=== PATIENT | female | born 1940 | race Caucasian/White ===

== ENCOUNTER 2025-01-12 10:47 | Outpatient (CLI) | payer MEDICARE, SELFPAY ==
--- NOTE | 2025-01-12 11:20 | ECG_ITS ---
Test Date: 2025-01-12 11:29:46 Measurements Intervals [place] Rate: 57 P: 70 AK: 167 QRS: 9 QRSD: 108 T: 61 QT: 441 QTc: 432 Interpretive Statements SINUS BRADYCARDIA NONSPECIFIC ST & T-WAVE ABNORMALITY No previous ECG available for comparison Electronically Signed On 01-12-2025 13:17:36 CDT by Avis Villatoro M.D.
[2025-01-12 11:55] LABS: Anion Gap 11 mmol/L (4-12); Blood Urea Nitrogen 37 mg/dL (7-17); Calcium 9.7 mg/dL (8.4-10.2); Carbon Dioxide 26 mmol/L (22-30); Chloride 101 mmol/L (98-107); Estimated Glomerular Filt Rate 29; Glucose 106 mg/dL (65-110); Potassium 3.8 mmol/L (3.4-5.0); Sodium 138 mmol/L (137-145)
[2025-01-12 12:00] LABS: INR 1.1; Prothrombin Time 14.5 Seconds (11.1-14.7)
[2025-01-12 12:01] LABS: Partial Thromboplastin Time 36.1 Seconds (22.3-36.8)
--- OUTSIDE RECORDS SUMMARY | 2025-01-12 12:06 | XMS_ITS | Encounter Summary ---
Author Organization [facility] Address [address] [facility] [place] [address] Phone Care Team Providers Care Physician Office Rep Name Role Phone Rob Mendoza MD Primary Care Provider [phone] Teresa Ch MD Primary Care Provider [phone] Jasmin Kyle MD Unavailable Artie Flynn MD Primary Care Provider [phone] Chichi Gomez RN Unavailable Unavailable Encounter Details Date Type Department Care Team (Late st Contact Info) Description 08/10/2024 Nursing Facility [facility] [address] [place] [address] Chris Chau, PAC [address] [place], [place] [id number] Social History Tobacco Use Types Packs/Day Years Used Date Smoking Tobacco: Former Cigarettes Q uit: 02/28/2014 Smokeless Tobacco: Never Alcohol Use Standard Drinks/Week Comments No 0 (1 standard drink = 0.6 oz pur e alcohol) [facility] Utilities Answer Date Recorded In the past 12 months has [employer] gas, oil, or water company threatened to shut off services in your home? Patient declined 06/30/2024 Social Connection and Isolation Panel [NHANES] A nswer Date Recorded In a typical week, how many times do you talk on the phone with family, friends, or neighbors? Patient declined 06/30/2024 How often do you get togethe r with friends or relatives? Patient declined 06/30/2024 How often do you attend advent or methodist serv ices? Patient declined 06/30/2024 Do you belong to any clubs o r organizations such as advent groups, unions, fraternal or athletic groups, or school groups? Patient declined 06/30/2024 How often do you attend meet ings of the clubs or organizations you belong to? Patient declined 06/30/2024 Are you , , di vorced, , never , or living with a partner? Patient declined 06/30/2024 AUDIT-C Answer Date Recorded Q1: How often do you have a drink containing alc ohol? Patient declined 06/30/2024 Q2: How many drinks containi ng alcohol do you have on a typical day when you are drinking? Patient declined 06/30/2024 Q3: How often do you have si x or more drinks on one occasion? Patient declined 06/30/2024 Overall Financial Resource Strain (CARDIA) Answe r Date Recorded How hard is it for you to pa y for the very basics like food, housing, medical care, and heating? Patient declined 06/30/2024 PHQ-2 Answer Date Recorded Total Score - Questions 1-9 0 12/17 [facility] of Occupat ional [facility] - Occupational Stress Questionnaire Answer Date Recorded Do you feel stress - tense, restless, nervous, or anxious, or unable to sleep at night because your mind is troubled all the time - these days? Patient declined 06/30/2024 Exercise Vital Sign Answer Date Recorde d On average, how many days pe r week do you engage in moderate to strenuous exercise (like a brisk walk)? Patient declined On average, how many minutes do you engage in exercise at this level? Patient declined 06/30/2024 Hunger Vital Sign Answer Date Recorded Within the past 12 months, y ou worried that your food would run out before you got the money to buy more. Patient declined Within the past 12 months, t he food you bought just didn't last and you didn't have money to get more. Patient declined PRAPARE - Transportation Answer Date Re corded In the past 12 months, has l ack of transportation kept you from medical appointments or from getting medications? Patient declined 06/30/2024 In the past 12 months, has l ack of transportation kept you from meetings, work, or from getting things needed for daily living? Patient declined 06/30/2024 Housing Stability Vital Sign Answer Cosme e Recorded In the last 12 months, was t here a time when you were not able to pay the mortgage or rent on time? No 01/11/2024 In the last 12 months, how many places have you lived? 1 01/11/2024 In the last 12 months, was t here a time when you did not have a steady place to sleep or slept in a senior living (including now)? No 01/11/2024 Housing Stability Vital Sign Answer Cosme e Recorded In the last 12 months, was t here a time when you were not able to pay the mortgage or rent on time? Patient declined 06/30/20 24 In the past 12 months, how m any times have you moved where you were living? 1 06/30/2024 At any time in the past 12 m [facility], were you homeless or living in a senior living (including now)? Patient declined 06/30/2024 Sexually Active Control Partners Comments Not Currently Comments No Sex and Gender Information Value Date Recorded Sex Assigned at Not on file Legal Sex Female 7:34 PM CDT Gender Identity Not on file Sexual Orientation Not on file documented as of this encounter Progress Notes * Chris Chau, PAC - 08/10/2024 2:22 PM CDT [facility] PROGRESS NOTE Nichelle Hunt is a 84 y.o. female at [facility] Nursing facility for rehabilitation. Subjective: Interval History: I am seeing patient today for a skilled encounter. She is sitting up comfortably in her bed. Says she is feeling ???better?? . Shortness of breath is much improved. Orthopnea has basically resolved. She has no acute concerns at this time. Past Medical History Positives Diagnosis Date Glaucoma Gout Hypertension Melanoma (HCC) on left side of face Osteoporosis Stroke (HCC) Thyroid disease Vitamin D deficiency Family History Problem Relation Age of Onset Cancer Mother Social History Socioeconomic History Marital status: Spouse name: Not on file Number of children: Not on file Years of education: Not on file Highest education level: Not on file Occupational History Not on file Tobacco Use Smoking status: Former Current packs/day: 0.00 Types: Cigarettes Quit date: 02/28/2014 Years since quittin.4 Smokeless tobacco: Never Vaping Use Vaping status: Never Used Substance and Sexual Activity Alcohol use: No Alcohol/week: 0.0 oz Drug use: No Sexual activity: Not Currently Other Topics Concern Not on file Social History Narrative Not on file Social Determinants of Health Financial Resource Needs: Patient Declined (06/30/2024) Overall Financial Resource Strain (CARDIA) Difficulty of Paying Living Expenses: Patient declined Food Insecurity Needs: Patient Declined (06/30/2024) Hunger Vital Sign Worried About Running Out of Food in the Last Year: Patient declined Ran Out of Food in the Last Year: Patient declined Transportation Needs: Patient Declined (06/30/2024) PRAPARE - Transportation Lack of Transportation (Medical): Patient declined Lack of Transportation (Non-Medical): Patient declined Physical Activity: Patient Declined (06/30/2024) Exercise Vital Sign Days of Exercise per Week: Patient declined Minutes of Exercise per Session: Patient declined Stress: Patient Declined (06/30/2024) [employer] [place] of Occupational Health - Occupational Stress Questionnaire Feeling of Stress : Patient declined Social Integration: Patient Declined (06/30/2024) Social Connection and Isolation Panel [NHANES] Frequency of Communication with Friends and Family: Patient declined Frequency of Social Gatherings with Friends and Family: Patient declined Attends Quaker Services: Patient declined Active Member of Clubs or Organizations: Patient declined Attends Club or Organization Meetings: Patient declined Marital Status: Patient declined Intimate Partner Violence: Patient Declined (06/30/2024) Humiliation, Afraid, Rape, and Kick questionnaire Fear of Current or Ex-Partner: Patient declined Emotionally Abused: Patient declined Physically Abused: Patient declined Sexually Abused: Patient declined Housing Stability: Patient Declined (06/30/2024) Housing Stability Vital Sign Unable to Pay for Housing in the Last Year: Patient declined Number of Times Moved in the Last Year: 1 Homeless in the Last Year: Patient declined Past Surgical History: Procedure Laterality Date APPENDECTOMY BACK SURGERY CARPAL TUNNEL RELEASE Bilateral CHOLECYSTECTOMY EYE SURGERY Bilateral 2013 cataract surgery with lens implant HAND SURGERY HIP SURGERY Right HYSTERECTOMY Review of Systems: A 14 point comprehensive review of systems was negative except what is documented in interval history above. Objective: Exam: Vital Signs: Recent vital signs were reviewed in the electronic medical records at nursing facility and are unremarkable. General: Well developed, well nourished, in no distress - pleasant, obese I a higher Skin: Normal appearance, normal turgor, -skin lesion lateral to left nose - wound dressing on distal right lower extremity is clean, dry and intact HEENT: Normocephalic, atraumatic, no flaring Eyes: nonicteric, intact extra occular movement, PERRL Neck: normal, supple, no lymphadenopathy Heart: regular rate and rhythm, S1, S2 normal, no murmur, click, rub or gallop Lungs: clear to ausculation, normal respirations with no accessory muscle use, normal rate Abdominal: soft, non-tender; bowel sounds normal; no masses, no organomegaly Extremities: no deformities, joint mobility appears intact, no clubbing Neuro: Non-focal, CN intact, sensory and motor intact Psychological: alert and oriented X3, appropriate mood and affect, Intact judgement and memory Lab Results: 07/06/2024: BUN 31, albumin 2.2 and alk-phos 149, rest of CMP is unremarkable. CBC with WBC of 3.4,hemoglobin 10.5 otherwise unremarkable. 07/26/2024: CMP with albumin 2.4, alk-phos 153 otherwise unremarkable. CBC with WBC of 2.7, hemoglobin 10.6, platelet count 81 otherwise unremarkable. Imaging: Arterial Doppler results from 07/14/2024: IMPRESSION: . 1. Atherosclerotic changes in visualized bilateral lower limb arteries with multifocal calcified and soft plaques. 2. Monophasic waveform in right distal SFA and both DPA favoring severe peripheral arterial diseasewith possibility of hemodynamic significant stenosis. No flow seen in right MONOMER RECOVERY SUPERVISOR, right SFA, right popliteal and both TOBACCO WETTER, possibility of their complete occlusion cannot be excluded. CT angiogram is advised for further evaluation. . Interpreting Radiology Company: [employer] ([employer]) . Interpreting Doctor: Lita Ortiz MD . Electronically Signed By: Lita Ortiz MD . Signed Date: Physician electronically signed on - 07/14/2024 09:22:35 PM 08/07/2024 Chest x-ray IMPRESSION: . Findings suggestive of worsened CHF more more focal airspace changes in the left lower lobe retrocardiac region with unchanged opacity in the right mid lung. Assessment/Plan: Acute COVID 19 infection 07/24: Diagnosed this afternoon. Continue supportive care. I will schedule the Tessalon for her cough. P.r.n. Zofran. Rest and hydration. Paxilovid not ordered due to the finances. Does not meet criteria for Decadron. Nursing staff to monitor vitals and O2 saturations very closely. 08/02: Symptoms are improving. 08/07/2024: She developed hypoxia last night and is requiring oxygen presumably from her COVID-19 infection. Will check x-ray to investigate further. DuoNebs have been scheduled for the rest of the week and can be used p.r.n. as well. I ordered a course of Decadron. Mucinex scheduled for the rest of week. Oxygen to be weaned as tolerated 08/10: Her respiratory status is much improved. Chronic systolic congestive heart failure 08/10: Decompensated earlier this week. I restarted her Bumex which she had been on prior to her hospitalization. She is doing better today. body weight and kidney function needs to be monitored closely while on the Bumex considering during her hospitalization she had severe MILDRED. Generalized weakness and deconditioning Receiving snf care and physical therapy rehabilitation Right lower extremity cellulitis Complicated by chronic ulceration, bilateral lymphedema and chronic venous insufficiency Wound Care following P.r.n. pain medications On a course of cefuroxime through 07/15/202407/10: I applied Dwayne wraps to both of the lower extremities today and she says that this gave her relief. Will continue with the Dwayne wraps during the day take off at night 07/17: No signs of infection. Wound Care following. Peripheral arterial disease Arterial Dopplers from 07/14/2024 showing severe peripheral arterial disease. 07/17/2024: I added aspirin and statin on to her regimen. CT angio aorta with runoff ordered for further evaluation 07/24: CT angio completed last week showing mild disease and no need for surgical referral at this time. Constipation Complicated by her current oxycodone use and being less mobile than normal 07/10: Uncontrolled. MiraLax increase to b.i.d. and start her on Colace b.i.d.. 07/17: Resolved 08/07: She developed diarrhea recently. MiraLax changed to p.r.n. and her Movantik has been discontinued. 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 This note was dictated using [employer] fluency dictation system and there may be errors in chief order dispatcher. Despite proof reading the note, there may be mistakes and I apologize for those. By: Chris Chau, PAC, 08/10/2024 2:22 PM CDT documented in this encounter Plan of Treatment Upcoming Encounters Date Type Department Care Team (Late st Contact Info) Description 06/07/2025 11:00 AM CDT Office Visit [facility] - Primary Care - [place] [address] [place] [address] Artie Flynn MD [address] [place] [address] documented as of this encounter Visit Diagnoses Not on filedocumented in this encounter Additional Health Concerns Assessment Noted Time PHQ-9 Depression Total Score: 0 01/11/20 24 9:52 AM CDT documented as of this encounter Care Teams Physician Office Rep Relationship Specialty Start Date End Date Rob Mendoza MD #[address] [address] PCP - General Family Medicine 09/30/18 08/31/24 Teresa Ch MD [address] [place] [address] PCP - General Family Medicine 09/01/24 12/03/24 Artie Flynn MD [address] [place] [address] PCP - General Internal Medicine 12/04/24 Jasmin Kyle MD [address] [place] [address] Consulting Physician Dermatology 12/04/24 Chichi Gomez RN [place] Nurse Scaffold Worker 01/01/25 documented as of this encounter
--- OUTSIDE RECORDS SUMMARY | 2025-01-12 12:06 | XMS_ITS | Encounter Summary ---
Author Organization [facility] Address [address] [facility] [place] [address] Phone Care Team Providers Care Bulk Picker Name Role Phone Rob Mendoza MD Primary Care Provider [phone] Teresa Ch MD Primary Care Provider [phone] Jamsin Kyle MD Unavailable [phone] Artie Flynn MD Primary Care Provider [phone] Chichi Gomez RN Unavailable Unavailable Encounter Details Date Type Department Care Team (Late st Contact Info) Description 07/24/2024 Nursing Facility [facility] [address] [place] [address] Chris Chau, PAC [address] [place], [place] [id number] Social History Tobacco Use Types Packs/Day Years Used Date Smoking Tobacco: Former Cigarettes Q uit: 02/28/2014 Smokeless Tobacco: Never Alcohol Use Standard Drinks/Week Comments No 0 (1 standard drink = 0.6 oz pur e alcohol) [facility] Utilities Answer Date Recorded In the past 12 months has [employer], gas, oil, or water company threatened to [...] declined 06/30/2024 How often do you attend mandaeism or faith serv ices? Patient declined 06/30/2024 Do you belong to any clubs o r organizations such as mandaeism groups, unions, fraternal or athletic groups, or [...] Total Score - Questions 1-9 0 12/17 [facility] of Occupat ional [facility] - Occupational Stress Questionnaire Answer Date Recorded [...] place to sleep or slept in a fdc (including now)? No 01/11/2024 Housing Stability Vital [...] any time in the past 12 m [facility], were you homeless or living in a fdc (including now)? Patient declined 06/30/2024 Sexually Active Control Partners Comments Not Currently Comments No Sex and Gender Information Value Date Recorded Sex Assigned at Not on file Legal Sex Female 7:34 PM CDT Gender Identity Not on file Sexual Orientation Not on file documented as of this encounter Progress Notes * Chris Chau, PAC - 07/24/2024 6:06 PM CDT [facility] PROGRESS NOTE Nichelle Hunt is a 84 y.o. female at [facility] for rehabilitation. Subjective: Interval History: I am seeing patient today for a skilled encounter. She is lying comfortably in bed. She says she is not been feeling well for your the last couple days. Reports that she has been having a nonproductive cough, feeling short of breath, sore throat, chills and also having diarrhea. I gave the nurse some orders which included checking for COVID and the nurse messaged me back this afternoon reporting that her COVID test was positive. Past Medical History Positives Diagnosis Date Glaucoma [...] Session: Patient declined Stress: Patient Declined (06/30/2024) [place] of Occupational Health - Occupational Stress Questionnaire Feeling of Stress : Patient declined Social Integration: Patient Declined (06/30/2024) Social Connection and Isolation Panel [NHANES] Frequency of Communication with Friends and Family: Patient declined Frequency of Social Gatherings with Friends and Family: Patient declined Attends Anglican Services: Patient declined Active Member of Clubs [...] with WBC of 3.4,hemoglobin 10.5 otherwise unremarkable. Imaging: Arterial Doppler results from 07/14/2024: IMPRESSION: . 1. Atherosclerotic changes in visualized bilateral lower limb arteries with multifocal calcified and soft plaques. 2. Monophasic waveform in right distal SFA and both DPA favoring severe peripheral arterial diseasewith possibility of hemodynamic significant stenosis. No flow seen in right CLAIM REPRESENTATIVE, right SFA, right popliteal and both HOME SCHOOL LIAISON OFFICER, possibility of their complete occlusion cannot be excluded. CT angiogram is advised for further evaluation. . Interpreting Radiology Company: [employer] . Interpreting Doctor: Lita Ortiz MD . Electronically Signed By: Lita Ortiz MD . Signed Date: Physician electronically signed on - 07/14/2024 09:22:35 PM Assessment/Plan: Acute COVID 19 infection 07/24: Diagnosed this afternoon. Continue supportive care. I will schedule the Tessalon for her cough. P.r.n. Zofran. Rest and hydration. Paxilovid not ordered due to the finances. Does not meet criteria for Decadron. Nursing staff to monitor vitals and O2 saturations very closely. Generalized weakness and deconditioning Receiving long-term care and physical therapy rehabilitation Right lower [...] start her on Colace b.i.d.. 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 This note was dictated using M*Modal fluency dictation system and there may be errors in pointer machine operator. Despite proof reading the note, there may be mistakes and I apologize for those. By: BURT Styles, 07/24/2024 6:06 PM CDT documented in this encounter Plan of Treatment Upcoming Encounters Date Type Department Care Team (Late st Contact Info) Description 06/07/2025 11:00 AM CDT Office Visit [facility] - Primary Care - [place] [address] [place] [address] Artie Flynn MD [address] [place] [address] documented as of this encounter Visit Diagnoses Not on filedocumented in this encounter Additional Health Concerns Assessment Noted Time PHQ-9 Depression Total Score: 0 01/11/20 9:52 AM CDT documented as of this encounter Care Teams Bulk Picker Relationship Specialty Start Date End Date Rob Mendoza MD #[address] [address] PCP - General Family Medicine 09/30/18 08/31/24 Teresa Ch MD [address] [place] [address] PCP - General Family Medicine 09/01/24 12/03/24 Artie Flynn MD [address] [place] [address] PCP - General Internal Medicine 12/04/24 Jasmin Kyle MD [address] [place] [address] Consulting Physician Dermatology 12/04/24 Chichi Gomez, RN [place] Nurse Nurse Orthopaedic 01/01/25 documented as of this encounter
--- OUTSIDE RECORDS SUMMARY | 2025-01-12 12:06 | XMS_ITS | Encounter Summary ---
Author Organization [facility] Address [address] [facility] [place] [address] Phone Care Team Providers Care [employer] Humanities Teacher Name Role Phone Jasmin Kyle MD Unavailable [phone] Artie Flynn MD Primary Care Provider [phone] Chichi Gomez RN Unavailable Unavailable Reason for Visit * Reason Onset Date Comments Advice Only 12/20/2024 Encounter Details Date Type Department Care Team (Late st Contact Info) Description 12/20/2024 Telephone [facility] [address] [place] [address] Artie Flynn MD [address] [place] [address] Advice Only Social History Tobacco Use Types Packs/Day Years Used Date Smoking Tobacco: Former Cigarettes Q uit: 02/28/2014 Smokeless Tobacco: Never Alcohol Use Standard Drinks/Week Comments No 0 (1 standard drink = 0.6 oz pur e alcohol) [facility] Utilities Answer Date Recorded In the past 12 months has [employer] electric, gas, oil, or water company threatened to shut off services in your home? No 12/04/2024 Social Connection and Isolat ion Panel [NHANES] Answer Date Recorded In a typical week, how many times do you talk on the phone with family, friends, or neighbors? Once a week 12/04/2024 How often do you get togethe r with friends or relatives? Never 12/04/2024 How often do you attend chur ch or pentecostalism services? More than 4 times per year 12/04/2024 Do you belong to any clubs o r organizations such as scientology groups, unions, fraternal or athletic groups, or school groups? Yes 12/04/2024 How often do you attend meet ings of the clubs or organizations you belong to? Never 12/04/2024 Are you , , di vorced, , never , or living with a partner? 12/04/2024 AUDIT-C Answer Date Recorded Q1: How often do you have a drink containing alcohol? Patient declined 12/04/2024 Q2: How many drinks containi ng alcohol do you have on a typical day when you are drinking? Patient does not drink Q3: How often do you have si x or more drinks on one occasion? Never 12/04/2024 Overall Financial Resource Strain (CARDIA) Answe r Date Recorded How hard is it for you to pa y for the very basics like food, housing, medical care, and heating? Not hard at all 12/04/2024 PHQ-2 Answer Date Recorded Total Score - Questions 1-9 0 11/18 [facility] - Occupational Stress Questionnaire Answer Date Recorded Do you feel stress - tense, restless, nervous, or anxious, or unable to sleep at night because your mind is troubled all the time - these days? Not at all 12/04/2024 Exercise Vital Sign Answer Date Recorde d On average, how many days pe r week do you engage in moderate to strenuous exercise (like a brisk walk)? 5 days 12/04/2024 On average, how many minutes do you engage in exercise at this level? 10 min 12/04/2024 Hunger Vital Sign Answer Date Recorded Within the past 12 months, y ou worried that your food would run out before you got the money to buy more. Never true 12/04/19 25 Within the past 12 months, t he food you bought just didn't last and you didn't have money to get more. Never true 12/04/2024 PRAPARE - Transportation Answer Date Re corded In the past 12 months, has l ack of transportation kept you from medical appointments or from getting medications? No 02/1 04/2025 In the past 12 months, has l ack of transportation kept you from meetings, work, or from getting things needed for daily living? No 12/04/2024 Housing Stability Vital Sign Answer Cosme e [...] place to sleep or slept in a halfway (including now)? No 01/11/2024 Housing Stability Vital Sign Answer Cosme e Recorded In the last 12 months, was t here a time when you were not able to pay the mortgage or rent on time? No 12/04/2024 In the past 12 months, how m any times have you moved where you were living? 1 12/04/2024 At any time in the past 12 m [facility], were you homeless or living in a halfway (including now)? No 12/04/2024 Sexually Active Control Partners Comments Not Currently Comments No Sex and Gender Information Value Date Recorded Sex Assigned at Not on file Legal Sex Female 7:34 PM CDT Gender Identity Not on file Sexual Orientation Not on file documented as of this encounter Miscellaneous Notes * Telephone Encounter - Kimmy Ruiz RN - 12/20/2024 12:13 PM CITY COLLECTOR Routing to Tori Pickard change control specialist. COLLECTOR * Telephone Encounter - Bernie Hidalgo - 12/20/2024 12:02 PM CST call came in from [facility] for Nichelle Hunt a referral to a district court reporter and it was sent to a plastic surgeon they just wanted to get the referral to the right office. Please check on it and get it to the right place Patient's PCP is Artie Flynn MD. Thank you. COLLECTOR documented in this encounter Plan of Treatment Upcoming Encounters Date Type Department Care Team (Late st Contact Info) Description 06/07/2025 11:00 AM CDT Office Visit [facility] - Primary Care - [place] [address] [place] [address] Artie Flynn MD [address] [place] [address] documented as of this encounter Visit Diagnoses Not on filedocumented in this encounter Additional Health Concerns Assessment Noted Time PHQ-9 Depression Total Score: 0 12/04/19 1:05 PM CITY COLLECTOR documented as of this encounter Care Teams [employer] Humanities Teacher Relationship Specialty Start Date End Date Artie Flynn MD [address] [place] [address] PCP - General Internal Medicine 12/04/24 Jasmin Kyle MD [facility] [place] [address] Consulting Physician Dermatology 12/04/24 Chichi Gomez RN [place] Nurse Blocker Automatic 01/01/25 documented as of this encounter
--- OUTSIDE RECORDS SUMMARY | 2025-01-12 12:06 | XMS_ITS | Encounter Summary ---
Author Organization [facility] Address [address] [place] [address] Phone Care Team Providers Care Marketing Trainee Name Role Phone Rob Mendoza MD Primary Care Provider Chichi Gomez RN Unavailable Unavailable Phan Gómez MD Unavailable Teresa Ch MD Primary Care Provider [phone] Jasmin Kyle MD Unavailable [phone] Artie Flynn MD Primary Care Provider [phone] Chichi Gomez RN Unavailable Unavailable Reason for Visit * Reason Comments Medication Refill Encounter Details Date Type Department Care Team (Late st Contact Info) Description 07/02/[facility] [address] [place] [address] Rob Mendoza MD [address] [address] Medication Refill Social History Tobacco Use Types Packs/Day Years Used Date Smoking Tobacco: Former Cigarettes Q uit: 02/28/2014 Smokeless Tobacco: Never Alcohol Use Standard Drinks/Week Comments No 0 (1 standard drink = 0.6 oz pur e alcohol) PHQ-2 Answer Date Recorded PHQ-2 Score 0 06/28/2019 Comments No Sex and Gender Information Value Date Recorded Sex Assigned at Not on file Legal Sex Female 7:34 PM CDT Gender Identity Not on file Sexual Orientation Not on file documented as of this encounter Miscellaneous Notes * Telephone Encounter - Rob Mendoza MD - 07/03/2020 12:21 PM CDT Prescription approved. Please call in * Telephone Encounter - Virginia Underwood - 07/03/2020 12:02 PM CDT Medication failed the protocol provider to review and approve the medication order. Requested Prescriptions Pending Prescriptions Disp Refills levothyroxine (SYNTHROID) 50 MCG Tablet [Pharmacy Med Name: L-THYROXINE (SYNTHROID) TABS 50MCG] 90 Tab 1 Sig: TAKE 1 TABLET DAILY Endocrinology: Hypothyroid Agents Passed - 07/02/2020 11:10 PM Passed - Valid encounter within last 12 months Past Office Visits Recent Outpatient Visits 5 months ago CAD S/P percutaneous coronary angi[facility] Rob Mendoza MD 11 months ago CAD S/P percutaneous coronary angi[facility] Rob Mendoza MD 1 year ago Essential hypertension [facility] Rob Mendoza MD 1 year ago Essential hypertension [facility] Criss Galdamez PAC 2 years ago Essential hypertension [facility] Cee Contreras MD Upcoming Appointments Future Appointments In 1 week Lab, [facility], [facility] In 2 weeks Rob Mendoza MD [facility], [facility] [place] FLOOR INSTALLER - Recent and Past Visits Recent Visits Date Type Provider Dept 01/18/20 Telemedicine Rob Mendoza MD [facility] 07/19/19 Office Visit Rob Mendoza MD [facility] Showing recent visits within past 460 days with a meds authorizing provider and meeting all other requirements Future Appointments Date Type Provider Dept 07/22/20 Appointment Rob Mendoza MD [facility] Showing future appointments within next 90 days with a meds authorizing provider and meeting all other requirements Passed - TSH in normal range and within 360 days TSH Date Value Ref Range Status 01/09/2020 1.630 0.270 - 4.200 mIU/L Final Routing to PCP for review r/t unable to sign due to lab values. * Telephone Encounter - Virginia Underwood - 07/03/2020 12:02 PM CDT ?? BUN 31 (H) 01/09/2020 ?? CALCIUM 9.6 01/09/2020 ?? CREATININE 1.23 (H) 01/09/2020 documented in this encounter Plan of Treatment Upcoming Encounters Date Type Department Care Team (Late st Contact Info) Description 06/07/2025 11:00 AM CDT Office Visit [facility] - Primary Care - Steve [address] [place] [address] Artie Flynn MD [address] [place] [address] documented as of this encounter Visit Diagnoses Not on filedocumented in this encounter Additional Health Concerns Assessment Noted Time PHQ-9 Depression Total Score: 0 01/24/20 19 10:00 AM CDT documented as of this encounter Care Teams Marketing Trainee Relationship Specialty Start Date End Date Rob Mendoza MD [address] [address] PCP - General Family Medicine 09/30/18 08/31/24 Phan Gómez MD [address] [place] [address] PCP - Hospice Attending Provider 06/30/24 07/03/24 Teresa Ch MD [address] [place] [address] PCP - General Family Medicine 09/01/24 12/03/24 Artie Flynn MD [address] [place] [address] PCP - General Internal Medicine 12/04/24 Chichi Gomez RN [place] Nurse Budget Engineer 01/05/24 07/03/24 Jasmin Kyle MD [address] [place] [address] Consulting Physician Dermatology 12/04/24 Chichi Gomez, RN [place] Nurse Budget Engineer 01/01/25 documented as of this encounter
--- OUTSIDE RECORDS SUMMARY | 2025-01-12 12:06 | XMS_ITS | Encounter Summary ---
Author Organization [facility] Address [address] [place] [address] Phone Care Team Providers Care Investor Relations Associate Name Role Phone Rob Mendoza MD Primary Care Provider [phone] Teresa Ch MD Primary Care Provider [phone] Jasmin Kyle MD Unavailable Artei Flynn MD Primary Care Provider [phone] Chichi Gomez RN Unavailable Unavailable Encounter Details Date Type Department Care Team (Late st Contact Info) Description 08/07/2024 Nursing Facility [facility] [address] [place] [address] Chris Chau, PAC [address] [place], [place] [id number] Social History Tobacco Use Types Packs/Day Years Used Date Smoking Tobacco: Former Cigarettes Q uit: 02/28/2014 Smokeless Tobacco: Never Alcohol Use Standard Drinks/Week Comments No 0 (1 standard drink = 0.6 oz pur e alcohol) [facility] Utilities Answer Date Recorded In the past 12 months has [employer], gas, oil, or water company threatened to [...] declined 06/30/2024 How often do you attend quaker or mandaeism serv ices? Patient declined 06/30/2024 Do you belong to any clubs o r organizations such as quaker groups, unions, fraternal or athletic groups, or [...] Total Score - Questions 1-9 0 12/17 [facility] - Occupational Stress Questionnaire Answer Date Recorded [...] place to sleep or slept in a correction (including now)? No 01/11/2024 Housing Stability Vital [...] were you homeless or living in a correction (including now)? Patient declined 06/30/2024 Sexually Active Control Partners Comments Not Currently Comments No Sex and Gender Information Value Date Recorded Sex Assigned at Not on file Legal Sex Female 7:34 PM CDT Gender Identity Not on file Sexual Orientation Not on file documented as of this encounter Progress Notes * Chris Chau, PAC - 08/07/2024 11:37 AM CDT [facility] CORRECTION PROGRESS NOTE Nichelle Hunt is a 84 y.o. female at [facility]. Subjective: Interval History: I am seeing patient today for a skilled encounter. She is sitting comfortably in her chair. Reports that last night she was having shortness of breath and feeling overheated. Oxygen saturation was apparently as low as 78% according to the patient. She was placed on supplemental oxygen. Currently she says she is feeling ???better?? . No fevers. No chest pain or worsening edema. She is still wearing 3 L supplemental oxygen which is a new requirement for her, her oxygen saturation is 97% on the 3 L at this time. The rest of her vitals are within normal limits during my exam. She is currently using her inhaler. She says that at home when she gets short of breath like this she has a nebulizer that she uses. Past Medical History Positives Diagnosis Date Glaucoma [...] Session: Patient declined Stress: Patient Declined (06/30/2024) [facility] - Occupational Stress Questionnaire Feeling of Stress : Patient declined Social Integration: Patient Declined (06/30/2024) Social Connection and Isolation Panel [NHANES] Frequency of Communication with Friends and Family: Patient declined Frequency of Social Gatherings with Friends and Family: Patient declined Attends Restoration Services: Patient declined Active Member of Clubs [...] significant stenosis. No flow seen in right THEATRE PROFESSOR, right SFA, right popliteal and both SHEETER OPERATOR, possibility of their complete occlusion cannot be excluded. CT angiogram is advised for further evaluation. . Interpreting Radiology Company: [employer] . Interpreting Doctor: Lita Ortiz MD . [...] week. 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 This note was dictated using [employer] fluency dictation system and there may be errors in shoeblack. Despite proof reading the note, there may be mistakes and I apologize for those. By: Chris Chau PAC, 08/07/2024 11:40 AM CDT documented in this encounter Plan of Treatment Upcoming Encounters Date Type Department Care Team (Late st Contact Info) Description 06/07/2025 11:00 AM CDT [facility] - [place] [address] [place] [address] Artie Flynn MD [address] [place] [address] documented as of this encounter Visit Diagnoses Not on filedocumented in this encounter Additional Health Concerns Assessment Noted Time PHQ-9 Depression Total Score: 0 01/11/20 24 9:52 AM CDT documented as of this encounter Care Teams Investor Relations Associate Relationship Specialty Start Date End Date Rob Mendoza MD [address] [address] PCP - General Family Medicine 09/30/18 08/31/24 Teresa Ch MD [address] [place] [address] PCP - General Family Medicine 09/01/24 12/03/24 Artie Flynn MD [address] [place] [address] PCP - General Internal Medicine 12/04/24 Jasmin Kyle MD [address] [place] [address] Consulting Physician Dermatology 12/04/24 Chichi Gomez RN [place] Nurse Caterpillar Mechanic 01/01/25 documented as of this encounter
--- OUTSIDE RECORDS SUMMARY | 2025-01-12 12:06 | XMS_ITS | Encounter Summary ---
Author Organization [facility] Address [address] [place] [address] Phone Care Team Providers Care Edge Trimmer Name Role Phone Rob Mendoza MD Primary Care Provider [phone] Chichi Gomez RN Unavailable Unavailable Phan Gómez MD Unavailable [phone] Teresa Ch MD Primary Care Provider [phone] Jasmin Kyle MD Unavailable [phone] Artie Flynn MD Primary Care Provider [phone] Chichi Gomez RN Unavailable Unavailable Reason for Visit * Reason Comments Medication Refill Encounter Details Date Type Department Care Team (Late st Contact Info) Description 03/16/2024 Refill [facility] - Family Medicine [facility] [address] [place] [address] Rob Mendoza MD [address] [address] Medication Refill Social History Tobacco Use Types Packs/Day Years Used Date Smoking Tobacco: Former Cigarettes Q uit: 02/28/2014 Smokeless Tobacco: Never Alcohol Use Standard Drinks/Week Comments No 0 (1 standard drink = 0.6 oz pur e alcohol) [facility] Utilities Answer Date Recorded In the past 12 months has [employer] electric, gas, oil, or water company threatened to shut off services in your home? No 01/11/2024 Social Connection and Isolation Panel [NHANES] A nswer Date Recorded In a typical week, how many times do you talk on the phone with family, friends, or neighbors? Once a week 01/11/20 How often do you get togethe r with friends or relatives? Never 01/11/2024 How often do you attend chur ch or faith services? 1 to 4 times per year 01/11/2024 Do you belong to any clubs o r organizations such as latter day groups, unions, fraternal or athletic groups, or school groups? No 01/11/2024 How often do you attend meet ings of the clubs or organizations you belong to? Never 01/11/2024 Are you , , di vorced, , never , or living with a partner? 01/11/2024 AUDIT-C Answer Date Recorded Q1: How often do you have a drink containing alcohol? Never 01/11/2024 Q2: How many drinks containi ng alcohol do you have on a typical day when you are drinking? Patient does not drink Q3: How often do you have si x or more drinks on one occasion? Never 01/11/2024 Overall Financial Resource Strain (CARDIA) Answe r Date Recorded How hard is it for you to pa y for the very basics like food, housing, medical care, and heating? Not hard at all 01/11/2024 PHQ-2 Answer Date Recorded Total Score - Questions 1-9 0 12/17 [facility] - Occupational Stress Questionnaire Answer Date Recorded Do you feel stress - tense, restless, nervous, or anxious, or unable to sleep at night because your mind is troubled all the time - these days? Not at all 01/11/2024 Exercise Vital Sign Answer Date Recorde d On average, how many days pe r week do you engage in moderate to strenuous exercise (like a brisk walk)? 0 days 01/11/2024 On average, how many minutes do you engage in exercise at this level? 0 min 01/11/2024 Hunger Vital Sign Answer Date Recorded Within the past 12 months, y ou worried that your food would run out before you got the money to buy more. Never true 01/11/20 24 Within the past 12 months, t he food you bought just didn't last and you didn't have money to get more. Never true 01/11/2024 PRAPARE - Transportation Answer Date Re corded In the past 12 months, has l ack of transportation kept you from medical appointments or from getting medications? No 12/17 In the past 12 months, has l ack of transportation kept you from meetings, work, or from getting things needed for daily living? No 01/11/2024 Housing Stability Vital Sign Answer [...] place to sleep or slept in a [place] health care facility (including now)? No 01/11/2024 Sexually Active Control Partners Comments Not Currently Comments No Sex and Gender Information Value Date Recorded Sex Assigned at Not on file Legal Sex Female 7:34 PM CDT Gender Identity Not on file Sexual Orientation Not on file documented as of this encounter Miscellaneous Notes * Telephone Encounter - Ashley Blum RN - 03/16/2024 11:52 AM CDT Medication(s) refilled and signed per [facility] Chronic Medication Refill Standing Order for Pediatricand Adult Patients. Requested Prescriptions Pending Prescriptions Disp Refills potassium chloride SA (KLORCON M) 20 MEQ Tablet Controlled Release [Pharmacy Med Name: POTASSIUM [id number] ER TABLETS] 360 Tablet 0 Sig: Take 2 Tablets by mouth 2 times daily. Potassium Supplement Protocol Passed - 03/16/2024 9:36 AM Passed - Normal serum potassium in past 12 months POTASSIUM Date Value Ref Range Status 03/01/2024 4.1 3.5 - 5.1 mmol/L Final Passed - Visit with relevant provider in past 12 months or upcoming 90 days Recent Visits Date Type Provider Dept 03/01/24 Office Visit Rob Mendoza MD [facility] 11/11/23 Office Visit Rob Mendoza MD [facility] 09/01/23 Office Visit [facility] Showing recent visits within past 365 days and meeting all other requirements Future Appointments No visits were found meeting these conditions. Showing future appointments within next 90 days and meeting all other requirements documented in this encounter Plan of Treatment Upcoming Encounters Date Type Department Care Team (Late st Contact Info) Description 06/07/2025 11:00 AM CDT Office Visit [facility] - Primary Care - [place] [address] [place] [address] Artie Flynn MD [address] [place] [address] documented as of this encounter Visit Diagnoses Not on filedocumented in this encounter Additional Health Concerns Assessment Noted Time PHQ-9 Depression Total Score: 0 01/11/20 9:52 AM CDT documented as of this encounter Care Teams Edge Trimmer Relationship Specialty Start Date End Date Rob Mendoza MD [address] [address] PCP - General Family Medicine 09/30/18 08/31/24 Phan Gómez MD [address] [place] [address] PCP - Hospice Attending Provider 06/30/24 07/03/24 Teresa Ch MD [address] [place] [address] PCP - General Family Medicine 09/01/24 12/03/24 Artie Flynn MD [address] [place] [address] PCP - General Internal Medicine 12/04/24 Chichi Gomez RN [place] Nurse Aquaculture Farmer 01/05/24 07/03/24 Jasmin Kyle MD [address] [place] [address] Consulting Physician Dermatology 12/04/24 Chichi Gomez RN [place] Nurse Aquaculture Farmer 01/01/25 documented as of this encounter
--- OUTSIDE RECORDS SUMMARY | 2025-01-12 12:06 | XMS_ITS | Encounter Summary ---
Author Organization [facility] Address [address] [place] [address] Phone Care Team Providers Care Biochemist Name Role Phone Rbo Mendoza MD Primary Care Provider [phone] Teresa Ch MD Primary Care Provider [phone] Jasmin Kyle MD Unavailable [phone] Artie Flynn MD Primary Care Provider [phone] Chichi Gomez RN Unavailable Unavailable Encounter Details Date Type Department Care Team (Late st Contact Info) Description 08/14/2024 Nursing Facility [facility] [address] [place] [address] Chris Chau, PAC [address] [place], [place] [id number] Social History Tobacco Use Types Packs/Day Years Used Date Smoking Tobacco: Former Cigarettes Q uit: 02/28/2014 Smokeless Tobacco: Never Alcohol Use Standard Drinks/Week Comments No 0 (1 standard drink = 0.6 oz pur e alcohol) [facility] Utilities Answer Date Recorded In the past 12 months has Locationary, gas, oil, or water company threatened to [...] declined 06/30/2024 How often do you attend alevism or sabianist serv ices? Patient declined 06/30/2024 Do you belong to any clubs o r organizations such as alevism groups, unions, fraternal or athletic groups, or [...] Total Score - Questions 1-9 0 12/17 [facility] of Occupat ional [facility] - Occupational Stress Questionnaire Answer Date [...] place to sleep or slept in a residential (including now)? No 01/11/2024 Housing Stability Vital [...] any time in the past 12 m [facility], were you homeless or living in a residential (including now)? Patient declined 06/30/2024 Sexually Active Control Partners Comments Not Currently Comments No Sex and Gender Information Value Date Recorded Sex Assigned at Not on file Legal Sex Female 7:34 PM CDT Gender Identity Not on file Sexual Orientation Not on file documented as of this encounter Progress Notes * Chris Chau, PAC - 08/14/2024 12:22 PM CDT [facility] RESIDENTIAL PROGRESS NOTE Nichelle Hunt is a 84 y.o. female at [facility]. Subjective: Interval History: I am seeing patient today for a skilled encounter. She is sitting up comfortably in her chair. Says she is feeling ???better?? . Denies any shortness of breath. Feels like her respiratory status is back to her baseline. She is no longer requiring supplemental oxygen. She has no acute concerns at this [...] Session: Patient declined Stress: Patient Declined (06/30/2024) [place] [place] [facility] - Occupational Stress Questionnaire Feeling of Stress : Patient declined Social Integration: Patient Declined (06/30/2024) Social Connection and Isolation Panel [NHANES] Frequency of Communication with Friends and Family: Patient declined Frequency of Social Gatherings with Friends and Family: Patient declined Attends Cheondoism Services: Patient declined Active Member of Clubs [...] nourished, in no distress - pleasant, obese Skin: Normal appearance, normal turgor, -skin lesion [...] significant stenosis. No flow seen in right TRAFFIC ASSISTANT, right SFA, right popliteal and both GYNECOLOGY TEACHER, possibility of their complete occlusion cannot be excluded. CT angiogram is advised for further evaluation. . Interpreting Radiology Company: [email or web address] ([employer]) . Interpreting Doctor: Lita Ortiz MD . [...] during her hospitalization she had severe MILDRED. 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 This note was dictated using M*Modal fluency dictation system and there may be errors in cable respooler. Despite proof reading the note, there may be mistakes and I apologize for those. By: Chris Chau, PAC, 08/14/2024 12:22 PM CDT documented in this encounter Plan of Treatment Upcoming Encounters Date Type Department Care Team (Late st Contact Info) Description 06/07/2025 11:00 AM CDT Office Visit [facility] - Primary Care - [place] [address] [place] [address] Artie Flynn MD [address] [place] [address] documented as of this encounter Visit Diagnoses Not on filedocumented in this encounter Additional Health Concerns Assessment Noted Time PHQ-9 Depression Total Score: 0 01/11/20 24 9:52 AM CDT documented as of this encounter Care Teams Biochemist Relationship Specialty Start Date End Date Rob Mendoza MD [address] [address] PCP - General Family Medicine 09/30/18 08/31/24 Teresa Ch MD [address] [place] [address] PCP - General Family Medicine 09/01/24 12/03/24 Artie Flynn MD [address] [place] [address] PCP - General Internal Medicine 12/04/24 Jasmin Kyle MD [address] [place] [address] Consulting Physician Dermatology 12/04/24 Chichi Gomez RN [place] Nurse Meteorological Equipment Repairer 01/01/25 documented as of this encounter
--- OUTSIDE RECORDS SUMMARY | 2025-01-12 12:06 | XMS_ITS | Encounter Summary ---
Author Organization [facility] Address [address] [place] [address] Care Team Providers Care Professor Of Mathematics Name Role Phone Rob Mendoza MD Primary Care Provider [phone] Encounter Details Date Type Department Care Team (Late st Contact Info) Description 01/21/2024 Lab Requisition [facility] - DermPath Lab [address] [place] [address] [place] [address] [address] Social History Tobacco Use Types Packs/Day Years Used Date Smoking Tobacco: Never Assessed Sex and Gender Information Value Date Recorded Sex Assigned at Not on file Gender Identity Not on file Sexual Orientation Not on file documented as of this encounter Plan of Treatment Not on file documented as of this encounter Procedures Procedure Name Priority Date/Time Associated Diagnosis Comments DERMATOPATHOLOGY Routine 01/20/2024 3:33 AM CDT documented in this encounter Results * DERMATOPATHOLOGY (01/20/2024 3:33 AM CDT) Case Report Dermatopathology Report Case: [id number] Authorizing Provider: Rob Cazares MD Collected: 01/20/2024 03:33 AM Ordering Location: [facility] - Received: 01/21/2024 10:18 AM DermPath Lab Pathologist: Grisel Barker MD Specimen: Skin, left infraorbital cheek 11:08 AM CDT DERMATOPATHOLOGY LABORATORY Final Diagnosis Specimen A. SKIN, left infraorbital cheek: SQUAMOUS CELL CARCINOMA, WELL TO MODERATELY DIFFERENTIATED (C44.329) PRESENT AT MARGIN 4 11:08 AM CDT DERMATOPATHOLOGY LABORATORY Clinical History Squamous cell carcinoma, R/O Melanoma 4 11:08 AM CDT DERMATOPATHOLOGY LABORATORY Gross Description Specimen A: Received is one formalin filled container labeled with the patient's name and designated left infraorbital cheek. The specimen consists of a non-oriented ellipse of skin measuring [id number] mm. The epidermal surface is unremarkable. The margin is inked green. The 12 o'clock and 6 o'clock tips are submitted in cassette 1. The remainder of the ellipse is serially sectioned and submitted in cassette 2-7. Jar 1. 4 11:08 AM CDT DERMATOPATHOLOGY LABORATORY Microscopic Description Specimen A. SKIN, left infraorbital cheek: There are nests of squamous epithelial cells which arise from the epidermis and extend into the dermis. The some nests at the periphery have only focal central keratinization and rare horn heather formation. This lesion is present at the margin of the specimen. 4 11:08 AM CDT DERMATOPATHOLOGY LABORATORY Disclaimer An external and internal positive and negative controls are appropriate for the histochemical, immunohistochemical and immunofluorescence stain(s) in this case (if any), except where stated explicitly. The performance characteristics of the stain(s) cited in this report were developed and its performance characteristic determined by the Dermatopathology Laboratory at [facility], directed by Dr. Jenifer Casillas. These tests need not be, and therefore are not, approved by the [place] Food and Drug Administration. The tests are used for clinical purposes. Billing Codes Specimen Charges Stain Charges 31205 1 4 11:08 AM CDT DERMATOPATHOLOGY LABORATORY Embedded Images 4 11:08 AM CDT DERMATOPATHOLOGY LABORATORY Pathology/Cytolo gy TISSUE SPECIMEN FROM SKIN / Unknown 01/20/2024 3:33 AM CDT 01/21/2024 10:18 AM CDT Rob Cazares MD LAB - PATHOLOGY/CY TOLOGY ORDERABLES DERMATOPATHOLOGY LABORATORY [facility] - Department of Dermatology [facility] Special[facility] Medicine [address] [place] [address], [address] [phone] documented in this encounter Visit Diagnoses Not on filedocumented in this encounter Care Teams Professor Of Mathematics Relationship Specialty Start Date End Date Rob Mendoza MD [address] [place] [address] PCP - General Family Medicine 01/31/24 documented as of this encounter
--- OUTSIDE RECORDS SUMMARY | 2025-01-12 12:06 | XMS_ITS | Clinical Summary ---
Author Organization [facility] Address [address], [address] [address] Phone Care Team Providers Care Harness Tier Name Role Phone Jasmin Kyle MD Unavailable [phone] Artie Flynn MD Primary Care Provider [phone] Chichi Gomez RN Unavailable Unavailable Allergies Active Allergy Reactions Criticality Noted Date Comments Peanut (Diagnostic) Other (see Comments) 2017 Makes gout flare up Hydrocodone-Acetamin ophen Unknown Medications nitroGLYCERIN (NITROSTAT) 0.4 MG SL Tablet 1 Tablet by Sublingual route as needed for Chest pain. 30 Tablet 5 3 Active albuterol (Proventil HFA) 108 (90 Base) MCG/ACT Aerosol Solution take 2 Puffs by inhalation every 4 hours as needed for Cough or Wheezing. Active budesonide-formo terol fumarate (SYMBICORT) 160-4.5 MCG/ACT Aerosol take 1 Puff by inhalation 2 times daily. 4 Active bumetanide (BUMEX) 2 MG TabletIndication s:Congestive heart failure, unspecified HF chronicity, unspecified heart failure type (HCC) Take 2 mg by mouth daily. Active potassium chloride (KLOR-CON) 20 MEQ PackIndications: Congestive heart failure, unspecified HF chronicity, unspecified heart failure type (HCC) Take 20 mEq by mouth 2 times daily. 2 tabs po BID Active silver sulfADIAZINE (SILVADENE) 1 % CreamIndications :Skin lesion of face Apply 2 times daily. Active acetaminophen (TYLENOL) 500 MG TabletIndication s:Skin lesion of face Take 2,000 mg by mouth every 4 hours as needed for Moderate or more severe pain. Pt takes two 500 mg tabs po AM and hs Active gabapentin (NEURONTIN) 300 MG CapsuleIndicatio ns:Neuropathic Pain,Peripheral Neuropathy Take 1 Capsule by mouth 3 times daily for 360 days. Indications: Neuropathic Pain, Peripheral Nerve Disease 270 Capsule 3 4 08/27/20 25 Active levothyroxine (SYNTHROID) 50 MCG Tablet Take 1 Tablet by mouth daily for 360 days. 90 Tablet 3 4 09/06/20 25 Active metoprolol tartrate (LOPRESSOR) 50 MG Tablet Take 1 Tablet by mouth 2 times daily. 180 Tablet 1 4 Active fenofibrate (LOFIBRA) 54 MG Tablet Take 1 Tablet by mouth daily. 90 Tablet 1 4 Active allopurinol (ZYLOPRIM) 300 MG Tablet Take 1 Tablet by mouth daily. 90 Tablet 1 4 Active clopidogrel (PLAVIX) 75 MG TabletIndication s:Congestive heart failure, unspecified HF chronicity, unspecified heart failure type (HCC) TAKE 1 TABLET BY MOUTH DAILY. 90 Tablet 1 5 Active Cholecalciferol (Vitamin D3) 125 mcg Capsule Take 1 Capsule by mouth daily. Active miconazole 2 % PowderIndication s:Tinea corporis Apply 1 Application 2 times daily. 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 History of CVA (cerebrovascular accident) 2017 CAD S/P percutaneous coronary angioplasty 2017 Gout 02/09/2017 Mixed hyperlipidemia 01/30/2016 Hypertension, essential 01/30/2016 Mild intermittent asthma without complication Congestive heart failure 01/30/2016 Arthritis 01/30/2016 Obesity, Class III, BMI 40-49.9 (morbid obesity) 01/30/2016 Stage 3b chronic kidney disease 01/30/2016 Hypothyroidism due to acquired atrophy of thyroi d Resolved Problems Problem Noted Date Diagnosed Date Resolved Date MILDRED (acute kidney injury) 07/04/2024 Cellulitis of extremity 07/04/202411/18 Sepsis 06/30/2024 12/04/2024 Hospice care patient 06/30/2024 025 Prediabetes 02/09/2017 12/04/2024 Encounters Date Type Department Care Team Description 01/09/2025 10:00 AM CDT Patient Outreach [facility] [address] [place] [phone] Chichi Gomez, RN Care Management (CM RN Enrollment) 01/09/2025 Plan of Care Documentation [facility] [address] [place] [phone] 01/05/2025 [facility] [address] [place] [phone] Chichi Gomez, RN Care Management 01/01/2025 Patient Out[facility] [address] [place] [phone] Chichi Gomez, RN Patient Outreach (High Risk MSSP) 12/20/2024 Telephone [facility] [address] [place] [phone] Artie Flynn MD Advice Only 12/04/2024 1:00 PM 3RD GRADE TEACHER Office Visit [facility] [address] [place] [phone] Artie Flynn MD Hypertension, essential (Primary Dx); Mixed hyperlipidemia; Hypothyroidism due to acquired atrophy of thyroid; Arthritis; Stage 3b chronic kidney disease (HCC); Tinea corporis; Squamous cell carcinoma, face; Encounter for vaccination Discharge Disposition: Discharged to home or Selfcare 12/04/2024 Travel 11/24/2024 Telephone [facility] [address] [place] [address] Artie Flynn MD 11/17/2024 Refill [facility] [address] [place] [address] Rob Mendoza MD Medication Refill from Last 3 Months Immunizations Immunization Administration Dates Next Due Covid-19, Mrna, Lnp-s, PF, 1 00 mcg/0.5 mL Dose (Moderna) 02/24/2021,01/27/2021 Covid-19, Mrna, Lnp-s, Pf, Elver-sucrose, 30 Mcg/0.3 Ml (Pfizer) 12/04/2024 H1N1 Flu, Unspecified Formulation 06/02/2016 Influenza Vaccine greater than 3 yrs 06/03/2016, 06/13/2015,05/18/2014 Influenza Vaccine less than 3 yrs 06/09/2018 Influenza, High-dose, Quadrivalent 06/03/2023,,06/06/2020 Influenza, Quadrivalent, Adjuvanted 06/16/2021 Influenza, Seasonal, Injecta ble, Undefined 06/03/2016,06/13/2015,05/18/2014 Influenza, Trivalent, Adjuvanted, PF 09/01/2024 Influenza, high-dose, trivalent, PF 05/19,07/14/2019,06/20/2019,06/08,06/14/2017,06/04/2014,06/12/2013 Pneumococcal Vaccine - 13 Valent 07/26/2015 Pneumococcal Vaccine Adult - 23 Valent 9 Pneumococcal conjugate PCV20 , polysaccharide [id number] conjugate, adjuvant, PF 09/01/2024 TD VACCINE 12/16/2008 Zoster Vaccine, live 01/16/2009 Family History Medical History Relation Name Comments Cancer Mother Relation Name Status Comments Mother Social History Tobacco Use Types Packs/Day Years Used Date Smoking Tobacco: Former Cigarettes Q uit: 02/28/2014 Smokeless Tobacco: Never Tobacco Cessation:Counseling Given: Not Answered Alcohol Use Standard Drinks/Week Comments No 0 (1 standard drink = 0.6 oz pur e alcohol) [facility] Utilities Answer Date Recorded In the past 12 months has [employer], gas, oil, or water [employer] threatened to shut off services in your home? No 01/09/2025 Social Connection and Isolation Panel [NHANES] A nswer Date Recorded In a typical week, how many times do you talk on the phone with family, friends, or neighbors? Three times a week 01/10/20 How often do you get togethe r with friends or relatives? Once a week 01/09/2025 How often do you attend chur ch or gnosticism services? 1 to 4 times per year 01/09/2025 Do you belong to any clubs o r organizations such as zoroastrianism groups, unions, fraternal or athletic groups, or school groups? No 01/09/2025 How often do you attend meet ings of the clubs or organizations you belong to? Never 01/09/2025 Are you , , di vorced, , never , or living with a partner? 01/09/2025 AUDIT-C Answer Date Recorded Q1: How often do you have a drink containing alcohol? Never 01/09/2025 Q2: How many drinks containi ng alcohol do you have on a typical day when you are drinking? Patient does not drink Q3: How often do you have si x or more drinks on one occasion? Never 01/09/2025 Overall Financial Resource Strain (CARDIA) Answe r Date Recorded How hard is it for you to pa y for the very basics like food, housing, medical care, and heating? Not hard at all 01/09/2025 PHQ-2 Answer Date Recorded Total Score - Questions 1-9 0 12/17 [facility] - Occupational Stress Questionnaire Answer Date Recorded Do you feel stress - tense, restless, nervous, or anxious, or unable to sleep at night because your mind is troubled all the time - these days? Not at all 01/09/2025 Exercise Vital Sign Answer Date Recorde d On average, how many days pe r week do you engage in moderate to strenuous exercise (like a brisk walk)? 4 days 01/09/2025 On average, how many minutes do you engage in exercise at this level? 30 min 01/09/2025 Hunger Vital Sign Answer Date Recorded Within the past 12 months, y ou worried that your food would run out before you got the money to buy more. Never true 01/10/20 25 Within the past 12 months, t he food you bought just didn't last and you didn't have money to get more. Never true 01/09/2025 PRAPARE - Transportation Answer Date Re corded In the past 12 months, has l ack of transportation kept you from medical appointments or from getting medications? No 12/17 In the past 12 months, has l ack of transportation kept you from meetings, work, or from getting things needed for daily living? No 01/09/2025 Housing Stability Vital Sign Answer Cosme e [...] place to sleep or slept in a fpc (including now)? No 01/11/2024 Housing Stability Vital Sign Answer Cosme e Recorded In the last 12 months, was t here a time when you were not able to pay the mortgage or rent on time? No 01/09/2025 In the past 12 months, how m any times have you moved where you were living? 0 01/09/2025 At any time in the past 12 m [facility], were you homeless or living in a fpc (including now)? No 01/09/2025 Sexually Active Control Partners Comments Not Currently Comments No Sex and Gender Information Value Date Recorded Sex Assigned at Not on file Legal Sex Female 7:34 PM CDT Gender Identity Not on file Sexual Orientation Not on file Last Filed Vital Signs Vital Sign Reading Time Taken Comments Blood Pressure 154/58 12/04/2024 12:58 PM 3RD GRADE TEACHER Pulse 77 12/04/2024 12:58 PM 3RD GRADE TEACHER Temperature 36.1 C (97 F) 12/04/2024 12:58 PM 3RD GRADE TEACHER Respiratory Rate 20 12/04/2024 12:5 8 PM 3RD GRADE TEACHER Oxygen Saturation 99% 12/04/2024 12: 58 PM 3RD GRADE TEACHER Inhaled Oxygen Concentration - - Weight 91.9 kg (202 lb 11.2 oz) 025 12:58 PM 3RD GRADE TEACHER Height 162.6 cm (5' 4 ) 12/04/2024 12:5 8 PM 3RD GRADE TEACHER Body Mass Index 34.79 12/04/2024 12:58 PM 3RD GRADE TEACHER Plan of Treatment Upcoming Encounters Date Type Department Care Team (Late st Contact Info) Description 06/07/2025 11:00 AM CDT [facility] Visit [facility] [place] [address] [place] [phone] Artie Flynn MD [address] [place] [address] Health Maintenance Due Date Last Done Comments DEXA Bone Density 1940 Hepatitis C Virus (HCV) Screening 1940 TdaP Immunization 1940 Zoster Immunization (1 of 2) 03/13/2009 01/16/2009 Respiratory Syncytial Virus (RSV) Immunization (Adult) (1 - 1-dose 75+ series) 2015 SARS-COV-2 Immunization (8 - Moderna risk ) 06/03/2025 12/04/2024, 07/16/2023, 07/23/2022, Additional history exists Influenza Immunization Completed , 06/03/2023, 06/17/2022, Additional history exists Pneumococcal Immunization (50+ years) Completed 09/01/2024, 07/26/2015, 07/18/2009 Pneumococcal Immunization Combined Discontinued 09/01/2024, 07/26/2015, 07/18/2009 Hepatitis B Immunization Aged Out No longer eligible based on patient's age to complete this topic Meningococcal Immunization (ACWY) Aged Out No longer eligible based on patient's age to complete this topic Rotavirus Immunization Aged Out No lo nger eligible based on patient's age to complete this topic Goals Goal Patient Goal Type Associated Problems Recent Progress Patient-Stated? Author Careful Skin Care Patient Goals Yes Chichi Gomez RN Note: Follow Up Date 01/18/2025 - clean and dry skin well - use lotion that is suggested by the doctor or nurse - use sunscreen when outdoors - wear a hat when in the sunshine - try not to scratch my skin Why is this important? 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 Taking really good care of your skin will help to keep your skin unbroken. Notes: Follow Treatment Plan Patient Goals Yes Chichi Gomez RN Note: Follow Up Date 01/18/2025 - ask for help if I cannot afford the medicine - call for medicine refill 2 or 3 days before it runs out - call doctor before stopping medicine - call the doctor or nurse to get help with side effects - keep follow-up appointments - keep taking medicine even when I feel good - take medicine as prescribed - wear medical alert identification at all times Why is this important? Following your treatment plan will help keep the disease from getting worse. Medicine is the most important piece of your plan. There are many reasons why you might want to stop taking medicine. You may get tired of taking your medicine. You may think medicine costs too much money. You may find the side effects are too much to bear. Try some of these steps to make following the treatment plan a little easier. Notes: Activity and Exercise Increased Care Plan Activity and Exercise (Wellness) Chichi Kasper, RN Note: Evidence-based guidance: Review current exercise levels. Assess patient perspective on exercise or activity level, barriers to increasing activity, motivation and readiness for change. Recommend or set healthy exercise goal based on individual tolerance. Encourage small steps toward making change in amount of exercise or activity. Urge reduction of sedentary activities or screen time. Promote group activities within the community or with family or support person. Consider referral to rehabiliation therapist for assessment and exercise/activity plan. Notes: Additional Health Concerns Active Problems Noted Date Diagnosed Date Activity and Exercise (Wellness) 01/09/[address] [place] [address] [place] [phone] [facility] * Guarantor: [facility] Account Type Relation to Patient Date of Phone Billing Address Institutional Other [address] [place] [phone] Advance Directives Documents on File Type Date Recorded Patient Hearing Dog Trainer Expl anation POLST/POST/[place] DNR 06/30/2024 10:37 AM POLS T, 06/30/2024 Power of Clearing Inspector for Health Care 01/11/2024 12:13 PM POWER OF FURNACE KEEPER FO R HEALTH CARE Living Will 01/11/2024 12:11 PM [place]IVING [place] * No CPR-Comfort Focused Treatment (Latest Code Status on File) Date Activated Date Inactivated Comments 09/10/2024 3:09 AM * No CPR-Selective Treatment Date Activated Date Inactivated Comments 08/31/2024 7:49 AM 09/10/2024 3:09 AM * No CPR-Selective Treatment Date Activated Date Inactivated Comments 07/03/2024 7:36 PM 08/31/2024 7:49 AM No CPR - Se lective Treatment: FULL ARREST: Do Not Attempt Resuscitation. PRE-ARREST: DO NOT USE INTUBATION OR MECHANICAL VENTILATION, but may use basic medical treatment like CPAP or BiPAP, antibiotics, IV fluids, oxygen, etc. Avoid care in ICU setting. Question Answer Comments Physician documentation made in notes? Yes * No CPR-Comfort Focused Treatment Date Activated Date Inactivated Comments 06/30/2024 9:59 AM 07/03/2024 2:34 PM No CPR - Com fort-Focused Treatment: FULL ARREST: Do Not Attempt Resuscitation. PRE-ARREST: Goal is to maximize comfort through symptom management and allow for a natural . Hospitalization is not preferred unless comfort can't be established elsewhere. Question Answer Comments Physician documentation made in notes? Yes * No CPR-Comfort Focused Treatment Date Activated Date Inactivated Comments 06/30/2024 6:57 AM 06/30/2024 9:59 AM No CPR - Com fort-Focused Treatment: FULL ARREST: Do Not Attempt Resuscitation. PRE-ARREST: Goal is to maximize comfort through symptom management and allow for a natural . Hospitalization is not preferred unless comfort can't be established elsewhere. Question Answer Comments Physician documentation made in notes? Yes Healthcare Agents on File Name Relationship Healthcare Agent [facility] Communication [facility] Healthcare POA Care Teams Harness Tier Relationship Specialty Start Date End Date Artie Flynn MD [address] [place] [address] PCP - General Internal Medicine 12/04/24 Jasmin Kyle MD [address] [place] [id number] Consulting Physician Dermatology 12/04/24 Chichi Gomez RN [place] Nurse Bottom Filler 01/01/25
--- OUTSIDE RECORDS SUMMARY | 2025-01-12 12:06 | XMS_ITS | Encounter Summary ---
Author Organization [facility] Address [address] [place] [address] Phone Care Team Providers Care Hard Metals Hand Engraver Name Role Phone Rob Mendoza MD Primary Care Provider Chichi Gomez RN Unavailable Unavailable Phan Gómez MD Unavailable [phone] Teresa Ch MD Primary Care Provider [phone] Jasmin Kyle MD Unavailable [phone] Artie Flynn MD Primary Care Provider [phone] Chichi Gomez RN Unavailable Unavailable Reason for Visit * Reason Comments Medication Refill Encounter Details Date Type Department Care Team (Late st Contact Info) Description 08/05/2020 Refill [facility] [address] [place], [place] [phone] Rob Mendoza MD [address] [address] Medication Refill Social History Tobacco Use Types Packs/Day Years Used Date Smoking Tobacco: Former Cigarettes Q uit: 02/28/2014 Smokeless Tobacco: Never Alcohol Use Standard Drinks/Week Comments No 0 (1 standard drink = 0.6 oz pur e alcohol) PHQ-2 Answer Date Recorded Total Score - Questions 1-9 0 02/2020 Comments No Sex and Gender Information Value Date Recorded Sex Assigned at Not on file Legal Sex Female 7:34 PM CDT Gender Identity Not on file Sexual Orientation Not on file COVID-19 Exposure Response Date Recorded In the last month, have you been in contact with someone who was confirmed or suspected to have Coronavirus / COVID-19? No / Unsure 07/22/2020 7:40 AM CDT documented as of this encounter Miscellaneous Notes * Telephone Encounter - Rob Mendoza MD - 08/06/2020 9:10 AM CDT Prescription approved. Please call in documented in this encounter Plan of Treatment Upcoming Encounters Date Type Department Care Team (Late st Contact Info) Description 06/07/2025 11:00 AM CDT Office Visit [facility] - [facility] - [place] [address] [place] [address] Artie Flynn MD [address] [place] [address] documented as of this encounter Visit Diagnoses Not on filedocumented in this encounter Additional Health Concerns Assessment Noted Time PHQ-9 Depression Total Score: 0 07/22/20 8:40 AM CDT documented as of this encounter Care Teams Hard Metals Hand Engraver Relationship Specialty Start Date End Date Rob Mendoza MD [address] [address] PCP - General Family Medicine 09/30/18 08/31/24 Phan Gómez MD [address] [place] [address] PCP - Hospice Attending Provider 06/30/24 07/03/24 Teresa Ch MD [address] [place] [address] PCP - General Family Medicine 09/01/24 12/03/24 Artie Flynn MD [address] [place] [address] PCP - General Internal Medicine 12/04/24 Chichi Gomez RN [place] Nurse Sack Cleaner 01/05/24 07/03/24 [place] [address] [place] [address] Consulting Physician Dermatology 12/04/24 Chichi Gomez RN [place] Nurse Sack Cleaner 01/01/25 documented as of this encounter
--- OUTSIDE RECORDS SUMMARY | 2025-01-12 12:06 | XMS_ITS | Encounter Summary ---
Author Organization [facility] Address [address] [facility] [place] [address] Phone Care Team Providers Care Well Treatment Offsider Name Role Phone Rob Mendoaz MD Primary Care Provider [phone] Teresa Ch MD Primary Care Provider [phone] Jasmin Kyle MD Unavailable [phone] Artie Flynn MD Primary Care Provider [phone] Chichi Gomez RN Unavailable Unavailable Encounter Details Date Type Department Care Team (Late st Contact Info) Description 07/10/2024 Nursing Facility [facility] [address] [place] [address] Chris Chau, PAC [address] [place], [place] [id number] Social History Tobacco Use Types Packs/Day Years Used Date Smoking Tobacco: Former Cigarettes Q uit: 02/28/2014 Smokeless Tobacco: Never Alcohol Use Standard Drinks/Week Comments No 0 (1 standard drink = 0.6 oz pur e alcohol) [facility] Utilities Answer Date Recorded In the past 12 months has [employer], gas, oil, or water company threatened to [...] declined 06/30/2024 How often do you attend hinduism or hoahaoism serv ices? Patient declined 06/30/2024 Do you belong to any clubs o r organizations such as hinduism groups, unions, fraternal or athletic groups, or [...] Total Score - Questions 1-9 0 12/17 [facility] of Occupat ional [facility] - Occupational Stress Questionnaire Answer Date [...] place to sleep or slept in a long term (including now)? No 01/11/2024 Housing Stability Vital [...] time in the past 12 m [facility], were you homeless or living in a long term (including now)? Patient declined 06/30/2024 Sexually Active Control Partners Comments Not Currently Comments No Sex and Gender Information Value Date Recorded Sex Assigned at Not on file Legal Sex Female 7:34 PM CDT Gender Identity Not on file Sexual Orientation Not on file documented as of this encounter Progress Notes * Chris Chau, PAC - 07/10/2024 12:09 PM CDT ALFREDO JERRY [facility] PROGRESS NOTE Nichelle Hunt is a 84 y.o. female at [facility] Nursing facility for rehabilitation. Subjective: Interval History: I am seeing patient today for a skilled encounter. She is lying comfortably in bed. Says that she is feeling constipated. Has had 1 bowel movement in last 10 days. No nausea or vomiting. Makes note of continued pain around the wound in her right lower extremity. Is made worse with palpation and with therapy and was sitting in her chair. Past Medical History Positives Diagnosis Date Glaucoma [...] Types: Cigarettes Quit date: 02/28/2014 Years since quittin.3 Smokeless tobacco: Never Vaping Use Vaping status: [...] Session: Patient declined Stress: Patient Declined (06/30/2024) [employer] [facility] Occupational Health - Occupational Stress Questionnaire Feeling of Stress : Patient declined Social Integration: Patient Declined (06/30/2024) Social Connection and Isolation Panel [NHANES] Frequency of Communication with Friends and Family: Patient declined Frequency of Social Gatherings with Friends and Family: Patient declined Attends Bahai Services: Patient declined Active Member of Clubs [...] WBC of 3.4,hemoglobin 10.5 otherwise unremarkable. Imaging: None Assessment/Plan: Generalized weakness and deconditioning Receiving long term care and physical therapy rehabilitation Right lower [...] during the day take off at night Constipation Complicated by her current oxycodone use and being less mobile than normal 07/10: Uncontrolled. MiraLax increase to b.i.d. and start her on Colace b.i.d.. Severe bradycardia during hospitalization Was placed on hospice briefly during hospitalization Resolved with IV fluids and resolution of underlying hyperkalemia Monitor vitals 07/10/2024 remains resolved Squamous cell carcinoma left check This is been partially resected She is to follow up dermatology VTE Prophylaxis: Activity I discussed advanced care planning with this patient. This note was dictated using M*Modal fluency dictation system and there may be errors in pile trimmer. Despite proof reading the note, there may be mistakes and I apologize for those. By: BURT Styles, 07/10/2024 12:09 PM CDT documented in this encounter Plan of Treatment Upcoming Encounters Date Type Department Care Team (Late st Contact Info) Description 06/07/2025 11:00 AM CDT Office Visit [facility] - Primary Care - [place] [address] [place] [address] Artie Flynn MD [address] [place] [address] documented as of this encounter Visit Diagnoses Not on filedocumented in this encounter Additional Health Concerns Assessment Noted Time PHQ-9 Depression Total Score: 0 01/11/20 9:52 AM CDT documented as of this encounter Care Teams Well Treatment Offsider Relationship Specialty Start Date End Date Rob Mendoza MD [address] [address] PCP - General Family Medicine 09/30/18 08/31/24 Teresa Ch MD [address] [place] [address] PCP - General Family Medicine 09/01/24 12/03/24 Artie Flynn MD [address] [place] [address] PCP - General Internal Medicine 12/04/24 Jasmin Kyle MD [address] [place] [address] Consulting Physician Dermatology 12/04/24 Chichi Gomez RN [place] Nurse Inbound Ingredient Logistics Specialist 01/01/25 documented as of this encounter
--- OUTSIDE RECORDS SUMMARY | 2025-01-12 12:06 | XMS_ITS | Encounter Summary ---
Author Organization [facility] Address [address] [facility] [place] [address] Phone Care Team Providers Care Mica Miner Name Role Phone Rob Mendoza MD Primary Care Provider [phone] Teresa Ch MD Primary Care Provider [phone] Jasmin Kyle MD Unavailable [phone] Artie Flynn MD Primary Care Provider [phone] Chichi Gomez RN Unavailable Unavailable Encounter Details Date Type Department Care Team (Late st Contact Info) Description 08/02/2024 Nursing Facility [facility] [address] [place] [address] Chris Chau, PAC [address] [place], [place] [id number] Social History Tobacco Use Types Packs/Day Years Used Date Smoking Tobacco: Former Cigarettes Q uit: 02/28/2014 Smokeless Tobacco: Never Alcohol Use Standard Drinks/Week Comments No 0 (1 standard drink = 0.6 oz pur e alcohol) [facility] Utilities Answer Date Recorded In the past 12 months has [employer], gas, oil, or water company threatened to [...] declined 06/30/2024 How often do you attend evangelical or church serv ices? Patient declined 06/30/2024 Do you belong to any clubs o r organizations such as evangelical groups, unions, fraternal or athletic groups, or [...] 1-9 0 12/17 [facility] of Occupat ional [facility] - Occupational Stress Questionnaire Answer Date [...] place to sleep or slept in a retirement (including now)? No 01/11/2024 Housing Stability Vital [...] any time in the past 12 m [facility], were you homeless or living in a retirement (including now)? Patient declined 06/30/2024 Sexually Active Control Partners Comments Not Currently Comments No Sex and Gender Information Value Date Recorded Sex Assigned at Not on file Legal Sex Female 7:34 PM CDT Gender Identity Not on file Sexual Orientation Not on file documented as of this encounter Progress Notes * Chris Chau, PAC - 08/02/2024 3:00 PM CDT ALFREDO JERRY [facility] INTERMEDIATE PROGRESS NOTE Nichelle Hunt is a 84 y.o. female at [facility] Nursing [facility] for [facility]. Subjective: Interval History: I am seeing patient today for a skilled encounter. She is lying comfortably in bed. Says she is feeling a little better. Diarrhea resolved a few days ago. Feeling like she is getting her energy back. Admits to a cough. No shortness of breath. No acute concerns. Past Medical History Positives Diagnosis Date Glaucoma [...] Session: Patient declined Stress: Patient Declined (06/30/2024) [place]ic [place] of Occupational Health - Occupational Stress Questionnaire Feeling of Stress : Patient declined Social Integration: Patient Declined (06/30/2024) Social Connection and Isolation Panel [NHANES] Frequency of Communication with Friends and Family: Patient declined Frequency of Social Gatherings with Friends and Family: Patient declined Attends Congregation Services: Patient declined Active Member of Clubs [...] significant stenosis. No flow seen in right PIPE BUFFER, right SFA, right popliteal and both WASHCOAT WIPER, possibility of their complete occlusion cannot be excluded. CT angiogram is advised for further evaluation. . Interpreting Radiology Company: [employer] . Interpreting Doctor: Lita Ortiz MD . [...] saturations very closely. 08/02: Symptoms are improving. 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 This note was dictated using M*Modal fluency dictation system and there may be errors in water resource engineer. Despite proof reading the note, there may be mistakes and I apologize for those. By: BURT Styles, 08/02/2024 3:00 PM CDT documented in this encounter Plan of Treatment Upcoming Encounters Date Type Department Care Team (Late st Contact Info) Description 06/07/2025 11:00 AM CDT Office Visit [facility] - Primary Care - [place] [address] [place] [address] Artie Flynn MD [address] [place] [address] documented as of this encounter Visit Diagnoses Not on filedocumented in this encounter Additional Health Concerns Assessment Noted Time PHQ-9 Depression Total Score: 0 01/11/20 9:52 AM CDT documented as of this encounter Care Teams Mica Miner Relationship Specialty Start Date End Date Rob Mendoza MD #[address] [address] PCP - General Family Medicine 09/30/18 08/31/24 Teresa Ch MD [address] [place] [address] PCP - General Family Medicine 09/01/24 12/03/24 Artie Flynn MD [address] [place] [address] PCP - General Internal Medicine 12/04/24 [place] [address] [place] [address] Consulting Physician Dermatology 12/04/24 Chichi Gomez, RN [place] Nurse Dye Maker 01/01/25 documented as of this encounter
--- OUTSIDE RECORDS SUMMARY | 2025-01-12 12:06 | XMS_ITS | Encounter Summary ---
Author Organization [facility] Address [address] [place] [address] Phone Care Team Providers Care Awning Installer Name Role Phone Rob Mendoza MD Primary Care Provider [phone] Teresa Ch MD Primary Care Provider [phone] Jasmin Kyle MD Unavailable [phone] Artie Flynn MD Primary Care Provider [phone] Chichi Gomez RN Unavailable Unavailable Encounter Details Date Type Department Care Team (Late st Contact Info) Description 08/17/2024 Nursing [facility] [address] [place] [address] Chris Chau, PAC [address] [place], [place] [phone] Social History Tobacco Use Types Packs/Day Years Used Date Smoking Tobacco: Former Cigarettes Q uit: 02/28/2014 Smokeless Tobacco: Never Alcohol Use Standard Drinks/Week Comments No 0 (1 standard drink = 0.6 oz pur e alcohol) [facility] Utilities Answer Date Recorded In the past 12 months has [employer], gas, oil, or water company threatened to [...] declined 06/30/2024 How often do you attend oriental orthodox or mandaen serv ices? Patient declined 06/30/2024 Do you belong to any clubs o r organizations such as oriental orthodox groups, unions, fraternal or athletic groups, or [...] Total Score - Questions 1-9 0 12/17 [facility] of Occupat ional [facility] - Occupational Stress Questionnaire Answer Date Recorded [...] place to sleep or slept in a mcc (including now)? No 01/11/2024 Housing Stability Vital [...] any time in the past 12 m [facility], were you homeless or living in a mcc (including now)? Patient declined 06/30/2024 Sexually Active Control Partners Comments Not Currently Comments No Sex and Gender Information Value Date Recorded Sex Assigned at Not on file Legal Sex Female 7:34 PM CDT Gender Identity Not on file Sexual Orientation Not on file documented as of this encounter Progress Notes * Chris Chau, PAC - 08/17/2024 1:07 PM CDT ALFREDO JERRY [facility] ASSISTED PROGRESS NOTE Nichelle Hunt is a 84 y.o. female at [facility] Nursing [facility] for rehabilitation. Subjective: Interval History: I am seeing patient today for a skilled encounter. She is sitting up comfortably in her chair. Says she is feeling ???good?? . Denies any shortness of breath. She has no acute concerns at this time. Feels like she is getting her strength back. Past Medical History Positives Diagnosis Date Glaucoma [...] Session: Patient declined Stress: Patient Declined (06/30/2024) [place] of Occupational Health - Occupational Stress Questionnaire Feeling of Stress : Patient declined Social Integration: Patient Declined (06/30/2024) Social Connection and Isolation Panel [NHANES] Frequency of Communication with Friends and Family: Patient declined Frequency of Social Gatherings with Friends and Family: Patient declined Attends Spiritism Services: Patient declined Active Member of Clubs [...] hemoglobin 10.6, platelet count 81 otherwise unremarkable. 07/20/2024: BMP with sodium 146, BUN 31 otherwise unremarkable. CBC with WBC of 4.3, hemoglobin 10.8, platelet count 98 otherwise unremarkable Imaging: Arterial Doppler results from 07/14/2024: IMPRESSION: . 1. Atherosclerotic changes in visualized bilateral lower limb arteries with multifocal calcified and soft plaques. 2. Monophasic waveform in right distal SFA and both DPA favoring severe peripheral arterial diseasewith possibility of hemodynamic significant stenosis. No flow seen in right CALCULATION REVIEWER, right SFA, right popliteal and both ELECTROCARDIOGRAPH REPAIRER, possibility of their complete occlusion cannot be excluded. CT angiogram is advised for further evaluation. . Interpreting Radiology Company: [employer] . Interpreting Doctor: Lita Ortiz MD . Electronically Signed By: Lita Ortiz MD . Signed Date: Physician electronically signed on - 07/14/2024 09:22:35 PM 08/07/2024 Chest x-ray IMPRESSION: . Findings suggestive of worsened CHF more more focal airspace changes in the left lower lobe retrocardiac region with unchanged opacity in the right mid lung. Assessment/Plan: Chronic systolic congestive heart failure 08/10: Decompensated earlier this week. I restarted her Bumex which she had been on prior to her hospitalization. She is doing better today. body weight and kidney function needs to be monitored closely while on the Bumex considering during her hospitalization she had severe MILDRED. 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 This note was dictated using M*Modal fluency dictation system and there may be errors in pack worker. Despite proof reading the note, there may be mistakes and I apologize for those. By: Chris Chau, PAC, 08/17/2024 1:08 PM CDT documented in this encounter Plan of Treatment Upcoming Encounters Date Type Department Care Team (Late st Contact Info) Description 06/07/2025 11:00 AM CDT Office Visit [facility] - Primary Care - [place] [address] [place] [address] Artie Flynn MD [address] [place] [address] documented as of this encounter Visit Diagnoses Not on filedocumented in this encounter Additional Health Concerns Assessment Noted Time PHQ-9 Depression Total Score: 0 01/11/20 9:52 AM CDT documented as of this encounter Care Teams Awning Installer Relationship Specialty Start Date End Date Rob Mendoza MD #[address] [address] PCP - General Family Medicine 09/30/18 08/31/24 Teresa Ch MD [address] [place] [address] PCP - General Family Medicine 09/01/24 12/03/24 Artie Flynn MD [address] [place] [address] PCP - General Internal Medicine 12/04/24 [place] [address] [place] [address] Consulting Physician Dermatology 12/04/24 Chichi Gomez, RN [place] Nurse Reconciliation Machine Operator 01/01/25 documented as of this encounter
--- OUTSIDE RECORDS SUMMARY | 2025-01-12 12:06 | XMS_ITS | Encounter Summary ---
Author Organization [facility] Address [address] [place] [address] Phone Care Team Providers Care Statistician Theoretical Name Role Phone Rob Mendoza MD Primary Care Provider Chichi Gomez RN Unavailable Unavailable Phan Gómez MD Unavailable Teresa Ch MD Primary Care Provider [phone] Jasmin Kyle MD Unavailable [phone] Artie Flynn MD Primary Care Provider [phone] Chichi Gomez RN Unavailable Unavailable Reason for Visit * Reason Comments Medication Refill Encounter Details Date Type Department Care Team (Late st Contact Info) Description 08/12/2020 Refill [facility] [address] [place], [place] [phone] Rob Mendoza MD #[address] [address] Medication Refill Social History Tobacco Use Types [...] Telephone Encounter - Rob Mendoza MD - 08/14/2020 3:12 PM CDT Prescription approved. Please call in * Telephone Encounter - Chaya Ribera RN - 08/14/2020 3:11 PM CDT Medication failed the protocol, provider to review and approve the medication order. Requested Prescriptions Pending Prescriptions Disp Refills clopidogrel (PLAVIX) 75 MG Tablet [Pharmacy Med Name: CLOPIDOGREL BISULFATE TABS 75MG] 90 Tab 3 Sig: TAKE 1 TABLET DAILY Cardiovascular: Antiplatelets Passed - 08/14/2020 3:11 PM Passed - Valid encounter within last 12 months Past Office Visits Recent Outpatient Visits 3 weeks ago CAD S/P percutaneous coronary angioplasty [facility] Rob Hernandez MD 6 months ago CAD S/P percutaneous coronary angioplasty [facility] Rob Hernandez MD 1 year ago CAD S/P percutaneous coronary angioplasty [facility] Rob Hernandez MD 1 year ago Essential hypertension [facility] Rob Hernandez MD 1 year ago Essential hypertension [facility] Criss Germain PAC Upcoming Appointments Future Appointments In 5 months Lab, [facility], [facility] In 5 months Rob Mendoza MD [facility] PHYS[facility] CHEMIST - Recent and Past Visits Recent Visits Date Type Provider Dept 07/22/20 Office Visit Rob Mendoza MD [facility] 01/18/20 Telemedicine Rob Mendoza MD [facility] 07/19/19 Office Visit Rob Mendoza MD [facility] Showing recent visits within past 460 days with a meds authorizing provider and meeting all other requirements Future Appointments No visits were found meeting these conditions. Showing future appointments within next 90 days with a meds authorizing provider and meeting all other requirements 5 months ago (02/15/2020) clopidogrel (PLAVIX) 75 MG Tablet TAKE 1 TABLET DAILY Dispense: 90 Tab? Refills: 1? Start: 02/15/2020? Routing to provider for review and approval. documented in this encounter Plan of Treatment Upcoming Encounters Date Type Department Care Team (Late st Contact Info) Description 06/07/2025 11:00 AM CDT Office Visit [facility] - Primary Care - [place] [address] [place] [address] Artie Flynn MD [address] [place] [address] documented as of this encounter Visit Diagnoses Not on filedocumented in this encounter Additional Health Concerns Assessment Noted Time PHQ-9 Depression Total Score: 0 07/22/20 20 8:40 AM CDT documented as of this encounter Care Teams Statistician Theoretical Relationship Specialty Start Date End Date Rob Mendoza MD #[address] [address] PCP - General Family Medicine 09/30/18 08/31/24 Phan Gómez MD [address] [place] [address] PCP - Hospice Attending Provider 06/30/24 07/03/24 Teresa Ch MD [address] [place] [address] PCP - General Family Medicine 09/01/24 12/03/24 Artie Flynn MD [address] [place] [address] PCP - General Internal Medicine 12/04/24 Chichi Gomez, RN [place] Nurse Tool Clerk 01/05/24 07/03/24 Jasmin Kyle MD [address] [place] [address] Consulting Physician Dermatology 12/04/24 Chichi Gomez, RN [place] Nurse Tool Clerk 01/01/25 documented as of this encounter
--- OUTSIDE RECORDS SUMMARY | 2025-01-12 12:06 | XMS_ITS ---
Care Plan Created on: January 12, 2025 Nichelle Hunt : 1940 Sex: Female Author Organization [facility] Address [address], [address] [address] Phone Care Team Providers Care Preparing Box Tender Name Role Phone Jasmin Kyle MD Unavailable [phone] Artie Flynn MD Primary Care Provider [phone] Chichi Gomez RN Unavailable Unavailable Active Problems Problem Noted Date Diagnosed Date [...] care patient 06/30/2024 025 Prediabetes 02/09/2017 12/04/2024 Additional Health Concerns Active Problems Noted Date Diagnosed Date Activity and Exercise (Wellness) 01/09/2025 Goals Goal Patient Goal Type Associated Problems Recent Progress Patient-Stated? Author Careful Skin Care Patient Goals Yes Chichi Gomez, RN Note: Follow Up Date 01/18/2025 - [...] Follow Treatment Plan Patient Goals Yes Chichi Gomez, RN Note: Follow Up Date 01/18/2025 - [...] Increased Care Plan Activity and Exercise (Wellness) No Chichi Gomez, RN Note: Evidence-based guidance: Review current exercise [...] therapist for assessment and exercise/activity plan. Notes: Interventions Care Plan Interventions Intervention Entry Date Outcome Alleviate Barriers to Increasing Activity Level 01/09/2025 Note:Care Management Activities: t- exercise goal set - incremental change encouraged - motivation and readiness to change monitored - patient perspective on increasing exercises elicited - praise for success provided - reduction in sedentary behavior encouraged - strategies to removing barriers to physical activity or exercise promoted - support and encouragement provided Notes: Related Goals and Interventions Goal Associated Intervent ions Activity and Exercise Increased Alleviat e Barriers to Increasing Activity Level
--- OUTSIDE RECORDS SUMMARY | 2025-01-12 12:06 | XMS_ITS | Encounter Summary ---
Author Organization [facility] Address [address] [place] [address] Phone Care Team Providers Care Insecticide Sprayer Name Role Phone Rob Mendoza MD Primary Care Provider Chichi Gomez RN Unavailable Unavailable Phan Gómez MD Unavailable Teresa Ch MD Primary Care Provider [phone] Jasmin Kyle MD Unavailable [phone] Artie Flynn MD Primary Care Provider Chichi Gomez RN Unavailable Unavailable Encounter Details Date Type Department Care Team (Late st Contact Info) Description 09/02/2023 Telephone [facility] [address] [place] [address] Rob Mendoza MD #[address] [address] Social History Tobacco Use Types Packs/Day Years Used Date Smoking Tobacco: Former Cigarettes Q uit: 02/28/2014 Smokeless Tobacco: Never Alcohol Use Standard Drinks/Week Comments No 0 (1 standard drink = 0.6 oz pur e alcohol) PHQ-2 Answer Date Recorded Total Score - Questions 1-9 0 02/2020 Sexually Active Control Partners Comments Not Currently Comments No Sex and Gender Information Value Date Recorded Sex Assigned at Not on file Legal Sex Female 7:34 PM CDT Gender Identity Not on file Sexual Orientation Not on file documented as of this encounter Plan of Treatment Upcoming Encounters Date Type Department Care Team (Late st Contact Info) Description 06/07/2025 11:00 AM CDT [facility] - Primary Care - [place] [address] [place] [id number] Artie Flynn MD [address] [place] [address] documented as of this encounter Visit Diagnoses Not on filedocumented in this encounter Additional Health Concerns Assessment Noted Time PHQ-9 Depression Total Score: 0 07/22/20 8:40 AM CDT documented as of this encounter Care Teams Insecticide Sprayer Relationship Specialty Start Date End Date Rob Mendoza MD #[address] [address] PCP - General Family Medicine 09/30/18 08/31/24 Phan Gómez MD [address] [place] [address] PCP - Hospice Attending Provider 06/30/24 07/03/24 Teresa Ch MD [address] [place] [address] PCP - General Family Medicine 09/01/24 12/03/24 Artie Flynn MD [address] [place] [address] PCP - General Internal Medicine 12/04/24 Chichi Gomez, RN [place] Nurse Reconciliation Clerk 01/05/24 07/03/24 [place] [address] [place] [address] Consulting Physician Dermatology 12/04/24 Chichi Gomez RN [place] Nurse Reconciliation Clerk 01/01/25 documented as of this encounter
--- OUTSIDE RECORDS SUMMARY | 2025-01-12 12:06 | XMS_ITS | Encounter Summary ---
Author Organization [facility] Address [address] [place] [address] Phone Care Team Providers Care Parcel Post Truck Driver Name Role Phone Rob Mendoza MD Primary Care Provider Chichi Gomez RN Unavailable Unavailable Phan Gómez MD Unavailable [phone] Teresa Ch MD Primary Care Provider [phone] Jasmin Kyle MD Unavailable [phone] Artie Flynn MD Primary Care Provider [phone] Chichi Gomez RN Unavailable Unavailable Reason for Visit * Reason Comments Medication Refill Encounter Details Date Type Department Care Team (Late st Contact Info) Description 07/16/2020 [facility]ill [facility] [address] [place] [address] Rob Mendoza MD #[address] [address] Medication Refill Social History Tobacco Use Types [...] have Coronavirus / COVID-19? No / Unsure 07/15/2020 7:52 AM CDT documented as of this encounter Miscellaneous Notes * Telephone Encounter - Rob Mendoza MD - 07/17/2020 11:17 AM CDT Prescription approved. Please call in documented in this encounter Plan of Treatment Upcoming Encounters Date Type Department Care Team (Late st Contact Info) Description 06/07/2025 11:00 AM CDT Office Visit [facility] - Primary Care - Veena [address] [place] [address] Artie Flynn MD [address] [place] [address] documented as of this encounter Visit Diagnoses Not on filedocumented in this encounter Additional Health Concerns Assessment Noted Time PHQ-9 Depression Total Score: 0 01/24/20 19 10:00 AM CDT documented as of this encounter Care Teams Parcel Post Truck Driver Relationship Specialty Start Date End Date Rob Mendoza MD #[address] [address] PCP - General Family Medicine 09/30/18 08/31/24 Phan Gómez MD [address] [place] [address] PCP - Hospice Attending Provider 06/30/24 07/03/24 Teresa Ch MD [address] [place] [address] PCP - General Family Medicine 09/01/24 12/03/24 Artie Flynn MD [address] [place] [address] PCP - General Internal Medicine 12/04/24 Chichi Gomez RN [place] Nurse Hasher Operator 01/05/24 07/03/24 Jasmin Kyle MD [address] [place] [address] Consulting Physician Dermatology 12/04/24 Chichi Gomez RN [place] Nurse Hasher Operator 01/01/25 documented as of this encounter
--- OUTSIDE RECORDS SUMMARY | 2025-01-12 12:06 | XMS_ITS | Encounter Summary ---
Author Organization [facility] Address [address] [facility] [place] [address] Phone Care Team Providers Care Shotgun Shell Assembly Machine Operator Name Role Phone Rob Mendoza MD Primary Care Provider [phone] Teresa Ch MD Primary Care Provider [phone] Jasmin Kyle MD Unavailable [phone] Artie Flynn MD Primary Care Provider [phone] Chichi Gomez RN Unavailable Unavailable Encounter Details Date Type Department Care Team (Late st Contact Info) Description 08/25/2024 Nursing Facility [facility] [address] [place] [address] La Castillo, GRAPHICS PRODUCTION SPECIALIST, PLANT PROTECTION SUPERINTENDENT [address] [place] [address] Social History Tobacco Use Types Packs/Day Years Used Date Smoking Tobacco: Former Cigarettes Q uit: 02/28/2014 Smokeless Tobacco: Never Alcohol Use Standard Drinks/Week Comments No 0 (1 standard drink = 0.6 oz pur e alcohol) [facility] Utilities Answer Date Recorded In the past 12 months has [employer], gas, oil, or water [employer] threatened to shut off services in your home? Patient declined 06/30/2024 Social Connection and Isolation Panel [NHANES] A nswer Date Recorded In a typical week, how many times do you talk on the phone with family, friends, or neighbors? Patient declined 06/30/2024 How often do you get togethe r with friends or relatives? Patient declined 06/30/2024 How often do you attend congregation or baptism serv ices? Patient declined 06/30/2024 Do you belong to any clubs o r organizations such as congregation groups, unions, fraternal or athletic groups, or [...] Total Score - Questions 1-9 0 12/17 [facility] - Occupational Stress Questionnaire Answer Date Recorded [...] place to sleep or slept in a longterm (including now)? No 01/11/2024 Housing Stability Vital [...] any time in the past 12 m [facility], were you homeless or living in a longterm (including now)? Patient declined 06/30/2024 Sexually Active [...] Description 06/07/2025 11:00 AM CDT Office Visit [facility] - Primary Care - [place] [address] [place] [phone] Artie Flynn MD [address] [place] [address] documented as of this encounter Visit Diagnoses Not on filedocumented in this encounter Additional Health Concerns Assessment Noted Time PHQ-9 Depression Total Score: 0 01/11/20 24 9:52 AM CDT documented as of this encounter Care Teams Shotgun Shell Assembly Machine Operator Relationship Specialty Start Date End Date Rob Mendoza MD #[address] [address] PCP - General Family Medicine 09/30/18 08/31/24 Teresa Ch MD [address] [place] [address] PCP - General Family Medicine 09/01/24 12/03/24 Artie Flynn MD [address] [place] [address] PCP - General Internal Medicine 12/04/24 [place] [address] [place] [address] Consulting Physician Dermatology 12/04/24 Chichi Gomez, RN [place] Nurse Prescription Benefit Specialist 01/01/25 documented as of this encounter
--- OUTSIDE RECORDS SUMMARY | 2025-01-12 12:06 | XMS_ITS ---
Author Organization [facility] Address [address], [address] [address] Phone Care Team Providers Care Dry Cleaner Helper Name Role Phone Jasmin Kyle MD Unavailable Artie Flynn MD Primary Care Provider [phone] Chichi Gomez RN Unavailable Unavailable Ambulatory Complex Care Management Status:Enrolled (Active) Start date:01/01/2025 Enrollment date:01/09/2025 Enrollment reason:Identified as high-risk Current support & services provided:RN Care Managed Related social drivers of health:Social Connections, Tobacco Use, Physical Activity Overview Complex Care Management Program Case Team Name Relationship Phone Chichi Gomez RN Nurse Cosmetologist(Responsible Staff) Continued Care and Services Coordination
--- OUTSIDE RECORDS SUMMARY | 2025-01-12 12:06 | XMS_ITS | Encounter Summary ---
Author Organization [facility] Address [address] [place] [place] [address] Phone Care Team Providers Care Poising Inspector Name Role Phone Rob Mendoza MD Primary Care Provider [phone] Teresa Ch MD Primary Care Provider [phone] Jasmin Kyle MD Unavailable [phone] Artie Flynn MD Primary Care Provider [phone] Chichi Gomez RN Unavailable Unavailable Encounter Details Date Type Department Care Team (Late st Contact Info) Description 08/21/2024 Nursing [facility] [address] [place] [address] La Castillo, PONY CYLINDER PRESS OPERATOR, SHEET ROCK LAYER [address] [place] [address] Social History Tobacco Use Types Packs/Day Years Used Date Smoking Tobacco: Former Cigarettes Q uit: 02/28/2014 Smokeless Tobacco: Never Alcohol Use Standard Drinks/Week Comments No 0 (1 standard drink = 0.6 oz pur e alcohol) [facility] Utilities Answer Date Recorded In the past 12 months has [employer], gas, oil, or water [employer] threatened to shut off services in your home? Patient declined 06/30/2024 Social Connection and Isolation Panel [NHANES] A nswer Date Recorded In a typical week, how many times do you talk on the phone with family, friends, or neighbors? Patient declined 06/30/2024 How often do you get togethe r with friends or relatives? Patient declined 06/30/2024 How often do you attend scientologist or moravian serv ices? Patient declined 06/30/2024 Do you belong to any clubs o r organizations such as scientologist groups, unions, fraternal or athletic groups, or [...] Score - Questions 1-9 0 12/17 [facility] - Occupational Stress Questionnaire Answer [...] health care facility (including now)? No 01/11/2024 Housing Stability Vital [...] any time in the past 12 m [facility], were you homeless or living in a [place] health care facility (including now)? Patient declined 06/30/2024 Sexually Active [...] Description 06/07/2025 11:00 AM CDT Office Visit [facility] - Primary Care - [place] [address] [place] [phone] Artie Flynn MD [address] [place] [address] documented as of this encounter Visit Diagnoses Not on filedocumented in this encounter Additional Health Concerns Assessment Noted Time PHQ-9 Depression Total Score: 0 01/11/20 24 9:52 AM CDT documented as of this encounter Care Teams Poising Inspector Relationship Specialty Start Date End Date Rob Mendoza MD #[address] [address] PCP - General Family Medicine 09/30/18 08/31/24 Teresa Ch MD [address] [place] [address] PCP - General Family Medicine 09/01/24 12/03/24 Artie Flynn MD [address] [place] [address] PCP - General Internal Medicine 12/04/24 [place] [address] [place] [address] Consulting Physician Dermatology 12/04/24 Chichi Gomez, RN [place] Nurse Comfort Station Supervisor 01/01/25 documented as of this encounter
--- OUTSIDE RECORDS SUMMARY | 2025-01-12 12:06 | XMS_ITS | Continuity of Care Document ---
Author Organization [facility] Address [address] [place] [address] [place] [address] Phone Care Team Providers Care Guidance And Control System Engineer Name Role Phone Emmy Oliva MD Unavailable Unavailable Advance Directives Directive Yes / No Effective Date File Name No Information Encounters Encounter Description Practice Location Reason(s) For Visit Diagnoses Date Provider Providers Copied on Encounter [facility], [address] [place] [address] [address], [place], [place], [id number], [place] tel:[phone] [facility] Professional No Information Sep-2 0-200 [address] [facility] [place], [address], [place]. tel:[phone] Referring Provider: Maria Dolores Rivas, [address] [place] [address], [address]. tel:[phone] Family History Family Member Type Diagnosis Age At Onset No Information Payers Payer name Insurance type Covered libertarian ID Authoriza tion(s) Medicare [facility] [id number] [facility] CI [id number] Social History Type Description Quantity Date Captured Comments Sex Female Smoking Status No Information Chief Complaint And Reason For Visit No Information Reason For Referral Reason For Referral No Information History Of Present Illness Encounter Date Complaint History Of Prese nt Illness No Information Functional Status Date Functional Assessmen t No Information Instructions Date Instruction Additional Infor mation No Information Assessments Type Assessment Date No Information Patient Care Teams Name Effective Dates (start - stop) Status Members No Information
--- OUTSIDE RECORDS SUMMARY | 2025-01-12 12:06 | XMS_ITS | Encounter Summary ---
Author Organization [facility] Address [address] [facility] [place] [address] Phone Care Team Providers Care Demurrage Agent Name Role Phone Rob Mendoza MD Primary Care Provider [phone] Teresa Ch MD Primary Care Provider [phone] Jasmin Kyle MD Unavailable [phone] Artie Flynn MD Primary Care Provider [phone] Chichi Gomez RN Unavailable Unavailable Encounter Details Date Type Department Care Team (Late st Contact Info) Description 07/07/2024 Nursing Facility [facility] [address] [place] [address] Elvia Banks MD [address] [place] [address] Social History Tobacco Use Types Packs/Day Years Used Date Smoking Tobacco: Former Cigarettes Q uit: 02/28/2014 Smokeless Tobacco: Never Alcohol Use Standard Drinks/Week Comments No 0 (1 standard drink = 0.6 oz pur e alcohol) [facility] Utilities Answer Date Recorded In the past 12 months has [employer], gas, oil, or water company threatened to [...] often do you attend oriental orthodox or samaritan serv ices? Patient declined 06/30/2024 Do you [...] Total Score - Questions 1-9 0 12/17 [facility] - Occupational Stress Questionnaire Answer Date [...] any time in the past 12 m [facility], were you homeless or living in a [...] 06/07/2025 11:00 AM CDT Office Visit [facility] - Primary Care - [place] [address] [place] [phone] Artie Flynn MD [address] [place] [address] documented as of this encounter Visit Diagnoses Not on filedocumented in this encounter Additional Health Concerns Assessment Noted Time PHQ-9 Depression Total Score: 0 01/11/20 24 9:52 AM CDT documented as of this encounter Care Teams Demurrage Agent Relationship Specialty Start Date End Date Rob Mendoza MD #[address] [address] PCP - General Family Medicine 09/30/18 08/31/24 Teresa Ch MD [address] [place] [address] PCP - General Family Medicine 09/01/24 12/03/24 Artie Flynn MD [address] [place] [address] PCP - General Internal Medicine 12/04/24 [place] [address] [place] [address] Consulting Physician Dermatology 12/04/24 Chichi Gomez RN [place] Nurse Rail Car Loader 01/01/25 documented as of this encounter
--- OUTSIDE RECORDS SUMMARY | 2025-01-12 12:06 | XMS_ITS | Encounter Summary ---
Author Organization [facility] Address [address] [place] [address] Phone Care Team Providers Care Health Occupations Instructor Name Role Phone Rob Mendoza MD Primary Care Provider [phone] Chichi Gomez RN Unavailable Unavailable Phan Gómez MD Unavailable [phone] Teresa Ch MD Primary Care Provider [phone] Jasmin Kyle MD Unavailable [phone] Artie Flynn MD Primary Care Provider [phone] Chichi Gomez RN Unavailable Unavailable Reason for Visit * Reason Comments Medication Refill Encounter Details Date Type Department Care Team (Late st Contact Info) Description 01/15/2024 Refill [facility] - Family Medicine [facility] [address] [place] [address] Rob Mendoza MD #[address] [address] Medication Refill Social History Tobacco Use Types Packs/Day Years Used Date Smoking Tobacco: Former Cigarettes Q uit: 02/28/2014 Smokeless Tobacco: Never Alcohol Use Standard Drinks/Week Comments No 0 (1 standard drink = 0.6 oz pur e alcohol) [facility] Utilities Answer Date Recorded In the past 12 months has [employer], gas, oil, or water company threatened [...] often do you attend chur ch or christian services? 1 to 4 times per year 01/11/2024 Do you belong to any clubs o r organizations such as voodoo groups, unions, fraternal or athletic groups, or [...] Total Score - Questions 1-9 0 12/17 [facility] - Occupational Stress Questionnaire Answer [...] in a longterm (including now)? No 01/11/2024 Sexually Active Control Partners Comments Not Currently Comments No Sex and Gender Information Value Date Recorded Sex Assigned at Not on file Legal Sex Female 7:34 PM CDT Gender Identity Not on file Sexual Orientation Not on file documented as of this encounter Miscellaneous Notes * Telephone Encounter - Deepali Araujo, RN - 01/17/2024 2:35 PM CDT Refill requested too soon. documented in this encounter Plan of Treatment Upcoming Encounters Date Type Department Care Team (Late st Contact Info) Description 06/07/2025 11:00 AM CDT Office Visit [facility] - Primary Care - Veena [address] [place] [address] Artie Flynn MD [address], [place] [address] documented as of this encounter Visit Diagnoses Not on filedocumented in this encounter Additional Health Concerns Assessment Noted Time PHQ-9 Depression Total Score: 0 01/11/20 24 9:52 AM CDT documented as of this encounter Care Teams Health Occupations Instructor Relationship Specialty Start Date End Date Rob Mendoza MD #[address] [address] PCP - General Family Medicine 09/30/18 08/31/24 Phan Gómez MD [address] [place] [address] PCP - Hospice Attending Provider 06/30/24 07/03/24 Teresa Ch MD [address] [place] [address] PCP - General Family Medicine 09/01/24 12/03/24 Artie Flynn MD [address] [place] [address] PCP - General Internal Medicine 12/04/24 Chichi Gomez RN [place] Nurse Orthotic Aide 01/05/24 07/03/24 Jasmin Kyle MD [address] [place] [address] Consulting Physician Dermatology 12/04/24 Chichi Gomez RN [place] Nurse Orthotic Aide 01/01/25 documented as of this encounter
--- OUTSIDE RECORDS SUMMARY | 2025-01-12 12:06 | XMS_ITS | Clinical Summary ---
Author Organization [facility] Address [address] [place] [address] Care Team Providers Care Switchboard Clerk Name Role Phone Rob Mendoza MD Primary Care Provider [phone] Source Comments [facility],non-owned Affiliates and Associated Physician Practices is amultiple site organization consisting of ambulatory clinics and hospital sitesin [place], [place], [place] and [place]. This disclosure is being madepursuant to the Care Everywhere program and may not contain all information available regarding this patient. Last updated 18.[facility] Allergies Active Allergy Reactions Criticality Noted Date Comments Hydrocodone-Acetaminophen Nausea and/or Vomiting 01/31/2024 Medications * Be aware that medications may not be up to date on this document. Alwaysverify current medications with the patient. Medication Sig Dispensed Refills Start Date End Date Status allopurinol (Zyloprim) 300 MG tablet Take 1 (one) tablet by mouth once daily Active bumetanide (Bumex) 2 MG tablet Take 1 (one) tablet by mouth once daily Active clopidogrel (plaVIX) 75 MG tablet Take 1 (one) tablet by mouth once daily Active fenofibrate (Lofibra) 54 MG tablet Take 1 (one) tablet by mouth once daily Take with largest meal of the day. Active levothyroxine (Synthroid) 50 MCG tablet Take 1 (one) tablet by mouth daily before breakfast Active metoprolol tartrate IR (Lopressor) 50 MG tablet Take 1 (one) tablet by mouth 2 times daily Active POTASSIUM CHLORIDE ER PO Take 40 mEq by mouth 2 times daily Active nitroGLYCERIN (Nitrostat) 0.4 MG tablet Dissolve 1 (one) tablet under the tongue every 5 minutes as needed for Angina Active vitamin D (Cholecaciferol) 125 MCG (5000 UT) capsule Take 1 (one) capsule by mouth once daily Active Acetaminophen (TYLENOL 8 HOUR PO) Take 1,000 mg by mouth once daily Active fluticasone-salmeter ol hfa (Advair HFA) 115-21 MCG/ACT Inhale 2 (two) puffs by mouth 2 times daily Active Albuterol Sulfate (PROVENTIL HFA IN) Inhale by mouth as needed Active Carboxymethylcellulo se Sodium (DRY EYE RELIEF OP) by Ophthalmic route 2 times daily Active Active Problems No known active problems Social History Tobacco Use Types Packs/Day Years Used Date Smoking Tobacco: Never Smokeless Tobacco: Never Tobacco Cessation:Counseling Given: Not Answered Alcohol Use Standard Drinks/Week Comments Never 0 (1 standard drink = 0.6 oz pur e alcohol) Sex and Gender Information Value Date Recorded Sex Assigned at Not on file Gender Identity Not on file Sexual Orientation Not on file Plan of Treatment Health Maintenance Due Date Last Done Comments BONE DENSITY TESTING 1940 MEDICARE AWV 12 MONTHS 1940 DTAP/TDAP/TD VACCINES (1 - Tdap) 1959 PNEUMOCOCCAL VACCINE 50+ (1 of 1 - PCV) 1990 ZOSTER VACCINE (1 of 2) 1990 Respiratory Syncytial Virus (RSV) Vaccine Pt: or over 60 yrs (1 - 1-dose 75+ series) 2015 COVID-19 VACCINE (3 - 2023- season) 2024 02/24/2021, 01/27/2021 INFLUENZA VACCINE (#1) 2024 , 07/14/2019, 06/20/2019, Additional history exists DEPRESSION SCREENING 10/18/2024 HEPATITIS B VACCINE Aged Out No longe r eligible based on patient's age to complete this topic HIB VACCINE Aged Out No longer eligi ble based on patient's age to complete this topic HPV VACCINE Aged Out No longer eligi ble based on patient's age to complete this topic MENINGOCOCCAL (Group B) VACCINE SHARED DECISION-MAKING Aged Out No longer eligible based on patient's age to complete this topic MENINGOCOCCAL GROUPS A/C/Y/W VACCINE Aged Out No longer eligible based on patient's age to complete this topic Care Teams Switchboard Clerk Relationship Specialty Start Date End Date Rob Mendoza MD [address] [address] PCP - General Family Medicine 01/31/24
--- OUTSIDE RECORDS SUMMARY | 2025-01-12 12:06 | XMS_ITS | Encounter Summary ---
Author Organization [facility] Address [address] [facility] [place] [address] Phone Care Team Providers Care Iron Miner Name Role Phone Rob Mendoza MD Primary Care Provider [phone] Teresa Ch MD Primary Care Provider [phone] Jasmin Kyle MD Unavailable [phone] Artie Flynn MD Primary Care Provider [phone] Chichi Gomez RN Unavailable Unavailable Reason for Referral * Radiology Services (Less Than 3 Days) - Closed Specialty Diagnoses / Procedures Referred By Contjustus t Referred To Contact Radiology Diagnoses Peripheral arterial disease (HCC) Procedures CT ANGIO BILAT ABD AORTA ILIOFEMORAL W/WO Chris Chau PAC Phone: tel: fax: Referral ID Status Reason Start Date Expiration Date Visits Re quested Visits Authorized [id number] Closed 07/17/2024 1 1 Encounter Details Date Type Department Care Team (Late st Contact Info) Description 07/17/2024 Nursing Facility [facility] [address] [place] [id number] Chris Chau, PAC [address] [place] [address] Peripheral arterial disease (HCC) (Primary Dx) Social History Tobacco Use Types Packs/Day Years Used Date Smoking Tobacco: Former Cigarettes Q uit: 02/28/2014 Smokeless Tobacco: Never Alcohol Use Standard Drinks/Week Comments No 0 (1 standard drink = 0.6 oz pur e alcohol) [facility] Utilities Answer Date Recorded In the past 12 months has th e electric, gas, oil, or water company threatened [...] declined 06/30/2024 How often do you attend uatsdin or buddhist serv ices? Patient declined 06/30/2024 Do you belong to any clubs o r organizations such as uatsdin groups, unions, fraternal or athletic groups, or [...] Total Score - Questions 1-9 0 12/17 [place] [facility] - Occupational Stress [...] place to sleep or slept in a custodial (including now)? No 01/11/2024 Housing Stability Vital [...] were you homeless or living in a custodial (including now)? Patient declined 06/30/2024 Sexually Active Control Partners Comments Not Currently Comments No Sex and Gender Information Value Date Recorded Sex Assigned at Not on file Legal Sex Female 7:34 PM CDT Gender Identity Not on file Sexual Orientation Not on file documented as of this encounter Progress Notes * Chris Chau, PAC - 07/17/2024 1:33 PM CDT [facility] PROGRESS NOTE Nichelle Hunt is a 84 y.o. female at [facility] for rehabilitation. Subjective: Interval History: I am seeing patient today for a skilled encounter. She is lying comfortably in bed. This came back from therapy. Says she is feeling ???better?? . Lower extremity pain is improving and less edematous. No GI issues. She feels like therapy is going well. She is still debilitated but she is motivated to get her strength back. Past Medical History Positives [...] Session: Patient declined Stress: Patient Declined (06/30/2024) [place] [facility] [employer] - Occupational Stress Questionnaire Feeling of Stress : Patient declined Social Integration: Patient Declined (06/30/2024) Social Connection and Isolation Panel [NHANES] Frequency of Communication with Friends and Family: Patient declined Frequency of Social Gatherings with Friends and Family: Patient declined Attends Muslim Services: Patient declined Active Member of Clubs [...] significant stenosis. No flow seen in right JAVA SUPPORT ENGINEER, right SFA, right popliteal and both HEALTH SAFETY ENGINEER, possibility of their complete occlusion cannot be excluded. CT angiogram is advised for further evaluation. . Interpreting Radiology Company: [employer] . Interpreting Doctor: Lita Ortiz MD . Electronically Signed By: Lita Ortiz MD . Signed Date: Physician electronically signed on - 07/14/2024 09:22:35 PM Assessment/Plan: Generalized weakness and deconditioning Receiving usp care and physical therapy rehabilitation Right lower [...] aorta with runoff ordered for further evaluation Constipation Complicated by her current oxycodone use and being less mobile than normal 07/10: Uncontrolled. MiraLax increase to b.i.d. and start her on Colace b.i.d.. 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 This note was dictated using M*Modal fluency dictation system and there may be errors in shell molding roller blast operator. Despite proof reading the note, there may be mistakes and I apologize for those. By: BURT Styles, 07/17/2024 1:33 PM CDT documented in this encounter Plan of Treatment Upcoming Encounters Date Type Department Care Team (Late st Contact Info) Description 06/07/2025 11:00 AM CDT Office Visit [facility] - Primary Care - [address] [place] [id number] Artie Flynn MD [address] [place] [address] documented as of this encounter Procedures Procedure Name Priority Date/Time Associated Diagnosis Comments CT ANGIO BILAT ABD AORTA ILIOFEMORAL W/WO Less Than 3 Days 07/20/2024 11:49 AM CDT Peripheral arterial disease (HCC) documented in this encounter Results * CT ANGIO BILAT ABD AORTA ILIOFEMORAL W/WO (07/20/2024 11:49 AM CDT) Anatomical Region Laterality Modality vascular Bilateral Computed Tomogra phy 07/20/2024 1:25 PM CDT Impressions 07/20/2024 1:27 PM CDT IMPRESSION: 1. Bilateral continuous three-vessel runoff to supply the foot. Scattered multifocal atherosclerotic changes of the abdominal aorta and its major branches with up to mild stenosis. No abdominal aortic aneurysm. 2. Findings of volume overload including diffuse anasarca lower extremity edema, and small volume ascites. 3. Diffuse edema of the bilateral lower legs and feet with associated skin thickening may reflect reported cellulitis. No organized drainable fluid collection. 4. Mildly displaced distal left 4th and 5th metatarsal fractures. 5. Circumferential bladder wall thickening with mucosal hyperenhancement compatible with cystitis. Recommend correlation with urinalysis. 6. Bilateral renal cortical scarring. Left inferior renal pole irregularity may reflect scarring, although a small angiomyolipoma could give a similar appearance. Recommend correlation with prior outside imaging if available. 7. Colonic diverticulosis without acute diverticulitis. 8. Probable left upper quadrant splenule adjacent to the greater curvature of the stomach. Recommend correlation with outside imaging to demonstrate stability. 9. Additional incidental and chronic findings as above. Narrative 07/20/2024 1:27 PM CDT EXAM DESCRIPTION: CT ANGIO BILAT ABD AORTA ILIOFEMORAL W/WO REASON FOR STUDY: c/o bilateral lower extremity pain , chronic ulceration x 2-3 years. TECHNIQUE: CTA of the abdominal aorta with bilateral lower extremity runoff was performed with intravenous contrast using helical scanning technique. Precontrast and arterial images were obtained of the lower extremities. Images reviewed with soft tissue and bone windows. Reconstructed coronal and sagittal MPR images reviewed. All images stored on PACS. 3D MIP images rendered on scanning unit and reviewed at time of interpretation. Automated exposure control was used as a dose optimization technique for this examination. CONTRAST TYPE/DOSE: 124mL of IOPAMIDOL 76 % IV SOLN injected via Intravenous COMPARISON: CT chest 09/30/2018 FINDINGS: Images degraded by streak/beam hardening artifact from patient's upper extremities. VASCULATURE: AORTA: Multifocal atherosclerotic changes of the abdominal aorta and its major branches. No abdominal aortic aneurysm. CELIAC TRUNK: Celiac origin is not visualized within the field of view. Visualized portions of the celiac branches are grossly patent without flow-limiting stenosis. SUPERIOR MESENTERIC ARTERY: No flow limiting stenosis, dissection, or aneurysm. RIGHT RENAL ARTERY: Accessory right renal artery. No significant stenosis. LEFT RENAL ARTERY: No flow limiting stenosis, dissection, or aneurysm. INFERIOR MESENTERIC ARTERY: No flow limiting stenosis, dissection, or aneurysm. PELVIC VASCULATURE: Common/external iliac arteries: Multifocal atherosclerotic changes with up to mild stenosis. Internal iliac arteries: Multifocal atherosclerotic changes with up to mild stenosis. RIGHT LOWER EXTREMITY VASCULATURE: Multifocal atherosclerotic changes of the lower extremity vasculature with up to mild stenosis. Anterior tibial artery without significant stenosis continues to supply the dorsalis pedis. Posterior tibial artery without significant stenosis continues to supply the plantar arch. Peroneal artery without significant stenosis to the level of the ankle. Multiple venous varicosities. Multiple superficial venous calcifications. LEFT LOWER EXTREMITY VASCULATURE: Multifocal atherosclerotic changes of the lower extremity vasculature with up to mild stenosis. Anterior tibial artery without significant stenosis continues to supply the dorsalis pedis. Posterior tibial artery continues to supply the plantar arch. Peroneal artery without significant stenosis to the level of the ankle. Multiple venous varicosities. Multiple superficial venous calcifications. ABDOMEN/PELVIS: LOWER CHEST: Not included in the field of view. LIVER: Visualized portions of the liver without concerning lesion. GALLBLADDER/BILE DUCTS: Mild biliary duct prominence similar to prior and may be physiologic in the setting of cholecystectomy. SPLEEN: Heterogeneous enhancement likely related to phase of contrast. Multiple small splenules. Left upper quadrant enhancing nodule adjacent to the greater curvature stomach favored to reflect a small splenule (such as 4; 14). PANCREAS: No significant ductal dilatation or discrete lesion. ADRENALS: No measurable nodule. KIDNEYS/URETERS: Right renal cortical atrophy/scarring. Irregular appearance of the left lateral inferior renal pole may reflect cortical scarring versus small AML measuring proximally 1.9 x 1.2 cm (601; 55). No hydronephrosis. BLADDER: Circumferential bladder wall thickening with mild mucosal enhancement and adjacent stranding. Obscured by streak artifact. REPRODUCTIVE: Status post hysterectomy. No concerning adnexal lesion, although the ovaries are poorly evaluated by CT. Obscured by streak artifact. GASTROINTESTINAL: Colonic diverticulosis without acute inflammation. Appendix is not definitively visualized. However, there are no significant inflammatory changes within the right lower quandrant. No bowel obstruction. LYMPH NODES: No pathologically enlarged abdominal or pelvic lymphadenopathy. PERITONEUM/RETROPERITONEUM: Small volume ascites. No organized drainable fluid collection. VASCULATURE: As above. MUSCULOSKELETAL: Mild diffuse anasarca. Multilevel degenerative changes of the visualized spine. Postsurgical changes status post right total hip arthroplasty. No definite acute hardware complication. Grade 1 anterolisthesis of L4 on L5. Right lower extremity: Advanced tricompartmental osteoarthropathy of the right knee with associated small joint effusion and Weiss's cyst. Diffuse edema of the lower right lower extremity most pronounced overlying the ankle and dorsal foot. No organized drainable fluid collection. Mild circumferential skin thickening of the lower leg and foot. Left lower extremity: Advanced tricompartmental osteoarthropathy of the left knee with associated small joint effusion.. Diffuse edema of the lower leg most pronounced overlying the ankle and dorsal foot. Mild circumferential skin thickening. No organized drainable fluid collection. Mildly displaced fracture of the left 4th and 5th metatarsals. OTHER: No significant abnormality. THIS IS AN ELECTRONICALLY VERIFIED FINAL REPORT 07/20/2024 1:25 PM - Electronically signed by Jean Claude Segovia M.D. NS: NS Report ID: [id number] Reading Location: [id number] Procedure Note Jean Claude Segovia MD - 07/20/2024 EXAM DESCRIPTION: CT ANGIO BILAT ABD AORTA ILIOFEMORAL W/WO REASON FOR STUDY: c/o bilateral lower extremity pain , chronic ulceration x 2-3 years. TECHNIQUE: CTA of the abdominal aorta with bilateral lower extremity runoff was performed with intravenous contrast using helical scanning technique. Precontrast and arterial images were obtained of the lower extremities. Images reviewed with soft tissue and bone windows. Reconstructed coronal and sagittal MPR images reviewed. All images stored on PACS. 3D MIP images rendered on scanning unit and reviewed at time of interpretation. Automated exposure control was used as a dose optimization technique for this examination. CONTRAST TYPE/DOSE: 124mL of IOPAMIDOL 76 % IV SOLN injected via Intravenous COMPARISON: CT chest 09/30/2018 FINDINGS: Images degraded by streak/beam hardening artifact from patient's upper extremities. VASCULATURE: AORTA: Multifocal atherosclerotic changes of the abdominal aorta and its major branches. No abdominal aortic aneurysm. CELIAC TRUNK: Celiac origin is not visualized within the field of view. Visualized portions of the celiac branches are grossly patent without flow-limiting stenosis. SUPERIOR MESENTERIC ARTERY: No flow limiting stenosis, dissection, or aneurysm. RIGHT RENAL ARTERY: Accessory right renal artery. No significant stenosis. LEFT RENAL ARTERY: No flow limiting stenosis, dissection, or aneurysm. INFERIOR MESENTERIC ARTERY: No flow limiting stenosis, dissection, or aneurysm. PELVIC VASCULATURE: Common/external iliac arteries: Multifocal atherosclerotic changes with up to mild stenosis. Internal iliac arteries: Multifocal atherosclerotic changes with up to mild stenosis. RIGHT LOWER EXTREMITY VASCULATURE: Multifocal atherosclerotic changes of the lower extremity vasculature with up to mild stenosis. Anterior tibial artery without significant stenosis continues to supply the dorsalis pedis. Posterior tibial artery without significant stenosis continues to supply the plantar arch. Peroneal artery without significant stenosis to the level of the ankle. Multiple venous varicosities. Multiple superficial venous calcifications. LEFT LOWER EXTREMITY VASCULATURE: Multifocal atherosclerotic changes of the lower extremity vasculature with up to mild stenosis. Anterior tibial artery without significant stenosis continues to supply the dorsalis pedis. Posterior tibial artery continues to supply the plantar arch. Peroneal artery without significant stenosis to the level of the ankle. Multiple venous varicosities. Multiple superficial venous calcifications. ABDOMEN/PELVIS: LOWER CHEST: Not included in the field of view. LIVER: Visualized portions of the liver without concerning lesion. GALLBLADDER/BILE DUCTS: Mild biliary duct prominence similar to prior and may be physiologic in the setting of cholecystectomy. SPLEEN: Heterogeneous enhancement likely related to phase of contrast. Multiple small splenules. Left upper quadrant enhancing nodule adjacent to the greater curvature stomach favored to reflect a small splenule (such as 4; 14). PANCREAS: No significant ductal dilatation or discrete lesion. ADRENALS: No measurable nodule. KIDNEYS/URETERS: Right renal cortical atrophy/scarring. Irregular appearance of the left lateral inferior renal pole may reflect cortical scarring versus small AML measuring proximally 1.9 x 1.2 cm (601; 55). No hydronephrosis. BLADDER: Circumferential bladder wall thickening with mild mucosal enhancement and adjacent stranding. Obscured by streak artifact. REPRODUCTIVE: Status post hysterectomy. No concerning adnexal lesion, although the ovaries are poorly evaluated by CT. Obscured by streak artifact. GASTROINTESTINAL: Colonic diverticulosis without acute inflammation. Appendix is not definitively visualized. However, there are no significant inflammatory changes within the right lower quandrant. No bowel obstruction. LYMPH NODES: No pathologically enlarged abdominal or pelvic lymphadenopathy. PERITONEUM/RETROPERITONEUM: Small volume ascites. No organized drainable fluid collection. VASCULATURE: As above. MUSCULOSKELETAL: Mild diffuse anasarca. Multilevel degenerative changes of the visualized spine. Postsurgical changes status post right total hip arthroplasty. No definite acute hardware complication. Grade 1 anterolisthesis of L4 on L5. Right lower extremity: Advanced tricompartmental osteoarthropathy of the right knee with associated small joint effusion and Weiss's cyst. Diffuse edema of the lower right lower extremity most pronounced overlying the ankle and dorsal foot. No organized drainable fluid collection. Mild circumferential skin thickening of the lower leg and foot. Left lower extremity: Advanced tricompartmental osteoarthropathy of the left knee with associated small joint effusion.. Diffuse edema of the lower leg most pronounced overlying the ankle and dorsal foot. Mild circumferential skin thickening. No organized drainable fluid collection. Mildly displaced fracture of the left 4th and 5th metatarsals. OTHER: No significant abnormality. THIS IS AN ELECTRONICALLY VERIFIED FINAL REPORT 07/20/2024 1:25 PM - Electronically signed by Jean Claude Segovia M.D. NS: NS Report ID: [id number] Reading Location: [place] [id number] IMPRESSION: 1. Bilateral continuous three-vessel runoff to supply the foot. Scattered multifocal atherosclerotic changes of the abdominal aorta and its major branches with up to mild stenosis. No abdominal aortic aneurysm. 2. Findings of volume overload including diffuse anasarca lower extremity edema, and small volume ascites. 3. Diffuse edema of the bilateral lower legs and feet with associated skin thickening may reflect reported cellulitis. No organized drainable fluid collection. 4. Mildly displaced distal left 4th and 5th metatarsal fractures. 5. Circumferential bladder wall thickening with mucosal hyperenhancement compatible with cystitis. Recommend correlation with urinalysis. 6. Bilateral renal cortical scarring. Left inferior renal pole irregularity may reflect scarring, although a small angiomyolipoma could give a similar appearance. Recommend correlation with prior outside imaging if available. 7. Colonic diverticulosis without acute diverticulitis. 8. Probable left upper quadrant splenule adjacent to the greater curvature of the stomach. Recommend correlation with outside imaging to demonstrate stability. 9. Additional incidental and chronic findings as above. Chris Chau PAC IMG CT ORDERABLES F inal Result documented in this encounter Visit Diagnoses Diagnosis Peripheral arterial disease (HCC)- Primary Unspecified disorders of arteries and arterioles documented in this encounter Additional Health Concerns Assessment Noted Time PHQ-9 Depression Total Score: 0 01/11/20 9:52 AM CDT documented as of this encounter Care Teams Iron Miner Relationship Specialty Start Date End Date Rob Mendoza MD #[address] [address] PCP - General Family Medicine 09/30/18 08/31/24 Teresa Ch MD [address] [facility] [place] [address] PCP - General Family Medicine 09/01/24 12/03/24 Artie Flynn MD [address] [place] [address] PCP - General Internal Medicine 12/04/24 Jasmin Kyle MD [address] [place] [address] Consulting Physician Dermatology 12/04/24 Chichi Gomez RN [place] Nurse Industrial Millwright 01/01/25 documented as of this encounter
== END 2025-01-12 10:48 | disposition home or self-care (01) ==
LOC: ANHSURGERY 11:04
PROVIDERS: Anesthesiology; PCP Internal Medicine; Visit Provider Plastic Surgery
DX: Z01.818 Encounter for other preprocedural examination (principal); I25.10 Atherosclerotic heart disease of native coronary artery without angina pectoris; E78.5 Hyperlipidemia, unspecified; N18.30 Chronic kidney disease, stage 3 unspecified; I12.9 Hypertensive chronic kidney disease with stage 1 through stage 4 chronic kidney disease, or unspecified chronic kidney disease
CPT/HCPCS: 36415; 80048; 85610; 85730; 93005

== ENCOUNTER 2025-01-16 00:36 | Day surgery (SDC) | payer MEDICARE, SELFPAY ==
[2025-01-10 12:58] VITALS: BMI 33.2
--- NOTE | 2025-01-10 13:20 | PC.NURSE ---
Report to the Outpatient Waiting Room, entrance under the green pavilion located off [facility], at time ___0900am____ on date _01/16/25 . Planned Procedure Time: __1100am .? Time changes happen often and if your time is changed the preop area will call you the afternoon before. - You and your visitor will be asked to self-screen and do not enter if you have any COVID symptoms. Please call surgeon if you need to reschedule. - A mask is optional within the hospital at this time. Patients may have No food or drink from midnight until time of surgery and no smoking, or chewing tobacco (or any form of nicotine). No chewing gum, candy or mints. Take only the following medications with a SIP of water on the morning of surgery: ___Metoprolol, Levothyroxine, Gabapentin, Tylenol and Inhalers DO NOT STOP ANY OF YOUR OTHER PRESCRIPTION MEDICATIONS PRIOR TO SURGERY EXCEPT THE FOLLOWING Hold all vitamins and supplements for 3 days per anesthesiologist. Date to take last dose 01/10/25 per pt to remember. Medications to discontinue per physician Plavix to hold [address] Mantilla Date to take last dose 01/08/25 Please no make-up, nail latvian, hairspray, perfume, deodorant, or body powder the day of surgery.? No jewelry (including any body piercings) or valuables the day of surgery, leave them at home.? Please take a shower or bath the night before, or the morning of, surgery with an antibacterial soap.? Wear comfortable, loose fitting clothing.? - Jewelry must be removed prior to entering the operating room.? Rings and piercings that are not removed may be cut off. - The hospital will not accept responsibility for valuables.? - Please leave all valuables, including medications, at home the day of surgery. If you are going home after surgery, a licensed pack train driver must drive you home.? - NO public transportation without another adult if you receive anesthesia. - We recommend that an adult stay with you for 24 hours following discharge. - We also recommend that you do not drive, make important decision, drink alcoholic beverages, or take any drugs that were not prescribed by your health care provider for at least 24 hours after your discharge time. Follow any additional instructions given to you from your surgeon. Telephone instructions given to __Patient and asked if any additional questions and then verbalized understanding. Patient advised to call surgeon office or pre surgery nurse liaison [phone] if any additional questions.
[2025-01-16] VITALS (9 sets, daily range): BP systolic 129–154; BP diastolic 45–63; PULSE 54–65; RESP 17–20; TEMP 36.1–36.2; O2SAT 93–100
--- OUTSIDE RECORDS SUMMARY | 2025-01-16 00:39 | XMS_ITS | Encounter Summary ---
Author Organization [facility] Address [address] [facility] [place] [address] Phone Care Team Providers Care Student Ambassador Name Role Phone Rob Mendoza MD Primary Care Provider Chichi Gomez RN Unavailable Unavailable Phan Gómez MD Unavailable Teresa Ch MD Primary Care Provider [phone] aJsmin Kyle MD Unavailable [phone] Artie Flynn MD Primary Care Provider Chichi Gomez RN Unavailable Unavailable Encounter Details Date Type Department Care Team (Late st Contact Info) Description 09/02/2023 Telephone [facility] [address] [place] [address] Rob Mendoza MD #[address] [address] Social History Tobacco Use Types Packs/Day Years [...] Primary Care - Veena [address] [place] [id number] Artie Flynn MD [address] [place] [address] documented as of this encounter Visit Diagnoses Not on filedocumented in this encounter Additional Health Concerns Assessment Noted Time PHQ-9 Depression Total Score: 0 07/22/20 8:40 AM CDT documented as of this encounter Care Teams Student Ambassador Relationship Specialty Start Date End Date Rob Mendoza MD #[address] [address] PCP - General Family Medicine 09/30/18 08/31/24 Phan Gómez MD [address] [place] [address] PCP - Hospice Attending Provider 06/30/24 07/03/24 Teresa Ch MD [address] [place] [address] PCP - General Family Medicine 09/01/24 12/03/24 Artie Flynn MD [address] [place] [address] PCP - General Internal Medicine 12/04/24 Chichi Gomez, RN [place] Nurse Physical Anthropologist 01/05/24 07/03/24 [place] [address] [place] [address] Consulting Physician Dermatology 12/04/24 Chichi Gomez RN [place] Nurse Physical Anthropologist 01/01/25 documented as of this encounter
--- OUTSIDE RECORDS SUMMARY | 2025-01-16 00:39 | XMS_ITS | Encounter Summary ---
Author Organization [facility] Address [address] [place] [address] Phone Care Team Providers Care Order Analyst Name Role Phone Rob Mendoza MD Primary Care Provider [phone] Chichi Gomez RN Unavailable Unavailable Phan Gómez MD Unavailable Teresa Ch MD Primary Care Provider [phone] Jasmin Kyle MD Unavailable [phone] Artie Flynn MD Primary Care Provider [phone] Chichi Gomez RN Unavailable Unavailable Reason for Visit * Reason Comments Medication Refill Encounter Details Date Type Department Care Team (Late st Contact Info) Description 07/02/2020 Refill [facility] [address] [place] [address] Rob Mendoza MD [address] [address] Medication Refill Social History Tobacco Use Types [...] S/P percutaneous coronary angi[facility] Rob Mendoza MD 11 months ago CAD S/P percutaneous coronary angioplasty [facility] Rob Mendoza MD 1 year ago Essential [facility] Rob Mendoza MD 1 year ago Essential hypertension [facility] Criss Galdamez PAC 2 years ago Essential hypertension [facility] Cee Contreras MD Upcoming Appointments Future Appointments In 1 week Lab, [facility], [facility] In 2 weeks Rob Mendoza MD [facility], [facility] BUSINESS DATA ANALYST - Recent and Past Visits Recent Visits [...] Description 06/07/2025 11:00 AM CDT Office Visit [facility] - Primary Care - [place] [address] [place] [address] Artie Flynn MD [address] [place] [address] documented as of this encounter Visit Diagnoses Not on filedocumented in this encounter Additional Health Concerns Assessment Noted Time PHQ-9 Depression Total Score: 0 01/24/20 19 10:00 AM CDT documented as of this encounter Care Teams Order Analyst Relationship Specialty Start Date End Date Rob Mendoza MD [address] [address] PCP - General Family Medicine 09/30/18 08/31/24 Phan Gómez MD [address] [place] [address] PCP - Hospice Attending Provider 06/30/24 07/03/24 Teresa Ch MD [address] [place] [address] PCP - General Family Medicine 09/01/24 12/03/24 Artie Flynn MD [address] [place] [address] PCP - General Internal Medicine 12/04/24 Chichi Gomez RN [place] Nurse Milk Drying Machine Operator 01/05/24 07/03/24 Jasmin Kyle MD [address] [place] [address] Consulting Physician Dermatology 12/04/24 Chichi Gomez, RN [place] Nurse Milk Drying Machine Operator 01/01/25 documented as of this encounter
--- OUTSIDE RECORDS SUMMARY | 2025-01-16 00:39 | XMS_ITS ---
Author Organization [facility] Address [address], [address] [address] Phone Care Team Providers Care Media Traffic Manager Name Role Phone Jasmin Kyle MD Unavailable [phone] Artie Flynn MD Primary Care Provider [phone] Chichi Gomez RN Unavailable Unavailable Ambulatory Complex Care Management Status:Enrolled (Active) Start date:01/01/2025 Enrollment date:01/09/2025 Enrollment reason:Identified as high-risk Current support & services provided:RN Care Managed Related social drivers of health:Social Connections, Tobacco Use, Physical Activity Overview Complex Care Management Program Case Team Name Relationship Phone Chichi Gomez RN Nurse Hose Suspender Cutter(Responsible Staff) Continued Care and Services Coordination
--- OUTSIDE RECORDS SUMMARY | 2025-01-16 00:39 | XMS_ITS | Encounter Summary ---
Author Organization [facility] Address [address] [place] [address] Phone Care Team Providers Care Industrial Ecology Technician Name Role Phone Rob Mendoza MD Primary Care Provider [phone] Chichi Gomez RN Unavailable Unavailable Phan Gómez MD Unavailable [phone] Teresa Ch MD Primary Care Provider [phone] Jasmin Kyle MD Unavailable [phone] Artie Flynn MD Primary Care Provider [phone] Chichi Gomez RN Unavailable Unavailable Reason for Visit * Reason Comments Medication Refill Encounter Details Date Type Department Care Team (Late st Contact Info) Description 01/15/2024 Refill [facility] - Family Medicine [facility] [address] [place] [address] Rob Mendoza MD [address] [address] Medication Refill Social History Tobacco Use Types Packs/Day Years Used Date Smoking Tobacco: Former Cigarettes Q uit: 02/28/2014 Smokeless Tobacco: Never Alcohol Use Standard Drinks/Week Comments No 0 (1 standard drink = 0.6 oz pur e alcohol) [facility] Utilities Answer Date Recorded In the past 12 months has [employer], gas, oil, or water company threatened [...] often do you attend chur ch or yazidism services? 1 to 4 times per year 01/11/2024 Do you belong to any clubs o r organizations such as anglican groups, unions, fraternal or athletic groups, or [...] Total Score - Questions 1-9 0 12/17 [facility] - Occupational Stress Questionnaire Answer Date [...] Description 06/07/2025 11:00 AM CDT Office Visit [facility] - Primary Care - [place] [address] [place] [address] Artie Flynn MD [address] [place], [place] [address] documented as of this encounter Visit Diagnoses Not on filedocumented in this encounter Additional Health Concerns Assessment Noted Time PHQ-9 Depression Total Score: 0 01/11/20 24 9:52 AM CDT documented as of this encounter Care Teams Industrial Ecology Technician Relationship Specialty Start Date End Date Rob Mendoza MD [address] [address] PCP - General Family Medicine 09/30/18 08/31/24 Phan Gómez MD [address] [place] [address] PCP - Hospice Attending Provider 06/30/24 07/03/24 Teresa Ch MD [address] [place] [address] PCP - General Family Medicine 09/01/24 12/03/24 Artie Flynn MD [address] [place] [address] PCP - General Internal Medicine 12/04/24 Chichi Gomez RN [place] Nurse Wafer Batter Mixer 01/05/24 07/03/24 Jasmin yKle MD [address] [place] [address] Consulting Physician Dermatology 12/04/24 Chichi Gomez RN [place] Nurse Wafer Batter Mixer 01/01/25 documented as of this encounter
--- OUTSIDE RECORDS SUMMARY | 2025-01-16 00:40 | XMS_ITS | Clinical Summary ---
Author Organization [facility] Address [address] [place] [address] Care Team Providers Care Canvas Repairer Name Role Phone Rob Mendoza MD Primary Care Provider [phone] Source Comments [facility],non-owned Affiliates and Associated Physician Practices is amultiple site organization consisting of ambulatory clinics and hospital sitesin [place], [place], [place] and [place]. This disclosure is being madepursuant to the Care Everywhere program and may not contain all information available regarding this patient. Last updated 18.[employer] [facility] Allergies Active Allergy Reactions Criticality Noted Date [...] age to complete this topic Care Teams Canvas Repairer Relationship Specialty Start Date End Date Rob Mendoza MD [address] [address] PCP - General Family Medicine 01/31/24
--- OUTSIDE RECORDS SUMMARY | 2025-01-16 00:40 | XMS_ITS | Encounter Summary ---
Author Organization [facility] Address [address] [place] [address] Phone Care Team Providers Care Flight Test Data Acquisition Technician Name Role Phone Rob Mendoza MD Primary Care Provider Chichi Gomez RN Unavailable Unavailable Phan Gómez MD Unavailable [phone] Teresa Ch MD Primary Care Provider [phone] Jasmin Kyle MD Unavailable [phone] Artie Flynn MD Primary Care Provider [phone] Chichi Gomez RN Unavailable Unavailable Reason for Visit * Reason Comments Medication Refill Encounter Details Date Type Department Care Team (Late st Contact Info) Description 08/12/2020 [facility] [address] [place], [place] [phone] Rob Mendoza MD #[address] [address] Medication Refill Social History Tobacco Use Types [...] weeks ago CAD S/P percutaneous coronary angioplasty [facility] Rob Hernandez MD 6 months ago CAD S/P percutaneous coronary angioplasty [facility] Rob Hernandez MD 1 year ago CAD S/P percutaneous coronary angioplasty [facility] Rob Hernandez MD 1 year ago Essential hypertension [facility] Rob Hernandez MD 1 year ago Essential hypertension [facility] Criss Germain PAC Upcoming Appointments Future Appointments In 5 months Lab, Sapg [facility], [facility] In 5 months Rob Mendoza MD [facility] Eduard [facility] SCAFFOLD SETTER - Recent and Past Visits Recent Visits [...] Description 06/07/2025 11:00 AM CDT Office Visit [facility] - Primary Care - [place] [address] [place] [address] Artie Flynn MD [address] [place] [address] documented as of this encounter Visit Diagnoses Not on filedocumented in this encounter Additional Health Concerns Assessment Noted Time PHQ-9 Depression Total Score: 0 07/22/20 20 8:40 AM CDT documented as of this encounter Care Teams Flight Test Data Acquisition Technician Relationship Specialty Start Date End Date Rob Mendoza MD #[address] [address] PCP - General Family Medicine 09/30/18 08/31/24 Phan Gómez MD [address] [place] [address] PCP - Hospice Attending Provider 06/30/24 07/03/24 Teresa Ch MD [address] [place] [address] PCP - General Family Medicine 09/01/24 12/03/24 Artie Flynn MD [address] [place] [address] PCP - General Internal Medicine 12/04/24 Chichi Gomez, RN [place] Nurse Staff Psychiatrist 01/05/24 07/03/24 Jasmin Kyle MD [address] [place] [address] Consulting Physician Dermatology 12/04/24 Chichi Gomez, RN [place] Nurse Staff Psychiatrist 01/01/25 documented as of this encounter
--- OUTSIDE RECORDS SUMMARY | 2025-01-16 00:40 | XMS_ITS | Continuity of Care Document ---
Author Organization [facility] Address [address] [place] [address] [place] [address] Phone Care Team Providers Care Corridor Redevelopment Manager Name Role Phone Emmy Oliva MD Unavailable Unavailable Advance Directives Directive Yes / No Effective Date File Name No Information Encounters Encounter Description Practice Location Reason(s) For Visit Diagnoses Date Provider Providers Copied on Encounter [facility], [id number] [place] [address] [address], [place], [place], [id number], [place] tel:[phone] [facility] Professional No Information Sep-2 0-200 [address]. [address] [facility] [place], [address], [place]. tel:[phone] Referring Provider: Maria Dolores Rivas, [address] [place] [address], [address]. tel:[phone] Family History Family Member Type Diagnosis Age At Onset No Information Payers Payer name Insurance type Covered green party ID Authoriza tion(s) Medicare [facility] [id number] [facility] CI [id number] Social History Type Description Quantity Date Captured [...]
--- OUTSIDE RECORDS SUMMARY | 2025-01-16 00:40 | XMS_ITS | Encounter Summary ---
Author Organization [facility] Address [address] [facility] [place] [address] Phone Care Team Providers Care Brake Drum Molder Name Role Phone Rob Mendoza MD Primary Care Provider [phone] Teresa Ch MD Primary Care Provider [phone] Jasmin Kyle MD Unavailable [phone] Artie Flynn MD Primary Care Provider [phone] Chichi Gomez RN Unavailable Unavailable Encounter Details Date Type Department Care Team (Late st Contact Info) Description 08/10/2024 Nursing Facility [facility] [address] [place] [address] Chris Chau, PAC [address] [place], [place] [id number] Social History Tobacco Use Types Packs/Day Years Used Date Smoking Tobacco: Former Cigarettes Q uit: 02/28/2014 Smokeless Tobacco: Never Alcohol Use Standard Drinks/Week Comments No 0 (1 standard drink = 0.6 oz pur e alcohol) [facility] Utilities Answer Date Recorded In the past 12 months has [employer], gas, oil, or water company threatened to [...] declined 06/30/2024 How often do you attend latter day or denominational serv ices? Patient declined 06/30/2024 Do you [...] Total Score - Questions 1-9 0 12/17 [facility] of Occupat ional [facility] - Occupational Stress Questionnaire Answer Date Recorded [...] place to sleep or slept in a skilled nursing (including now)? No 01/11/2024 Housing Stability Vital [...] any time in the past 12 m [facility], were you homeless or living in a skilled nursing (including now)? Patient declined 06/30/2024 Sexually Active Control Partners Comments Not Currently Comments No Sex and Gender Information Value Date Recorded Sex Assigned at Not on file Legal Sex Female 7:34 PM CDT Gender Identity Not on file Sexual Orientation Not on file documented as of this encounter Progress Notes * Chris Chau, PAC - 08/10/2024 2:22 PM CDT [facility] ASSISTED PROGRESS NOTE Nichelle Hunt is a 84 y.o. female at [facility] Nursing facility for rehabilitation. Subjective: [...] Session: Patient declined Stress: Patient Declined (06/30/2024) [facility]ational [facility] - Occupational Stress Questionnaire Feeling of Stress : Patient declined Social Integration: Patient Declined (06/30/2024) Social Connection and Isolation Panel [NHANES] Frequency of Communication with Friends and Family: Patient declined Frequency of Social Gatherings with Friends and Family: Patient declined Attends Yazdanism Services: Patient declined Active Member of Clubs [...] significant stenosis. No flow seen in right RADIO MECHANIC, right SFA, right popliteal and both TETRYL BOILING TUB OPERATOR, possibility of their complete occlusion cannot be excluded. CT angiogram is advised for further evaluation. . Interpreting Radiology Company: [employer]) . Interpreting Doctor: Lita Ortiz MD . [...] severe MILDRED. Generalized weakness and deconditioning Receiving senior living [...] this patient. This note was dictated using M*[employer] fluency dictation system and there may be errors in copy center operator. Despite proof reading the note, there may be mistakes and I apologize for those. By: Chris Chau, PAC, 08/10/2024 2:22 PM CDT documented in this encounter Plan of Treatment Upcoming Encounters Date Type Department Care Team (Late st Contact Info) Description 06/07/2025 11:00 AM CDT Office Visit [facility] - Primary Care - [place] [address] [place] [address] Artie Flynn MD [address] [place] [address] documented as of this encounter Visit Diagnoses Not on filedocumented in this encounter Additional Health Concerns Assessment Noted Time PHQ-9 Depression Total Score: 0 01/11/20 24 9:52 AM CDT documented as of this encounter Care Teams Brake Drum Molder Relationship Specialty Start Date End Date Rob Mendoza MD #[address] [address] PCP - General Family Medicine 09/30/18 08/31/24 Teresa Ch MD [address] [place] [address] PCP - General Family Medicine 09/01/24 12/03/24 Artie Flynn MD [address] [place] [address] PCP - General Internal Medicine 12/04/24 Jasmin Kyle MD [address] [place] [address] Consulting Physician Dermatology 12/04/24 Chichi Gomez RN [place] Nurse Electronics Computer Mechanic 01/01/25 documented as of this encounter
--- OUTSIDE RECORDS SUMMARY | 2025-01-16 00:40 | XMS_ITS | Encounter Summary ---
Author Organization [facility] Address [address] [facility] [place] [address] Phone Care Team Providers Care Mold Builder Name Role Phone Rob Mendoza MD Primary Care Provider [phone] Teresa Ch MD Primary Care Provider [phone] Jasmin Kyle MD Unavailable [phone] Artie Flynn MD Primary Care Provider [phone] Chichi Gomez RN Unavailable Unavailable Encounter Details Date Type Department Care Team (Late st Contact Info) Description 08/21/2024 Nursing Facility [facility] [place] [facility] [address] [place] [address] La Castillo, CARDIOVASCULAR SONOGRAPHER, WEATHERIZATION TECHNICIAN [address] [place] [address] Social History Tobacco Use Types Packs/Day Years Used Date Smoking Tobacco: Former Cigarettes Q uit: 02/28/2014 Smokeless Tobacco: Never Alcohol Use Standard Drinks/Week Comments No 0 (1 standard drink = 0.6 oz pur e alcohol) [facility] Utilities Answer Date Recorded In the past 12 months has [employer], gas, oil, or water [employer] threatened to shut off services in your home? Patient declined 06/30/2024 Social Connection and Isolation Panel [NHANES] A nswer Date Recorded In a typical week, how many times do you talk on the phone with family, friends, or neighbors? Patient declined 06/30/2024 How often do you get togethe r with friends or relatives? Patient declined 06/30/2024 How often do you attend muslim or moravian serv ices? Patient declined 06/30/2024 Do you belong to any clubs o r organizations such as muslim groups, unions, fraternal or athletic groups, or [...] Total Score - Questions 1-9 0 12/17 [facility] of Occupat ional [facility] - Occupational Stress Questionnaire Answer Date [...] any time in the past 12 m [facility], were you homeless or [...] Description 06/07/2025 11:00 AM CDT Office Visit [facility] - Primary Care - [place] [address] [place] [id number] Artie Flynn MD [address] [place] [address] documented as of this encounter Visit Diagnoses Not on filedocumented in this encounter Additional Health Concerns Assessment Noted Time PHQ-9 Depression Total Score: 0 01/11/20 24 9:52 AM CDT documented as of this encounter Care Teams Mold Builder Relationship Specialty Start Date End Date Rob Mendoza MD [address] [address] PCP - General Family Medicine 09/30/18 08/31/24 Teresa Ch MD [address] [place] [place] [address] PCP - General Family Medicine 09/01/24 12/03/24 Artie Flynn MD [address] [place] [address] PCP - General Internal Medicine 12/04/24 [place] [address] [place] [address] Consulting Physician Dermatology 12/04/24 Chichi Gomez, RN [place] Nurse Medical Laboratory Technician 01/01/25 documented as of this encounter
--- OUTSIDE RECORDS SUMMARY | 2025-01-16 00:40 | XMS_ITS | Encounter Summary ---
Author Organization [facility] Address [address] [facility] [place] [address] Phone Care Team Providers Care Forensic Examiner Name Role Phone Rob Mendoza MD Primary Care Provider [phone] Teresa Ch MD Primary Care Provider [phone] Jasmin Kyle MD Unavailable [phone] Artie Flynn MD Primary Care Provider [phone] Chichi Gomez RN Unavailable Unavailable Encounter Details Date Type Department Care Team (Late st Contact Info) Description 08/14/2024 [facility] [address] [place] [address] Chris Chau, PAC [address] [place], [place] [id number] Social History Tobacco Use Types Packs/Day Years Used Date Smoking Tobacco: Former Cigarettes Q uit: 02/28/2014 Smokeless Tobacco: Never Alcohol Use Standard Drinks/Week Comments No 0 (1 standard drink = 0.6 oz pur e alcohol) [facility] Utilities Answer Date Recorded In the past 12 months has [employer], gas, oil, or water company threatened to [...] declined 06/30/2024 How often do you attend restorationism or faith serv ices? Patient declined 06/30/2024 Do you belong to any clubs o r organizations such as restorationism groups, unions, fraternal or athletic groups, or [...] Total Score - Questions 1-9 0 12/17 [facility] of Occupat ional [facility] - Occupational Stress Questionnaire Answer Date [...] any time in the past 12 m [facility], were you homeless or [...] CDT [facility] RETIREMENT PROGRESS NOTE Nichelle Hunt is a 84 y.o. female at [facility]. Subjective: Interval History: [...] Session: Patient declined Stress: Patient Declined (06/30/2024) [facility] of Occupational Health - Occupational Stress Questionnaire Feeling of Stress : Patient declined Social Integration: Patient Declined (06/30/2024) Social Connection and Isolation Panel [NHANES] Frequency of Communication with Friends and Family: Patient declined Frequency of Social Gatherings with Friends and Family: Patient declined Attends Mosque Services: Patient declined Active Member of Clubs [...] significant stenosis. No flow seen in right GUN PERFORATOR, right SFA, right popliteal and both SULFONATION EQUIPMENT OPERATOR, possibility of their complete occlusion cannot be excluded. CT angiogram is advised for further evaluation. . Interpreting Radiology Company: [employer] ([employer] . Interpreting Doctor: Lita Ortiz MD . [...] 08/14: Stable Generalized weakness and deconditioning [facility] [...] system and there may be errors in product sales engineer. Despite proof reading the note, there may be mistakes and I apologize for those. By: Chris Chau, PAC, 08/14/2024 12:22 PM CDT documented in this encounter Plan of Treatment Upcoming Encounters Date Type Department Care Team (Late st Contact Info) Description 06/07/2025 11:00 AM CDT Office Visit [facility] - Primary Care - [place] [address] [place] [address] Artie Flynn MD [address] [place] [address] documented as of this encounter Visit Diagnoses Not on filedocumented in this encounter Additional Health Concerns Assessment Noted Time PHQ-9 Depression Total Score: 0 01/11/20 24 9:52 AM CDT documented as of this encounter Care Teams Forensic Examiner Relationship Specialty Start Date End Date Rob Mendoza MD #[address] [address] PCP - General Family Medicine 09/30/18 08/31/24 Teresa Ch MD [address] [place] [address] PCP - General Family Medicine 09/01/24 12/03/24 Artie Flynn MD [address] [place] [address] PCP - General Internal Medicine 12/04/24 Jasmin Kyle MD [address] [place] [address] Consulting Physician Dermatology 12/04/24 Chichi Gomez RN [place] Nurse Fruit And Vegetable Parer 01/01/25 documented as of this encounter
--- OUTSIDE RECORDS SUMMARY | 2025-01-16 00:40 | XMS_ITS | Encounter Summary ---
Author Organization [facility] Address [address] [facility] [place] [address] Phone Care Team Providers Care Band Attacher Name Role Phone Rob Mendoza MD Primary Care Provider [phone] Teresa Ch MD Primary Care Provider [phone] Jasmin Kyle MD Unavailable [phone] Artie Flynn MD Primary Care Provider [phone] Chichi Gomez RN Unavailable Unavailable Encounter Details Date Type Department Care Team (Late st Contact Info) Description 08/17/2024 Nursing Facility [facility] [address] [place] [address] Chris Chau, PAC [address] [place], [place] [id number] Social History Tobacco Use Types Packs/Day Years Used Date Smoking Tobacco: Former Cigarettes Q uit: 02/28/2014 Smokeless Tobacco: Never Alcohol Use Standard Drinks/Week Comments No 0 (1 standard drink = 0.6 oz pur e alcohol) [facility] Utilities Answer Date Recorded In the past 12 months has [employer], gas, oil, or water company threatened to [...] declined 06/30/2024 How often do you attend gnosticism or jew serv ices? Patient declined 06/30/2024 Do you belong to any clubs o r organizations such as gnosticism groups, unions, fraternal or athletic groups, or [...] 0 12/17 [facility] - Occupational Stress Questionnaire Answer Date Recorded [...] place to sleep or slept in a care home (including now)? No 01/11/2024 Housing Stability Vital [...] any time in the past [address] [facility], were you homeless or living in a care home (including now)? Patient declined 06/30/2024 Sexually Active Control Partners Comments Not Currently Comments No Sex and Gender Information Value Date Recorded Sex Assigned at Not on file Legal Sex Female 7:34 PM CDT Gender Identity Not on file Sexual Orientation Not on file documented as of this encounter Progress Notes * Chris Chau, PAC - 08/17/2024 1:07 PM CDT [facility] PROGRESS NOTE Nichelle Hunt is a 84 y.o. female at [facility]. Subjective: Interval History: I am [...] Session: Patient declined Stress: Patient Declined (06/30/2024) [employer] [place] [facility] - Occupational Stress Questionnaire Feeling of Stress : Patient declined Social Integration: Patient Declined (06/30/2024) Social Connection and Isolation Panel [NHANES] Frequency of Communication with Friends and Family: Patient declined Frequency of Social Gatherings with Friends and Family: Patient declined Attends Hinduism Services: Patient declined Active Member of Clubs [...] significant stenosis. No flow seen in right BUSINESS DEVELOPER, right SFA, right popliteal and both WOOD WINDOW AND DOOR CRAFTSMAN, possibility of their complete occlusion cannot be excluded. CT angiogram is advised for further evaluation. . Interpreting Radiology Company: [employer] (Flex) . Interpreting Doctor: Lita Ortiz MD [...] 08/17/2024 stable Generalized weakness and deconditioning Receiving detention care and physical therapy rehabilitation Right lower [...] system and there may be errors in fortune teller. Despite proof reading the note, there may be mistakes and I apologize for those. By: Chris Chau, PAC, 08/17/2024 1:08 PM CDT documented in this encounter Plan of Treatment Upcoming Encounters Date Type Department Care Team (Late st Contact Info) Description 06/07/2025 11:00 AM CDT Office Visit [facility] - Primary Care - [place] [address] [place] [address] Artie Flynn MD [address] [place] [address] documented as of this encounter Visit Diagnoses Not on filedocumented in this encounter Additional Health Concerns Assessment Noted Time PHQ-9 Depression Total Score: 0 01/11/20 9:52 AM CDT documented as of this encounter Care Teams Band Attacher Relationship Specialty Start Date End Date Rob Mendoza MD [address] [address] PCP - General Family Medicine 09/30/18 08/31/24 Teresa Ch MD [address] [place] [address] PCP - General Family Medicine 09/01/24 12/03/24 Artie Flynn MD [address] [place] [address] PCP - General Internal Medicine 12/04/24 [place] [address] [place] [address] Consulting Physician Dermatology 12/04/24 Chichi Gomez, RN [place] Nurse Shredder Tender 01/01/25 documented as of this encounter
--- OUTSIDE RECORDS SUMMARY | 2025-01-16 00:40 | XMS_ITS | Encounter Summary ---
Author Organization [facility] Address [address] [facility] [place] [address] Phone Care Team Providers Care Elephant Tamer Name Role Phone Rob Mendoza MD Primary Care Provider [phone] Chichi Gomez RN Unavailable Unavailable Phan Gómez MD Unavailable [phone] Teresa Ch MD Primary Care Provider [phone] Jasmin Kyle MD Unavailable [phone] Artie Flynn MD Primary Care Provider [phone] Chichi Gomez RN Unavailable Unavailable Reason for Visit * Reason Comments Medication Refill Encounter Details Date Type Department Care Team (Late st Contact Info) Description 07/16/2020 [facility]ill [facility] [address] [place] [address] Rob Mendoza MD [address] [address] Medication Refill Social History Tobacco Use Types [...] Description 06/07/2025 11:00 AM CDT Office Visit [facility] - Primary Care - [place] [address] [place] [address] Artie Flynn MD [address] [place] [address] documented as of this encounter Visit Diagnoses Not on filedocumented in this encounter Additional Health Concerns Assessment Noted Time PHQ-9 Depression Total Score: 0 01/24/20 19 10:00 AM CDT documented as of this encounter Care Teams Elephant Tamer Relationship Specialty Start Date End Date Rob Mendoza MD [address] [address] PCP - General Family Medicine 09/30/18 08/31/24 Phan Gómez MD [address] [place] [address] PCP - Hospice Attending Provider 06/30/24 07/03/24 Teresa Ch MD [address] [place] [address] PCP - General Family Medicine 09/01/24 12/03/24 Artie Flynn MD [address] [place] [address] PCP - General Internal Medicine 12/04/24 Chichi Gomez RN [place] Nurse Geotechnical Operating Engineer 01/05/24 07/03/24 Jasmin Kyle MD [address] [place] [address] Consulting Physician Dermatology 12/04/24 Chichi Gomez RN [place] Nurse Geotechnical Operating Engineer 01/01/25 documented as of this encounter
--- OUTSIDE RECORDS SUMMARY | 2025-01-16 00:40 | XMS_ITS | Encounter Summary ---
Author Organization [facility] Address [address] [place] [address] Phone Care Team Providers Care Retail Sales Teammate Name Role Phone Rob Mendoza MD Primary Care Provider [phone] Teresa Ch MD Primary Care Provider [phone] Jasmin Kyle MD Unavailable [phone] Artie Flynn MD Primary Care Provider [phone] Chichi Gomez RN Unavailable Unavailable Encounter Details Date Type Department Care Team (Late st Contact Info) Description 08/07/2024 Nursing [facility] [address] [place] [address] Chris Chau, PAC [address] [place], [place] [id number] Social History Tobacco Use Types Packs/Day Years Used Date Smoking Tobacco: Former Cigarettes Q uit: 02/28/2014 Smokeless Tobacco: Never Alcohol Use Standard Drinks/Week Comments No 0 (1 standard drink = 0.6 oz pur e alcohol) [facility] Utilities Answer Date Recorded In the past 12 months has [employer], gas, oil, or water company threatened to [...] declined 06/30/2024 How often do you attend restorationist or amish serv ices? Patient declined 06/30/2024 Do you belong to any clubs o r organizations such as restorationist groups, unions, fraternal or athletic groups, or [...] Total Score - Questions 1-9 0 12/17 [facility] Occupat ional [facility] - Occupational Stress Questionnaire Answer [...] place to sleep or slept in a penitentiary (including now)? No 01/11/2024 Housing Stability Vital [...] the past 12 m [facility], were you homeless or living in a penitentiary (including now)? Patient declined 06/30/2024 Sexually Active Control Partners Comments Not Currently Comments No Sex and Gender Information Value Date Recorded Sex Assigned at Not on file Legal Sex Female 7:34 PM CDT Gender Identity Not on file Sexual Orientation Not on file documented as of this encounter Progress Notes * Chris Chau, PAC - 08/07/2024 11:37 AM CDT [facility] PROGRESS NOTE Nichelle Hunt is a 84 y.o. female at [facility]. Subjective: Interval History: I [...] Patient declined Stress: Patient Declined (06/30/2024) [employer] [place] of Occupational Health - Occupational Stress Questionnaire Feeling of Stress : Patient declined Social Integration: Patient Declined (06/30/2024) Social Connection and Isolation Panel [NHANES] Frequency of Communication with Friends and Family: Patient declined Frequency of Social Gatherings with Friends and Family: Patient declined Attends Church Services: Patient declined Active Member of Clubs [...] significant stenosis. No flow seen in right STEAM ROOM ATTENDANT, right SFA, right popliteal and both PAINT FORMULATOR, possibility of their complete occlusion cannot be excluded. CT angiogram is advised for further evaluation. . Interpreting Radiology Company: [employer] (Flex) . Interpreting Doctor: Lita Ortiz MD [...] as tolerated Generalized weakness and deconditioning [facility] [...] this patient. This note was dictated using [employer]*Mev[employer] fluency dictation system and there may be errors in data security coordinator. Despite proof reading the note, there may be mistakes and I apologize for those. By: Chris Chau PAC, 08/07/2024 11:40 AM CDT documented in this encounter Plan of Treatment Upcoming Encounters Date Type Department Care Team (Late st Contact Info) Description 06/07/2025 11:00 AM CDT [facility] - [place] [address] [place] [address] Artie Flynn MD [address] [place] [address] documented as of this encounter Visit Diagnoses Not on filedocumented in this encounter Additional Health Concerns Assessment Noted Time PHQ-9 Depression Total Score: 0 01/11/20 24 9:52 AM CDT documented as of this encounter Care Teams Retail Sales Teammate Relationship Specialty Start Date End Date Rob Mendoza MD #[address] [address] PCP - General Family Medicine 09/30/18 08/31/24 Teresa Ch MD [address] [place] [address] PCP - General Family Medicine 09/01/24 12/03/24 Artie Flynn MD [address] [place] [address] PCP - General Internal Medicine 12/04/24 Jasmin Kyle MD [address] [place] [address] Consulting Physician Dermatology 12/04/24 Chichi Gomez RN [place] Nurse Donor Specialist 01/01/25 documented as of this encounter
--- OUTSIDE RECORDS SUMMARY | 2025-01-16 00:40 | XMS_ITS ---
Care Plan Created on: January 16, 2025 Nichelle Hunt : 1940 Sex: Female Author Organization [facility] Address [address], [address] [address] Phone Care Team Providers Care Account Receivable Associate Name Role Phone Jasmin Kyle MD Unavailable [phone] Artie Flynn MD Primary Care Provider [phone] Chichi Gomez RN Unavailable Unavailable Active Problems [...]
--- OUTSIDE RECORDS SUMMARY | 2025-01-16 00:40 | XMS_ITS | Encounter Summary ---
Author Organization [facility] Address [address] [facility] [place] [address] Care Team Providers Care Hearing Aid Consultant Name Role Phone Rob Mendoza MD Primary Care Provider [phone] Encounter Details Date Type Department Care Team (Late st Contact Info) Description 01/21/2024 Lab Requisition [facility] Derm[facility] Lab [address] [place] [address] [place] [address] [address] Social History Tobacco Use Types Packs/Day Years [...] AM CDT) Case Report Dermatopathology Report Case: [id number] Authorizing Provider: Rob Cazares MD Collected: 01/20/2024 03:33 AM Ordering Location: [facility] - Received: 01/21/2024 10:18 AM [...] of a non-oriented ellipse of skin measuring [id number] mm. The epidermal surface is unremarkable. The [...] characteristic determined by the Dermatopathology Laboratory at [facility], directed by Dr. Jenifer Casillas. These tests need not be, and therefore are not, approved by the [place] Food and Drug Administration. The tests are used for clinical purposes. Billing Codes Specimen Charges Stain Charges 86899 1 4 11:08 AM CDT DERMATOPATHOLOGY LABORATORY Embedded Images 4 11:08 AM CDT DERMATOPATHOLOGY LABORATORY Pathology/Cytolo gy TISSUE SPECIMEN FROM SKIN / Unknown 01/20/2024 3:33 AM CDT 01/21/2024 10:18 AM CDT Rob Cazares MD LAB - PATHOLOGY/CY TOLOGY ORDERABLES DERMATOPATHOLOGY LABORATORY [facility] - Department of Dermatology [facility] Specialized Medicine [address] [place] [address], [address] [phone] documented in this encounter Visit Diagnoses Not on filedocumented in this encounter Care Teams Hearing Aid Consultant Relationship Specialty Start Date End Date Rob Mendoza MD [address] [place] [address] PCP - General Family Medicine 01/31/24 documented as of this encounter
--- OUTSIDE RECORDS SUMMARY | 2025-01-16 00:40 | XMS_ITS | Encounter Summary ---
Author Organization [facility] Address [address] [place] [address] Phone Care Team Providers Care Irs Agent Name Role Phone Rob Mendoza MD Primary Care Provider [phone] Chichi Gomez RN Unavailable Unavailable Phan Gómez MD Unavailable [phone] Teresa Ch MD Primary Care Provider [phone] Jasmin Kyle MD Unavailable [phone] Artie Flynn MD Primary Care Provider [phone] Chichi Gomez RN Unavailable Unavailable Reason for Visit * Reason Comments Medication Refill Encounter Details Date Type Department Care Team (Late st Contact Info) Description 03/16/2024 Refill [facility] - Family Medicine [facility] [address] [place] [address] Rob Mendoza MD [address] [address] Medication Refill Social History Tobacco Use Types Packs/Day Years Used Date Smoking Tobacco: Former Cigarettes Q uit: 02/28/2014 Smokeless Tobacco: Never Alcohol Use Standard Drinks/Week Comments No 0 (1 standard drink = 0.6 oz pur e alcohol) [facility] Utilities Answer Date Recorded In the past 12 months has [employer], gas, oil, or water company threatened [...] often do you attend chur ch or quaker services? 1 to 4 times per year 01/11/2024 Do you belong to any clubs o r organizations such as orthodox groups, unions, fraternal or athletic groups, [...] Total Score - Questions 1-9 0 12/17 [facility] - Occupational Stress Questionnaire Answer [...] in a halfway (including now)? No 01/11/2024 Sexually Active Control [...] Tablet Controlled Release [Pharmacy Med Name: POTASSIUM [id number] ER TABLETS] 360 Tablet 0 Sig: Take [...] Description 06/07/2025 11:00 AM CDT Office Visit [facility] - Primary Care - [place] [address] [place] [address] Artie Flynn MD [address] [place] [address] documented as of this encounter Visit Diagnoses Not on filedocumented in this encounter Additional Health Concerns Assessment Noted Time PHQ-9 Depression Total Score: 0 01/11/20 9:52 AM CDT documented as of this encounter Care Teams Irs Agent Relationship Specialty Start Date End Date Rob Mendoza MD [address] [address] PCP - General Family Medicine 09/30/18 08/31/24 Phan Gómez MD [address] [place] [address] PCP - Hospice Attending Provider 06/30/24 07/03/24 Teresa Ch MD [address] [place] [address] PCP - General Family Medicine 09/01/24 12/03/24 Artie Flynn MD [address] [place] [address] PCP - General Internal Medicine 12/04/24 Chichi Gomez RN [place] Nurse Code Inspector 01/05/24 07/03/24 Jasmin Kyle MD [address] [place] [address] Consulting Physician Dermatology 12/04/24 Chichi Gomez RN [place] Nurse Code Inspector 01/01/25 documented as of this encounter
--- OUTSIDE RECORDS SUMMARY | 2025-01-16 00:40 | XMS_ITS | Encounter Summary ---
Author Organization [facility] Address [address] [facility] [place] [address] Phone Care Team Providers Care Banking Pin Adjuster Name Role Phone Rob Mendoza MD Primary Care Provider [phone] Teresa Ch MD Primary Care Provider [phone] Jasmin Kyle MD Unavailable [phone] Artie Flynn MD Primary Care Provider [phone] Chichi Gomez RN Unavailable Unavailable Encounter Details Date Type Department Care Team (Late st Contact Info) Description 08/25/2024 Nursing Facility [facility] [address] [place] [address] [place], DUTY MANAGER, BLANKING PRESS OPERATOR [address] [place] [address] Social History Tobacco Use Types Packs/Day Years Used Date Smoking Tobacco: Former Cigarettes Q uit: 02/28/2014 Smokeless Tobacco: Never Alcohol Use Standard Drinks/Week Comments No 0 (1 standard drink = 0.6 oz pur e alcohol) [facility] Utilities Answer Date Recorded In the past 12 months has [employer], gas, oil, or water [employer] threatened to shut off services in your home? Patient declined 06/30/2024 Social Connection and Isolation Panel [NHANES] A nswer Date Recorded In a typical week, how many times do you talk on the phone with family, friends, or neighbors? Patient declined 06/30/2024 How often do you get togethe r with friends or relatives? Patient declined 06/30/2024 How often do you attend advent or baptist serv ices? Patient declined 06/30/2024 Do you [...] Total Score - Questions 1-9 0 12/17 [facility] Occupat ional [facility] - Occupational Stress [...] any time in the past 12 m [facility], were you homeless or living [...] 06/07/2025 11:00 AM CDT Office Visit [facility] - Primary Care - [place] [address] [place] [id number] Artie Flynn MD [address] [place] [address] documented as of this encounter Visit Diagnoses Not on filedocumented in this encounter Additional Health Concerns Assessment Noted Time PHQ-9 Depression Total Score: 0 01/11/20 24 9:52 AM CDT documented as of this encounter Care Teams Banking Pin Adjuster Relationship Specialty Start Date End Date Rob Mendoza MD #[address] [address] PCP - General Family Medicine 09/30/18 08/31/24 Teresa Ch MD [address] [place] [address] PCP - General Family Medicine 09/01/24 12/03/24 Artie Flynn MD [address] [place] [address] PCP - General Internal Medicine 12/04/24 [place] [address] [place] [address] Consulting Physician Dermatology 12/04/24 Chichi Gomez, RN [place] Nurse Machinery Rigger 01/01/25 documented as of this encounter
--- OUTSIDE RECORDS SUMMARY | 2025-01-16 00:40 | XMS_ITS | Encounter Summary ---
Author Organization [facility] Address [address] [facility] [place] [address] Phone Care Team Providers Care Airport Maintenance Laborer Name Role Phone Jasmin Kyle MD Unavailable [phone] Artie Flynn MD Primary Care Provider [phone] Chichi Gomez RN Unavailable Unavailable Reason for Visit * Reason Onset Date Comments Advice Only 12/20/2024 Encounter Details Date Type Department Care Team (Late st Contact Info) Description 12/20/2024 Telephone [facility] [address] [place] [address] Artie Flynn MD [address] [place] [address] Advice Only Social History Tobacco Use Types Packs/Day Years Used Date Smoking Tobacco: Former Cigarettes Q uit: 02/28/2014 Smokeless Tobacco: Never Alcohol Use Standard Drinks/Week Comments No 0 (1 standard drink = 0.6 oz pur e alcohol) [facility] Utilities Answer Date Recorded In the past 12 months has [employer], gas, oil, or water company threatened [...] often do you attend chur ch or holiness services? More than 4 times per year 12/04/2024 Do you belong to any clubs o r organizations such as hindu groups, unions, fraternal or athletic groups, or [...] Total Score - Questions 1-9 0 11/18 [facility] Occupat ional Health - Occupational Stress [...] place to sleep or slept in a mcfp (including now)? No 01/11/2024 Housing Stability Vital [...] time in the past 12 m [facility], were you homeless or living in a mcfp (including now)? No 12/04/2024 Sexually Active Control Partners Comments Not Currently Comments No Sex and Gender Information Value Date Recorded Sex Assigned at Not on file Legal Sex Female 7:34 PM CDT Gender Identity Not on file Sexual Orientation Not on file documented as of this encounter Miscellaneous Notes * Telephone Encounter - Kimmy Ruiz RN - 12/20/2024 12:13 PM BUDGET TECHNICIAN Routing to Tori Pickard landscaping specialist. ET TECHNICIAN * Telephone Encounter - Bernie Hidalgo - 12/20/2024 12:02 PM CST call came in from [facility] for Nichelle Hunt a referral to a caregiver services home and it was sent to a plastic surgeon they just wanted to get the referral to the right office. Please check on it and get it to the right place Patient's PCP is Artie Flynn MD. Thank you. ET TECHNICIAN documented in this encounter Plan of Treatment Upcoming Encounters Date Type Department Care Team (Late st Contact Info) Description 06/07/2025 11:00 AM CDT Office Visit [facility] - Primary Care - [place] [address] [place] [address] Artie Flynn MD [address] [place] [address] documented as of this encounter Visit Diagnoses Not on filedocumented in this encounter Additional Health Concerns Assessment Noted Time PHQ-9 Depression Total Score: 0 12/04/19 1:05 PM BUDGET TECHNICIAN documented as of this encounter Care Teams Airport Maintenance Laborer Relationship Specialty Start Date End Date Artie Flynn MD [address] [place] [address] PCP - General Internal Medicine 12/04/24 Jasmin Kyle MD [facility] [place] [address] Consulting Physician Dermatology 12/04/24 Chichi Gomez RN [place] Nurse Road Tester 01/01/25 documented as of this encounter
--- OUTSIDE RECORDS SUMMARY | 2025-01-16 00:40 | XMS_ITS | Encounter Summary ---
Author Organization [facility] Address [address] [place] [address] Phone Care Team Providers Care Painter Drum Name Role Phone Rob Mendoza MD Primary Care Provider Chichi Gomez RN Unavailable Unavailable Phan Gómez MD Unavailable [phone] Teresa Ch MD Primary Care Provider [phone] Jasmin Kyle MD Unavailable [phone] Artie Flynn MD Primary Care Provider [phone] Chichi Gomez RN Unavailable Unavailable Reason for Visit * Reason Comments Medication Refill Encounter Details Date Type Department Care Team (Late st Contact Info) Description 08/05/2020 Refill [facility] [address] [place], [place] [id number] Rob Mendoza MD #[address] [address] Medication Refill Social History Tobacco Use Types [...] 11:00 AM CDT Office Visit [facility] - Primary Care - [place] [address] [place] [address] Artie Flynn MD [address] [place] [address] documented as of this encounter Visit Diagnoses Not on filedocumented in this encounter Additional Health Concerns Assessment Noted Time PHQ-9 Depression Total Score: 0 07/22/20 8:40 AM CDT documented as of this encounter Care Teams Painter Drum Relationship Specialty Start Date End Date Rob Mendoza MD #[address] [address] PCP - General Family Medicine 09/30/18 08/31/24 Phan Gómez MD [address] [place] [address] PCP - Hospice Attending Provider 06/30/24 07/03/24 Teresa Ch MD [address] [place] [address] PCP - General Family Medicine 09/01/24 12/03/24 Artie Flynn MD [address] [place] [address] PCP - General Internal Medicine 12/04/24 Chichi Gomez RN [place] Nurse Hood Fitter 01/05/24 07/03/24 [place] [address] [place] [address] Consulting Physician Dermatology 12/04/24 Chichi Gomez RN [place] Nurse Hood Fitter 01/01/25 documented as of this encounter
--- OUTSIDE RECORDS SUMMARY | 2025-01-16 00:41 | XMS_ITS | Encounter Summary ---
Author Organization [facility] Address [address] [place] [address] Phone Care Team Providers Care Aged Or Disabled Care Worker Name Role Phone Rob Mendoza MD Primary Care Provider [phone] Teresa Ch MD Primary Care Provider [phone] Jasmin Kyle MD Unavailable [phone] Artie Flynn MD Primary Care Provider [phone] Chichi Gomez RN Unavailable Unavailable Encounter Details Date Type Department Care Team (Late st Contact Info) Description 07/24/2024 Nursing Facility [facility] [address] [place] [address] Chris Chau, PAC [address] [place], [place] [id number] Social History Tobacco Use Types Packs/Day Years Used Date Smoking Tobacco: Former Cigarettes Q uit: 02/28/2014 Smokeless Tobacco: Never Alcohol Use Standard Drinks/Week Comments No 0 (1 standard drink = 0.6 oz pur e alcohol) [facility] Utilities Answer Date Recorded In the past 12 months has [employer], gas, oil, or water company threatened to [...] declined 06/30/2024 How often do you attend judaism or hinduism serv ices? Patient declined 06/30/2024 Do you belong to any clubs o r organizations such as judaism groups, unions, fraternal or athletic groups, or [...] Total Score - Questions 1-9 0 12/17 [facility] Occupat ional [facility] - Occupational Stress Questionnaire Answer [...] to sleep or slept in a senior care (including now)? No 01/11/2024 Housing Stability Vital [...] any time in the past 12 m [facility], were you homeless or living in a senior care (including now)? Patient declined 06/30/2024 Sexually Active Control Partners Comments Not Currently Comments No Sex and Gender Information Value Date Recorded Sex Assigned at Not on file Legal Sex Female 7:34 PM CDT Gender Identity Not on file Sexual Orientation Not on file documented as of this encounter Progress Notes * Chris Chau, PAC - 07/24/2024 6:06 PM CDT [facility] LONG [facility]M PROGRESS NOTE Nichelle Hunt is a 84 y.o. female at [facility]. Subjective: Interval History: I [...] Session: Patient declined Stress: Patient Declined (06/30/2024) [place] [facility] - Occupational Stress Questionnaire Feeling of Stress : Patient declined Social Integration: Patient Declined (06/30/2024) Social Connection and Isolation Panel [NHANES] Frequency of Communication with Friends and Family: Patient declined Frequency of Social Gatherings with Friends and Family: Patient declined Attends Orthodoxy Services: Patient declined Active Member of Clubs [...] significant stenosis. No flow seen in right GASATERIA ATTENDANT, right SFA, right popliteal and both BITE BLOCK MAKER, possibility of their complete occlusion cannot be excluded. CT angiogram is advised for further evaluation. . Interpreting Radiology Company: [employer] ([employer]) . Interpreting Doctor: Lita Ortiz MD . [...] very closely. Generalized weakness and deconditioning Receiving custodial care and physical therapy rehabilitation Right lower [...] system and there may be errors in aircraft tool maker. Despite proof reading the note, there may be mistakes and I apologize for those. By: BURT Styles, 07/24/2024 6:06 PM CDT documented in this encounter Plan of Treatment Upcoming Encounters Date Type Department Care Team (Late st Contact Info) Description 06/07/2025 11:00 AM CDT Office [facility] - Primary Care - [place] [address] [place] [address] Artie Flynn MD [address] [place] [address] documented as of this encounter Visit Diagnoses Not on filedocumented in this encounter Additional Health Concerns Assessment Noted Time PHQ-9 Depression Total Score: 0 01/11/20 9:52 AM CDT documented as of this encounter Care Teams Aged Or Disabled Care Worker Relationship Specialty Start Date End Date Rob Mendoza MD #[address] [address] PCP - General Family Medicine 09/30/18 08/31/24 Teresa Ch MD [address] [place] [address] PCP - General Family Medicine 09/01/24 12/03/24 Artie Flynn MD [address] [place] [address] PCP - General Internal Medicine 12/04/24 Jasmin Kyle MD [address] [place] [address] Consulting Physician Dermatology 12/04/24 Chichi Gomez, RN [place] Nurse Licensed Psychologist Manager 01/01/25 documented as of this encounter
--- OUTSIDE RECORDS SUMMARY | 2025-01-16 00:41 | XMS_ITS | Encounter Summary ---
Author Organization [facility] Address [address] [facility] [place] [address] Phone Care Team Providers Care Instructor Military Science Name Role Phone Rob Mendoza MD Primary Care Provider [phone] Teresa Ch MD Primary Care Provider [phone] Jasmin Kyle MD Unavailable [phone] Artie Flynn MD Primary Care Provider [phone] Chichi Gomez RN Unavailable Unavailable Encounter Details Date Type Department Care Team (Late st Contact Info) Description 07/07/2024 Nursing Facility [facility] [address] [place] [address] Elvia Banks MD [address] [place] [address] Social History Tobacco Use Types Packs/Day Years Used Date Smoking Tobacco: Former Cigarettes Q uit: 02/28/2014 Smokeless Tobacco: Never Alcohol Use Standard Drinks/Week Comments No 0 (1 standard drink = 0.6 oz pur e alcohol) [facility] Utilities Answer Date Recorded In the past 12 months has [employer], gas, oil, or water company threatened to [...] declined 06/30/2024 How often do you attend hoahaoism or sikh serv ices? Patient declined 06/30/2024 Do you belong to any clubs o r organizations such as hoahaoism groups, unions, fraternal or athletic groups, or [...] Total Score - Questions 1-9 0 12/17 [facility] Occupat ional [facility] - Occupational Stress Questionnaire Answer [...] place to sleep or slept in a detention (including now)? No 01/11/2024 Housing Stability Vital [...] time in the past 12 m [facility], were you homeless or living in a detention (including now)? Patient declined 06/30/2024 Sexually Active [...] 06/07/2025 11:00 AM CDT Office Visit [facility] - Primary Care - [place] [address] [place] [phone] Artie Flynn MD [address] [place] [address] documented as of this encounter Visit Diagnoses Not on filedocumented in this encounter Additional Health Concerns Assessment Noted Time PHQ-9 Depression Total Score: 0 01/11/20 24 9:52 AM CDT documented as of this encounter Care Teams Instructor Military Science Relationship Specialty Start Date End Date Rob Mendoza MD #[address] [address] PCP - General Family Medicine 09/30/18 08/31/24 Teresa Ch MD [address] [place] [address] PCP - General Family Medicine 09/01/24 12/03/24 Artie Flynn MD [address] [place] [address] PCP - General Internal Medicine 12/04/24 [place] [address] [place] [address] Consulting Physician Dermatology 12/04/24 Chichi Gomez RN [place] Nurse Joinery Setter Out 01/01/25 documented as of this encounter
--- OUTSIDE RECORDS SUMMARY | 2025-01-16 00:41 | XMS_ITS | Encounter Summary ---
Author Organization [facility] Address [address] [facility] [place] [address] Phone Care Team Providers Care Teamsite Developer Name Role Phone Rob Mendoza MD Primary Care Provider [phone] Teresa Ch MD Primary Care Provider [phone] Jasmin Kyle MD Unavailable [phone] Artie Flynn MD Primary Care Provider [phone] Chichi Gomez RN Unavailable Unavailable Encounter Details Date Type Department Care Team (Late st Contact Info) Description 07/10/2024 Nursing Facility [facility] [address] [place] [address] Chris Chau, PAC [address] [place], [place] [id number] Social History Tobacco Use Types Packs/Day Years Used Date Smoking Tobacco: Former Cigarettes Q uit: 02/28/2014 Smokeless Tobacco: Never Alcohol Use Standard Drinks/Week Comments No 0 (1 standard drink = 0.6 oz pur e alcohol) [facility] Utilities Answer Date Recorded In the past 12 months has [employer], gas, oil, or water company threatened to [...] declined 06/30/2024 How often do you attend rastafarian or denominational serv ices? Patient declined 06/30/2024 Do you belong to any clubs o r organizations such as rastafarian groups, unions, fraternal or athletic groups, or [...] Total Score - Questions 1-9 0 12/17 [facility] Occupat ional [facility] - Occupational Stress Questionnaire Answer Date [...] any time in the past 12 m [facility], were you homeless or living in [...] - 07/10/2024 12:09 PM CDT [facility] PROGRESS NOTE Nichelle Hunt is a 84 y.o. female at [facility] facility for rehabilitation. Subjective: [...] Session: Patient declined Stress: Patient Declined (06/30/2024) [place] [facility] Occupational Health - Occupational Stress Questionnaire Feeling of Stress : Patient declined Social Integration: Patient Declined (06/30/2024) Social Connection and Isolation Panel [NHANES] Frequency of Communication with Friends and Family: Patient declined Frequency of Social Gatherings with Friends and Family: Patient declined Attends Lutheran Services: Patient declined Active Member of Clubs [...] None Assessment/Plan: Generalized weakness and deconditioning Receiving intermediate care [...] system and there may be errors in nuclear fuel enrichment technician. Despite proof reading the note, there may be mistakes and I apologize for those. By: BURT Styles, 07/10/2024 12:09 PM CDT documented in this encounter Plan of Treatment Upcoming Encounters Date Type Department Care Team (Late st Contact Info) Description 06/07/2025 11:00 AM CDT Office Visit [facility] - Primary Care - [place] [address] [place] [address] Artie Flynn MD [address] [place] [address] documented as of this encounter Visit Diagnoses Not on filedocumented in this encounter Additional Health Concerns Assessment Noted Time PHQ-9 Depression Total Score: 0 01/11/20 9:52 AM CDT documented as of this encounter Care Teams Teamsite Developer Relationship Specialty Start Date End Date Rob Mendoza MD #[address] [address] PCP - General Family Medicine 09/30/18 08/31/24 Teresa Ch MD [address] [place] [address] PCP - General Family Medicine 09/01/24 12/03/24 Artie Flynn MD [address] [place] [address] PCP - General Internal Medicine 12/04/24 Jasmin Kyle MD [address] [place] [address] Consulting Physician Dermatology 12/04/24 Chichi Gomez RN [place] Nurse Revenue Accountant 01/01/25 documented as of this encounter
--- OUTSIDE RECORDS SUMMARY | 2025-01-16 00:41 | XMS_ITS | Encounter Summary ---
Author Organization [facility] Address [address] [facility] [place] [address] Phone Care Team Providers Care Homicide Squad Commanding Officer Name Role Phone Rob Mendoza MD Primary Care Provider [phone] Tereas Ch MD Primary Care Provider [phone] Jasmin Kyle MD Unavailable [phone] Artie Flynn MD Primary Care Provider [phone] Chichi Gomez RN Unavailable Unavailable Reason for Referral * Radiology Services (Less Than 3 Days) - Closed Specialty Diagnoses / Procedures Referred By Contjustus t Referred To Contact Radiology Diagnoses Peripheral arterial disease (HCC) Procedures CT ANGIO BILAT ABD AORTA ILIOFEMORAL W/WO Chris Chau PAC Phone: tel: fax: Referral ID Status Reason Start Date Expiration Date Visits Re quested Visits Authorized [id number] Closed 07/17/2024 1 1 Encounter Details Date Type Department Care Team (Late st Contact Info) Description 07/17/2024 [facility] [address] [place] [address] Chris Chau, PAC [address] [place] [address] Peripheral arterial disease (HCC) (Primary Dx) Social History Tobacco Use Types Packs/Day Years Used Date Smoking Tobacco: Former Cigarettes Q uit: 02/28/2014 Smokeless Tobacco: Never Alcohol Use Standard Drinks/Week Comments No 0 (1 standard drink = 0.6 oz pur e alcohol) [facility] Utilities Answer Date Recorded In the [...] declined 06/30/2024 How often do you attend shinto or temple serv ices? Patient declined 06/30/2024 Do you belong to any clubs o r organizations such as shinto groups, unions, fraternal or athletic groups, or [...] Total Score - Questions 1-9 0 12/17 [place] of Occupat ional Health - Occupational Stress [...] any time in the past 12 m [facility], were you homeless or living [...] - 07/17/2024 1:33 PM CDT [facility] HALFWAY PROGRESS NOTE Nichelle Hunt is a 84 y.o. female at [facility] for [facility]. Subjective: Interval History: I [...] Session: Patient declined Stress: Patient Declined (06/30/2024) [place] of Occupational Health - Occupational Stress Questionnaire Feeling of Stress : Patient declined Social Integration: Patient Declined (06/30/2024) Social Connection and Isolation Panel [NHANES] Frequency of Communication with Friends and Family: Patient declined Frequency of Social Gatherings with Friends and Family: Patient declined Attends Mandaeism Services: Patient declined Active Member of Clubs [...] significant stenosis. No flow seen in right MARKETING EXECUTIVE, right SFA, right popliteal and both CASH APPLICATIONS ASSOCIATE, possibility of their complete occlusion cannot be excluded. CT angiogram is advised for further evaluation. . Interpreting Radiology Company: [employer]) . Interpreting Doctor: Lita Ortiz MD . Electronically Signed By: Lita Ortiz MD . Signed Date: Physician electronically signed on - 07/14/2024 09:22:35 PM Assessment/Plan: Generalized weakness and deconditioning Receiving intermediate [...] system and there may be errors in mohs surgeon. Despite proof reading the note, there may be mistakes and I apologize for those. By: BURT Styles, 07/17/2024 1:33 PM CDT documented in this encounter Plan of Treatment Upcoming Encounters Date Type Department Care Team (Late st Contact Info) Description 06/07/2025 11:00 AM CDT Office Visit [facility] - Primary Care - [address] [place] [address] Artie Flynn MD [address] [place] [address] documented as of this encounter Procedures Procedure [...] Claude Segovia M.D. NS: NS Report ID: [id number] Reading Location: [id number] Procedure Note Jean Claude Segovia MD - [...] Claude Segovia M.D. NS: NS Report ID: [id number] Reading Location: [place] [address] IMPRESSION: 1. Bilateral continuous three-vessel runoff to [...] documented as of this encounter Care Teams Homicide Squad Commanding Officer Relationship Specialty Start Date End Date Rob Mendoza MD #[address] [address] PCP - General Family Medicine 09/30/18 08/31/24 Teresa Ch MD [address] [place] [address] PCP - General Family Medicine 09/01/24 12/03/24 Artie Flynn MD [address] [place] [address] PCP - General Internal Medicine 12/04/24 Jasmin Kyle MD [address] [place] [address] Consulting Physician Dermatology 12/04/24 Chichi Gomez RN [place] Nurse Lead Level Designer 01/01/25 documented as of this encounter
--- OUTSIDE RECORDS SUMMARY | 2025-01-16 00:41 | XMS_ITS | Clinical Summary ---
Author Organization [facility] Address [address], [address] [address] Phone Care Team Providers Care Activities Attendant Name Role Phone Jasmin Kyle MD Unavailable [phone] Artie Flynn MD Primary Care Provider [phone] Chichi Gomez RN Unavailable Unavailable Allergies Active [...] 10:00 AM CDT Patient Outreach [facility] Knitting Machine Mechanic Management [address] [place] [address] Chcihi Gomez, RN Care Management (CM RN Enrollment) 01/09/2025 Plan of Care Documentation [facility]itting [facility] Mechanic Management [address] [place] [address] 01/05/2025 [facility] [address] [place] [address] Chichi Gomez, RN Care Management 01/01/2025 [facility] Mechanic Management [address] [place] [address] Chichi Gomez, RN Patient Outreach (High Risk MSSP) 12/20/2024 Telephone [facility] [address] [place] [address] Artie Flynn MD Advice Only 12/04/2024 1:00 PM PRECISION OPTICS TECHNICIAN Office Visit [facility] Primary Care [facility] [address] [place] [address] Artie Flynn MD Hypertension, essential (Primary Dx); Mixed hyperlipidemia; Hypothyroidism due to acquired atrophy of thyroid; Arthritis; Stage 3b chronic kidney disease (HCC); Tinea corporis; Squamous cell carcinoma, face; Encounter for vaccination Discharge Disposition: Discharged to home or Selfcare 12/04/2024 Travel 11/24/2024 Telephone [facility] [address] [place] [address] Artie Flynn MD 11/17/2024 Refill [facility] [address] [place] [address] Rob Mendoza MD Medication Refill [...] Valent 9 Pneumococcal conjugate PCV20 , polysaccharide NNC728 conjugate, adjuvant, PF 09/01/2024 TD VACCINE 12/16/2008 [...] Recorded In the past 12 months has [employer], gas, oil, or water [employer] threatened to shut off services in your [...] often do you attend chur ch or worship services? 1 to 4 times per year [...] Score - Questions 1-9 0 12/17 [facility] of Occupat ional Health - Occupational [...] place to sleep or slept in a half-way (including now)? No 01/11/2024 Housing Stability Vital [...] were you homeless or living in a half-way (including now)? No 01/09/2025 Sexually Active Control Partners Comments Not Currently Comments No Sex and Gender Information Value Date Recorded Sex Assigned at Not on file Legal Sex Female 7:34 PM CDT Gender Identity Not on file Sexual Orientation Not on file Last Filed Vital Signs Vital Sign Reading Time Taken Comments Blood Pressure 154/58 12/04/2024 12:58 PM PRECISION OPTICS TECHNICIAN Pulse 77 12/04/2024 12:58 PM PRECISION OPTICS TECHNICIAN Temperature 36.1 C (97 F) 12/04/2024 12:58 PM PRECISION OPTICS TECHNICIAN Respiratory Rate 20 12/04/2024 12:5 8 PM PRECISION OPTICS TECHNICIAN Oxygen Saturation 99% 12/04/2024 12: 58 PM PRECISION OPTICS TECHNICIAN Inhaled Oxygen Concentration - - Weight 91.9 kg (202 lb 11.2 oz) 025 12:58 PM PRECISION OPTICS TECHNICIAN Height 162.6 cm (5' 4 ) 12/04/2024 12:5 8 PM PRECISION OPTICS TECHNICIAN Body Mass Index 34.79 12/04/2024 12:58 PM PRECISION OPTICS TECHNICIAN Plan of Treatment Upcoming Encounters Date Type Department Care Team (Late st Contact Info) Description 06/07/2025 11:00 AM CDT [facility] - Primary Care - [place] [address] [place] [phone] Artie Flynn MD [address] [place] [address] Health Maintenance Due Date Last Done Comments [...] Activity and Exercise (Wellness) 01/09/2025 [place] [id number] [facility] * Guarantor: [facility] Account Type Relation to Patient Date of Phone Billing Address Institutional Other [address] [place] [phone] Advance Directives Documents on File Type Date Recorded Patient Embossograph Operator Expl anation POLST/POST/[place] DNR 06/30/2024 10:37 AM POLS T, 06/30/2024 Power of Doughnut Glazier for Health Care 01/11/2024 12:13 PM POWER OF WEBSITE PROGRAMMER FO R HEALTH CARE Living Will 01/11/2024 [...] Agents on File Name Relationship Healthcare Agent [facility] Communication [facility] Healthcare POA Care Teams Activities Attendant Relationship Specialty Start Date End Date Artie Flynn MD [address] [place] [address] PCP - General Internal Medicine 12/04/24 Jasmin Kyle MD [address] [place] [address] Consulting Physician Dermatology 12/04/24 Chichi Gomez RN [place] Nurse Change Attendant 01/01/25
--- OUTSIDE RECORDS SUMMARY | 2025-01-16 00:41 | XMS_ITS | Encounter Summary ---
Author Organization [facility] Address [address] [facility] [place] [address] Phone Care Team Providers Care Fitter Hand Name Role Phone Rob Mendoza MD Primary Care Provider [phone] Teresa Ch MD Primary Care Provider [phone] Jasmin Kyle MD Unavailable [phone] Artie Flynn MD Primary Care Provider [phone] Chichi Gomez RN Unavailable Unavailable Encounter Details Date Type Department Care Team (Late st Contact Info) Description 08/02/2024 Nursing Facility [facility] [address] [place] [address] Chris Chau, PAC [address], [place] [id number] Social History Tobacco Use Types Packs/Day Years Used Date Smoking Tobacco: Former Cigarettes Q uit: 02/28/2014 Smokeless Tobacco: Never Alcohol Use Standard Drinks/Week Comments No 0 (1 standard drink = 0.6 oz pur e alcohol) [facility] Utilities Answer Date Recorded In the past 12 months has [employer], gas, oil, or water company threatened to [...] How often do you attend muslim or sikh serv ices? Patient declined 06/30/2024 [...] Total Score - Questions 1-9 0 12/17 [facility] Occupat ional [facility] - Occupational Stress Questionnaire Answer Date [...] any time in the past 12 m [facility], were you homeless or living in [...] - 08/02/2024 3:00 PM CDT [facility] PROGRESS NOTE Nichelle Hunt is a 84 y.o. female at [facility]. Subjective: Interval History: [...] Session: Patient declined Stress: Patient Declined (06/30/2024) [facility] [place] [facility] - Occupational Stress Questionnaire [...] significant stenosis. No flow seen in right PAINT BOOTH OPERATOR, right SFA, right popliteal and both INTERNAL AUDIT SENIOR MANAGER, possibility of their complete occlusion cannot be excluded. CT angiogram is advised for further evaluation. . Interpreting Radiology Company: [employer]) . Interpreting Doctor: Lita Ortiz MD [...] are improving. Generalized weakness and deconditioning Receiving shelter care and physical therapy rehabilitation Right lower [...] system and there may be errors in senior behavioral scientist. Despite proof reading the note, there may be mistakes and I apologize for those. By: BURT Styles, 08/02/2024 3:00 PM CDT documented in this encounter Plan of Treatment Upcoming Encounters Date Type Department Care Team (Late st Contact Info) Description 06/07/2025 11:00 AM CDT Office Visit [facility] - Primary Care - [place] [address] [place] [address] Artie Flynn MD [address] [place] [address] documented as of this encounter Visit Diagnoses Not on filedocumented in this encounter Additional Health Concerns Assessment Noted Time PHQ-9 Depression Total Score: 0 01/11/20 9:52 AM CDT documented as of this encounter Care Teams Fitter Hand Relationship Specialty Start Date End Date Rob Mendoza MD #[address] [address] PCP - General Family Medicine 09/30/18 08/31/24 Teresa Ch MD [address] [place] [address] PCP - General Family Medicine 09/01/24 12/03/24 Artie Flynn MD [address] [place] [address] PCP - General Internal Medicine 12/04/24 [place] [address] [place] [address] Consulting Physician Dermatology 12/04/24 Chichi Gomez, RN [place] Nurse Hemstitcher 01/01/25 documented as of this encounter
--- NOTE | 2025-01-16 07:10 | WPDHPUPDATE1 ---
History and Physical Update Update Date/Time: 01/16/25 07:10 Patient seen and examined in pre-operative holding area. No interval change in medical history or symptoms. Patient recalls previous discussion of benefits and alternatives to procedure. Continues to desire to proceed with excision left paranasal mass and integra placement . Reviewed procedure, post-op expectations and risks including but not limited to bleeding, infection, injury to /nerve/vessel, partial/total graft loss, recurrence, incomplete resection. I discussed the possible use of assistants and their participation in the case. Patient stated understanding and signed the consent form wishing to proceed.
--- NOTE | 2025-01-16 07:10 | W.PM.PROC2 ---
Procedure Note - Detailed Date of Procedure 01/16/25 Pre-op Diagnosis squamous cell skin CA Post-op Diagnosis Same Procedure Performed excision left nasal/cheek lesion with complex closure and integra placement Surgeon Augie Mantilla MD Administrative And Program Specialist annalisa lima pa-c Anesthesia MAC Description of Procedure Patient was seen in the preoperative holding area where the consent form was signed in the skin lesion was marked. Patient was taken back to the operating room on the stretcher in the supine position. Time-out was performed with Anesthesia, surgeon, and staff agreeing on patient's name, site, surgery to be performed. SCDs were placed on the lower extremities and inflated. Antibiotics were given IV. After general anesthesia was administered area was prepped and draped in usual sterile fashion. The large protuberant and centrally necrotic and fungating measure previously biopsied as squamous cell carcinoma measured 4.5 x 3 cm and involved the left nasal sidewall, left nasal ala and left cheek. I injected 6 cc of 1% lidocaine with epinephrine and 0.5% Marcaine plain for local anesthesia. Proceeded with radical excision around this mass using a 5 mm margin through skin and dermis with a 15 blade scalpel. The deep margin of the mass appeared to involve or closely abut the upper lateral cartilage and nasal bone periosteum, left lower alar cartilage and orbicularis oculi. This mass was resected EN bloc except for a friable, necrotic central aspect which required secondary excision of these deeper structures and was sent for deep margin to pathology. I next proceeded with taking additional superior, inferior, medial, and lateral margins to send for frozen section. I irrigated with normal saline and hemostasis with Bovie cautery. The resulting defect measured 5 x 4.5 cm. Once frozen sections results were read as no malignancy seen, I further evaluated the open wound and proceeded with elevating skin edges at the inferior aspect and partial closure with 3-0 Vicryl and 4-0 nylon suture to reduce the size of the defect and improved contour of the nasal labial fold. Additional skin was excised inferiorly for dog-ear management. This area of closure measured 2 cm. For the remaining wound I proceeded with sewing in a piece of bi-layered Integra matrix with 3-0, 4-0 nylon and 5 0 chromic suture. The Integra was also quilted with 4-0 chromic mattress stitches along the naso labial border to help improve contour. I then fashioned a bolster of Xeroform and cotton balls that was sutured into place utilizing the previously placed nylon sutures. The eye was irrigated with BSS. A dressing of 4 x 4 and tape was then applied. The patient was awakened from anesthesia and transferred to the recovery room in stable condition. Complications: None Estimated blood loss: 8 cc Disposition: Patient tolerated the procedure well and will go home later today Rohan Lima PA-C was essential for positioning, retraction closure and dressing placement [facility] Billing Surgery - Charge Forward: Surgery Billing ([id number] same for rohan adding modifier )
--- NOTE | 2025-01-16 09:01 | WPDANESEPPF ---
Anes - Initial Pre Proc Eval Procedure: Operation Date: 01/16/25 11:00 Proposed Procedures p Excision Squamous Carcinoma Left Cheek and Nasal Lesion with Frozen Section, Integra Placement - Augie Mantilla MD Date/Time: 01/16/25 09:01 Surgeon: Augie Mantilla MD Pre Op Diagnosis: squamous cell skin CA Patient Data Age: 84 Gender: F Height: 1.6 m Weight: 85 kg Allergies Allergy/AdvReac Type Severity Reaction Status Date / Time acetaminophen (From Vicodin) AdvReac Intermediate Nausea and Verified 01/10/25 12:47 Vomiting hydrocodone (From Vicodin) AdvReac Intermediate Nausea and Verified 01/10/25 12:47 Vomiting peanuts Allergy Intermediate gout flare Uncoded 01/10/25 12:47 up Home Medications ?Medication ?Instructions ?Recorded ?Confirmed ?Type acetaminophen 500 mg capsule 1,000 mg PO BID PRN pain 01/10/25 01/10/25 History albuterol sulfate 90 mcg/actuation 2 inh inhalation Q8H PRN shortness 01/10/25 01/10/25 History aerosol inhaler of breath or wheezing allopurinol 300 mg tablet 300 mg PO DAILY 01/10/25 01/10/25 History budesonide-formoterol HFA 160 2 inh inhalation Q12H 01/10/25 01/10/25 History mcg-4.5 mcg/actuation aerosol inhaler (Symbicort) bumetanide 2 mg tablet 2 mg PO DAILY 01/10/25 01/10/25 History clopidogrel 75 mg tablet 75 mg PO DAILY 01/10/25 01/10/25 History fenofibrate 54 mg tablet 54 mg PO DAILY 01/10/25 01/10/25 History fenofibrate 54 mg tablet 54 mg PO DAILY 01/10/25 01/10/25 History gabapentin 100 mg capsule 100 mg PO TID 01/10/25 01/10/25 History levothyroxine 50 mcg tablet 50 mcg PO DAILY 01/10/25 01/10/25 History nitroglycerin 0.4 mg sublingual 0.4 mg sublingual Q5M PRN chest 01/10/25 01/10/25 History tablet pain potassium chloride 20 mEq 40 meq PO BID 01/10/25 01/10/25 History tablet,extended release(part/cryst) Patient hx anesthesia problems: none Family hx anesthesia problems: none Results Review: All pre-operative results and documents have been reviewed as part of the pre-operative evaluation. [facility] Social History Social History Smoking packs per day: 0.5 Smoking cigarettes per day: 10.0 Years smoked: 30 Smoking pack-years: 15.00 Smoking status: Former smoker Smoking end date: 10/18/13 Alcohol intake: never Substance use: never Living arrangements: alone Spiritual care concerns: No Anes - Eval Final PreProcedure Day of Procedure 01/16/25 09:01 Patient weight: obese Lungs: normal air movement Airway: Mallampati scale class II and special considerations (Edentulous. ) Neurological: alert and oriented Last oral intake: >/= 8 hours ASA classification: III Emergent: no Anesthetic plan: proceed Anesthesia type and monitoring: general LMA and standard monitoring Results Review: All pre-operative results and documents have been reviewed as part of the pre-operative evaluation. Hx CVA w mild L residual weakness, s/p PTCA 2002 JOHNY x 1, asthma, CKD 3. Pt w overall fair exercise melvin without cp or sob. Informed Consent: The patient's anesthetic plan and its attendant risks and benefits were discussed with the patient/family/POA. Questions were solicited and answers provided to the satisfaction of the patient/family/POA.
[2025-01-16] MEDS: LACTATED RINGERS 1,000 ML 30 ML IV CONT (09:35)
[2025-01-16] MEDS: ceFAZolin 2 GM/D5W 50 ML 2 GM/50 ML BAG IVPB (10:16)
[2025-01-16] MEDS: LIDO 1%/EPINEPHRINE 1:100,000 50 ML VIAL 20 ML INFILTRATE (10:33)
[2025-01-16] MEDS: CELLULOSE OXIDIZED 2 x 3 INCH 1 PKT XX (10:47)
[2025-01-16] MEDS: ARTIFICIAL TEARS OPHTH SOLN 15 ML BOTTLE 1 DROP EACH EYE (13:19)
== END 2025-01-16 13:39 | disposition home or self-care (01) ==
PROVIDERS: PCP Internal Medicine; Visit Provider Plastic Surgery
PROC: (CPT 21016; principal; 2025-01-16 11:00)
DX: C44.329 Squamous cell carcinoma of skin of other parts of face (principal); L30.8 Other specified dermatitis; L90.5 Scar conditions and fibrosis of skin; N18.30 Chronic kidney disease, stage 3 unspecified; I25.10 Atherosclerotic heart disease of native coronary artery without angina pectoris; J45.909 Unspecified asthma, uncomplicated; E66.9 Obesity, unspecified; Z68.32 Body mass index [BMI] 32.0-32.9, adult; Z79.51 Long term (current) use of inhaled steroids; Z79.02 Long term (current) use of antithrombotics/antiplatelets; Z87.891 Personal history of nicotine dependence
CPT/HCPCS: 21016; 13151; 15275; 88305; 88331; A9270; C9363; J0690; J2003; J2004; J2405; J2704; J3010; J7120

== ENCOUNTER 2025-03-02 00:05 | Day surgery (SDC) | payer MEDICARE, SELFPAY ==
[2025-02-20 08:33] VITALS: BMI 34.3
--- NOTE | 2025-02-20 08:42 | PC.NURSE ---
Report to the Outpatient Waiting Room, entrance under the green pavilion located off [facility], at time __10:45am on date _03/02/25 . Planned Procedure Time: _12:45pm . Time changes happen often and if your time is changed the preop area will call you the afternoon before. - You and your visitor will be asked to self-screen and do not enter if you have any COVID symptoms. Please call surgeon if you need to reschedule. - A mask is optional within the hospital at this time. Patients may - No food or drink from midnight until time of surgery and no smoking, or chewing tobacco (or any form of nicotine). No chewing gum, candy or mints. Take only the following medications with a SIP of water on the morning of surgery: ___Metoprolol, Levothyroxine, Gabapentin, Tylenol and Inhalers - Probiotic as ordered by Dr Mantilla PREOP DO NOT STOP ANY OF YOUR OTHER PRESCRIPTION MEDICATIONS PRIOR TO SURGERY EXCEPT THE FOLLOWING Hold all vitamins and supplements & also Plavix until post op per Dr Mantilla Medications to discontinue per physician ALL on HOLD PLAVIX, MVI, SUPPLEMENTS, EYE DROPS Date to take last dose CONT TO HOLD Please no make-up, nail tristanian, hairspray, perfume, deodorant, or body powder the day of surgery. No jewelry (including any body piercings) or valuables the day of surgery, leave them at home. Please take a shower or bath the night before, or the morning of, surgery with an antibacterial soap. Wear comfortable, loose fitting clothing. - Jewelry must be removed prior to entering the operating room. Rings and piercings that are not removed may be cut off. - The hospital will not accept responsibility for valuables. - Please leave all valuables, including medications, at home the day of surgery. If you are going home after surgery, a licensed pile driver must drive you home. - NO public transportation without another adult if you receive anesthesia. - We recommend that an adult stay with you for 24 hours following discharge. - We also recommend that you do not drive, make important decision, drink alcoholic beverages, or take any drugs that were not prescribed by your health care provider for at least 24 hours after your discharge time. Follow any additional instructions given to you from your surgeon. Telephone instructions given to ___Patient and asked if any additional questions and then verbalized understanding. Patient advised to call surgeon office or pre surgery nurse liaison [phone] if any additional questions.
[2025-03-02] VITALS (8 sets, daily range): BP systolic 122–155; BP diastolic 48–64; PULSE 60–69; RESP 16–20; TEMP 36.4–36.6; O2SAT 94–100; BMI 35.2
--- OUTSIDE RECORDS SUMMARY | 2025-03-02 00:08 | XMS_ITS | Encounter Summary ---
Author Organization [facility] Address [address] [facility] [place] [address] Phone Care Team Providers Care House Principal Name Role Phone Rob Mendoza MD Primary Care Provider [phone] Teresa Ch MD Primary Care Provider [phone] Jasmin Kyle MD Unavailable [phone] Artie Flynn MD Primary Care Provider [phone] Chichi Gomez RN Unavailable Unavailable Krish Benavides MD Unavailable [phone] Augie Mantilla MD Unavailable [phone] Encounter Details Date Type Department Care Team (Late st Contact Info) Description 08/14/2024 Nursing Facility [facility] [address] [place] [address] Chris Chau, [address] [id number] Social History Tobacco Use Types Packs/Day Years Used Date Smoking Tobacco: Former Cigarettes Q uit: 02/28/2014 Smokeless Tobacco: Never Alcohol Use Standard Drinks/Week Comments No 0 (1 standard drink = 0.6 oz pur e alcohol) [facility] Utilities Answer Date Recorded In the past 12 months has e electric, gas, oil, or water company [...] declined 06/30/2024 How often do you attend episcopal or moravian serv ices? Patient declined 06/30/2024 Do you belong to any clubs o r organizations such as episcopal groups, unions, fraternal or athletic groups, or [...] [facility] - [...] place to sleep or slept in a nursing home (including now)? No 01/11/2024 Housing Stability [...] any time in the past 12 m [facility], were you homeless or living in a nursing home (including now)? Patient declined 06/30/2024 Sexually Active Control Partners Comments Not Currently Comments No Sex and Gender Information Value Date Recorded Sex Assigned at Not on file Legal Sex Female 7:34 PM CDT Gender Identity Not on file Sexual Orientation Not on file documented as of this encounter Progress Notes * Chris Chau, PAC - 08/14/2024 12:22 PM CDT [facility] PROGRESS NOTE Nichelle Hunt is a 84 y.o. female at [facility]. Subjective: Interval History: I am seeing patient today for a skilled encounter. She is sitting up comfortably in her chair. Says she is feeling â€œbetterâ€ . Denies any shortness of breath. Feels [...] Session: Patient declined Stress: Patient Declined (06/30/2024) [facility] [place] [facility] - Occupational Stress Questionnaire Feeling of Stress : Patient declined Social Integration: Patient Declined (06/30/2024) Social Connection and Isolation Panel [NHANES] Frequency of Communication with Friends and Family: Patient declined Frequency of Social Gatherings with Friends and Family: Patient declined Attends [employer] Services: Patient declined Active Member of Clubs [...] significant stenosis. No flow seen in right CHIEF NURSING EXECUTIVE, right SFA, right popliteal and both CLOCK REPAIRER, possibility of their complete occlusion cannot be excluded. CT angiogram is advised for further evaluation. . Interpreting Radiology Company: [employer]) . Interpreting Doctor: Lita Ortiz MD . [...] 08/14: Stable Generalized weakness and deconditioning Receiving longterm care and physical therapy rehabilitation Right lower [...] this patient. This note was dictated using [employer] fluency dictation system and there may be errors in waterway traffic checker. Despite proof reading the note, there may be mistakes and I apologize for those. By: Chris Chau, PAC, 08/14/2024 12:22 PM CDT documented in this encounter Plan of Treatment Upcoming Encounters Date Type Department Care Team (Late st Contact Info) Description 03/20/2025 1:00 PM CDT Office Visit [facility] [address] [place] [phone] Krish Benavides MD [address] [place] [address] Discharge Disposition: Discharged to home or Selfcare 06/07/2025 11:00 AM CDT Office Visit [facility] - Primary Care - Veena [address] [place] [address] Artie Flynn MD [address] [place] [address] documented as of this encounter Visit Diagnoses Not on filedocumented in this encounter Additional Health Concerns Assessment Noted Time PHQ-9 Depression Total Score: 0 01/11/20 24 9:52 AM CDT documented as of this encounter Care Teams House Principal Relationship Specialty Start Date End Date Rob Mendoza MD #[address] [address] PCP - General Family Medicine 09/30/18 08/31/24 Teresa Ch MD [address] [place] [address] PCP - General Family Medicine 09/01/24 12/03/24 Artie Flynn MD [address] [place] [address] PCP - General Internal Medicine 12/04/24 Jasmin Kyle MD [address] [place] [address] Consulting Physician Dermatology 12/04/24 Chichi Gomez, [place] Nurse Homeworker 01/01/25 Krish Benavides MD [address] [place] [address] Consulting Physician Radiation Oncology 02/27/25 Augie Mantilla MD [address] [place] [address] Consulting Physician Plastic Surgery 02/28/25 documented as of this encounter
--- OUTSIDE RECORDS SUMMARY | 2025-03-02 00:08 | XMS_ITS | Encounter Summary ---
Author Organization [facility] Address [address] [place] [address] [place] [address] Care Team Providers Care Clinical Application Manager Name Role Phone Rob Mendoza MD Primary Care Provider [phone] Encounter Details Date Type Department Care Team (Late st Contact Info) Description 01/21/2024 Lab Requisition [facility] - DermPath Lab [address] [place] [id number] [place] [address] [address] Social History Tobacco Use Types Packs/Day Years Used Date Smoking Tobacco: Never Assessed Comments Unknown Sex and Gender Information Value Date Recorded Sex Assigned at Not on file Legal Sex Female 8:10 AM CDT Gender Identity Not on file Sexual Orientation Not on file documented as of this encounter Plan of Treatment Not on file documented as of this encounter Procedures Procedure Name Priority Date/Time Associated Diagnosis Comments DERMATOPATHOLOGY Routine 01/20/2024 3:33 AM CDT documented in this encounter Results * DERMATOPATHOLOGY (01/20/2024 3:33 AM CDT) Case Report Dermatopathology Report Case: [id number] Authorizing Provider: Rob Cazares MD Collected: 01/20/2024 03:33 AM Ordering Location: [facility] - Received: 01/21/2024 10:18 AM DermPath Lab Pathologist: Grisel Barker MD Specimen: Skin, left infraorbital cheek 11:08 AM CDT DERMATOPATHOLOGY LABORATORY Final Diagnosis Specimen A. SKIN, left infraorbital cheek: SQUAMOUS CELL CARCINOMA, WELL TO MODERATELY DIFFERENTIATED (C44.329) PRESENT AT MARGIN 4 11:08 AM T DERMATOPATHOLOGY LABORATORY Clinical History Squamous cell carcinoma, R/O Melanoma 4 11:08 AM T DERMATOPATHOLOGY LABORATORY Gross Description Specimen A: Received is one formalin filled container labeled with the patient's name and designated left infraorbital cheek. The specimen consists of a non-oriented ellipse of skin measuring [id number] mm. The epidermal surface is unremarkable. The margin is inked green. The 12 o'clock and 6 o'clock tips are submitted in cassette 1. The remainder of the ellipse is serially sectioned and submitted in cassette 2-7. Jar 1. 4 11:08 AM T DERMATOPATHOLOGY LABORATORY Microscopic Description Specimen A. SKIN, left infraorbital cheek: There are nests of squamous epithelial cells which arise from the epidermis and extend into the dermis. The some nests at the periphery have only focal central keratinization and rare horn heather formation. This lesion is present at the margin of the specimen. 4 11:08 AM T DERMATOPATHOLOGY LABORATORY Disclaimer An external and internal positive and negative controls are appropriate for the histochemical, immunohistochemical and immunofluorescence stain(s) in this case (if any), except where stated explicitly. The performance characteristics of the stain(s) cited in this report were developed and its performance characteristic determined by the Dermatopathology Laboratory at [facility], directed by Dr. Jenifer Casillas. These tests need not be, and therefore are not, approved by the [place] Food and Drug Administration. The tests are used for clinical purposes. Billing Codes Specimen Charges Stain Charges 51728 1 4 11:08 AM CDT DERMATOPATHOLOGY LABORATORY Embedded Images 4 11:08 AM CDT DERMATOPATHOLOGY LABORATORY Pathology/Cytolo gy TISSUE SPECIMEN FROM SKIN / Unknown 01/20/2024 3:33 AM CDT 01/21/2024 10:18 AM CDT Rob Cazares MD LAB - PATHOLOGY/CYTOLOGY O RDERABLES Final Result DERMATOPATHOLOGY LABORATORY [facility] - Department of Dermatology [facility] Medicine [address] [place] [address], [address] [phone] documented in this encounter Visit Diagnoses Not on filedocumented in this encounter Care Teams Clinical Application Manager Relationship Specialty Start Date End Date Rob Mendoza MD [address] [place] [id number] PCP - General Family Medicine 01/31/24 documented as of this encounter
--- OUTSIDE RECORDS SUMMARY | 2025-03-02 00:08 | XMS_ITS | Encounter Summary ---
Author Organization [facility] Address [address] [place] [place] [address] Phone Care Team Providers Care Machine Lead Burner Name Role Phone Rob Mendoza MD Primary Care Provider [phone] Teresa Ch MD Primary Care Provider + [phone] Jasmin Kyle MD Unavailable [phone] Artie Flynn MD Primary Care Provider [phone] Chichi Gomez RN Unavailable Unavailable Krish Benavides MD Unavailable [phone] Augie Mantilla MD Unavailable [phone] Encounter Details Date Type Department Care Team (Late st Contact Info) Description 08/25/2024 Nursing Facility [facility] [address] [place] [address] [place], 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 Utilities Answer Date Recorded In the [...] declined 06/30/2024 How often do you attend latter-day or taoism serv ices? Patient declined 06/30/2024 Do you belong to any clubs o r organizations such as latter-day groups, unions, fraternal or athletic groups, or [...] place to sleep or slept in a intermediate (including now)? No 01/11/2024 Housing Stability Vital [...] any time in the past 12 m [facility], were you homeless or living in a intermediate (including now)? Patient declined 06/30/2024 Sexually Active [...] Description 03/20/2025 1:00 PM CDT Office Visit [facility] - Cancer Center Oncology Services [address] [place] [address] Krish Benavides MD [address] [place] [address] Discharge Disposition: Discharged to home or Selfcare 06/07/2025 11:00 AM CDT Office Visit [facility] Medical [facility] - Primary Care - Veena [address] [place] [address] Artie Flynn MD [address] [place] [address] documented as of this encounter Visit Diagnoses Not on filedocumented in this encounter Additional Health Concerns Assessment Noted Time PHQ-9 Depression Total Score: 0 01/11/20 9:52 AM CDT documented as of this encounter Care Teams Machine Lead Burner Relationship Specialty Start Date End Date Rob Mendoza MD [address] [address] PCP - General Family Medicine 09/30/18 08/31/24 Teresa Ch MD [address] [place] [address] PCP - General Family Medicine 09/01/24 12/03/24 Artie Flynn MD [address] [place] [address] PCP - General Internal Medicine 12/04/24 [place] [address] [place] [address] Consulting Physician Dermatology 12/04/24 Chichi Gomez, [place] Nurse Lead Teller 01/01/25 Krish Benavides MD [address] [place] [address] Consulting Physician Radiation Oncology 02/27/25 Augie Mantilla MD [address] [place] [address] Consulting Physician Plastic Surgery 02/28/25 documented as of this encounter
--- OUTSIDE RECORDS SUMMARY | 2025-03-02 00:08 | XMS_ITS | Clinical Summary ---
Author Organization [facility] Address [address] [place] [address] Care Team Providers Care Conduit Installer Name Role Phone Rob Mendoza MD Primary Care Provider [phone] Source Comments [facility],non-owned Affiliates and Associated Physician Practices is amultiple site organization consisting of ambulatory clinics and hospital sitesin [place], [place], [place] and [place]. This disclosure is being madepursuant to the Care Everywhere program and may not contain all information available regarding this patient. Last updated 18.[facility] Allergies Active Allergy Reactions Criticality Noted Date Comments Hydrocodone-Acetaminophen Nausea and/or Vomiting 01/31/2024 Medications * Be aware that medications may not be up to date on this document. Alwaysverify current medications with the patient. allopurinol (Zyloprim) 300 MG tablet Take 1 [...] as needed for Angina Active vitamin D (Cholecaciferol ) 125 MCG (5000 UT) capsule Take 1 (one) capsule by mouth once daily Active Acetaminophen (TYLENOL 8 HOUR PO) Take 1,000 mg by mouth once daily Active fluticasone-alfredo meterol hfa (Advair HFA) 115-21 MCG/ACT Inhale 2 (two) puffs by mouth 2 times daily Active Albuterol Sulfate (PROVENTIL HFA IN) Inhale by mouth as needed Active Carboxymethylce llulose Sodium (DRY EYE RELIEF OP) by Ophthalmic route 2 times daily Active Active Problems No known active problems Social History Tobacco Use Types Packs/Day Years Used Date Smoking Tobacco: Never Smokeless Tobacco: Never Tobacco Cessation:Counseling Given: Not Answered Alcohol Use Standard Drinks/Week Comments Never 0 (1 standard drink = 0.6 oz pur e alcohol) Comments Unknown Sex and Gender Information Value [...] - 1-dose 75+ series) 2015 COVID-19 VACCINE ( - season) 2024 02/24/2021, 01/27/2021 DEPRESSION SCREENING 10/18/2024 INFLUENZA VACCINE (Season Ended) 2025 06/11/2020, 07/14/2019, 06/20/2019, Additional history exists HEPATITIS B VACCINE Aged Out No longe [...] on patient's age to complete this topic Insurance MEDICARE [facility] MEDICARE [facility] ANTHEM SELF PAY NO INSURANCE Member Subscriber Plan / Payer (Ef fective for All Dates) Name:Page Huntubaldo Wang Member ID:Not on file Relation to Subscriber:Not on file Name:NICHELLE HUNT Subscriber ID:Not on file (Home) Address: [address] [place] [id number] Payer ID:Not on file Group ID:Not on file Type:Self Pay Address: [place], [place] Care Teams Conduit Installer Relationship Specialty Start Date End Date Rob Mendoza MD [address] [id number] PCP - General Family Medicine 01/31/24
--- OUTSIDE RECORDS SUMMARY | 2025-03-02 00:08 | XMS_ITS ---
Author Organization [facility] Address [address], [address] [address] Phone Care Team Providers Care Accounts Receivable Representative Name Role Phone Jasmin Kyle MD Unavailable [phone] Artie Flynn MD Primary Care Provider [phone] Chichi Gomez RN Unavailable Unavailable Krish Benavides MD Unavailable [phone] Augie Mantilla MD Unavailable [phone] Ambulatory Complex Care Management Status:Enrolled (Active) Start date:01/01/2025 Enrollment date:01/09/2025 Enrollment reason:Identified as high-risk Current support & services provided:RN Care Managed Related social drivers of health:Social Connections, Tobacco Use, Physical Activity Overview Complex Care Management Program Case Team Name Relationship Phone Chichi Gomez RN Nurse Equity Sales Assistant(Responsible Staff) Continued Care and Services Coordination
--- OUTSIDE RECORDS SUMMARY | 2025-03-02 00:08 | XMS_ITS | Encounter Summary ---
Author Organization [facility] Address [address] [facility] [place] [address] Phone Care Team Providers Care Ergonomics Consultant Name Role Phone Rob Mendoza MD Primary Care Provider [phone] Teresa Ch MD Primary Care Provider [phone] Jasmin Kyle MD Unavailable [phone] Artie Flynn MD Primary Care Provider [phone] Chichi Gomez RN Unavailable Unavailable Krish Benavides MD Unavailable [phone] Augie Mantilla MD Unavailable [phone] Encounter Details Date Type Department Care Team (Late st Contact Info) Description 08/10/2024 Nursing Facility [facility] [address] [place] [address] Chris Chau, [address] [address] Social History Tobacco Use Types Packs/Day Years Used Date Smoking Tobacco: Former Cigarettes Q uit: 02/28/2014 Smokeless Tobacco: Never Alcohol Use Standard Drinks/Week Comments No 0 (1 standard drink = 0.6 oz pur e alcohol) [facility] Utilities Answer Date Recorded In [...] declined 06/30/2024 How often do you attend mormonism or religion serv ices? Patient declined 06/30/2024 Do you belong to any clubs o r organizations such as mormonism groups, unions, fraternal or athletic groups, or [...] Total Score - Questions 1-9 0 12/17 [facility] of Occupat ional Health - Occupational Stress [...] place to sleep or slept in a group home (including now)? No 01/11/2024 Housing Stability Vital Sign Answer Cosme e Recorded In the last 12 months, was t here a time when you were not able to pay the mortgage or rent on time? Patient declined 06/30/20 In the past 12 months, how m any times have you moved where you were living? 1 06/30/2024 At any time in the past 12 m [facility], were you homeless or living in a group home (including now)? Patient declined 06/30/2024 Sexually Active Control Partners Comments Not Currently Comments No Sex and Gender Information Value Date Recorded Sex Assigned at Not on file Legal Sex Female 7:34 PM CDT Gender Identity Not on file Sexual Orientation Not on file documented as of this encounter Progress Notes * Chris Chau, PAC - 08/10/2024 2:22 PM CDT [facility] PROGRESS NOTE Nichelle Hunt is a 84 y.o. female at [facility] Shel[facility] facility for rehabilitation. Subjective: Interval History: I am seeing patient today for a skilled encounter. She is sitting up comfortably in her bed. Says she is feeling â€œbetterâ€ . Shortness of breath is much improved. [...] Session: Patient declined Stress: Patient Declined (06/30/2024) [place] of Occupational Health - Occupational Stress Questionnaire Feeling of Stress : Patient declined Social Integration: Patient Declined (06/30/2024) Social Connection and Isolation Panel [NHANES] Frequency of Communication with Friends and Family: Patient declined Frequency of Social Gatherings with Friends and Family: Patient declined Attends Congregational Services: Patient declined Active Member of Clubs [...] significant stenosis. No flow seen in right NICKEL PLANT OPERATOR, right SFA, right popliteal and both CLINICAL QUALITY MANAGER, possibility of their complete occlusion cannot be excluded. CT angiogram is advised for further evaluation. . Interpreting Radiology Company: [employer] ([email or web address]) . Interpreting Doctor: Lita Ortiz MD . [...] this patient. This note was dictated using [employer]*new[employer] fluency dictation system and there may be errors in chainsaw mechanic. Despite proof reading the note, there may be mistakes and I apologize for those. By: Chris Chau PAC, 08/10/2024 2:22 PM CDT documented in this encounter Plan of Treatment Upcoming Encounters Date Type Department Care Team (Late st Contact Info) Description 03/20/2025 1:00 PM CDT Office Visit [facility] - Cancer Center Oncology Services [address] [place] [address] Krish Benavides MD [address] [place] [address] Discharge Disposition: Discharged to home or Selfcare 06/07/2025 11:00 AM CDT Office Visit [facility] - Primary Care - Curiel [address] [place] [address] Artie Flynn MD [address] [place] [address] documented as of this encounter Visit Diagnoses Not on filedocumented in this encounter Additional Health Concerns Assessment Noted Time PHQ-9 Depression Total Score: 0 01/11/20 24 9:52 AM CDT documented as of this encounter Care Teams Ergonomics Consultant Relationship Specialty Start Date End Date Rob Mendoza MD #[address] [address] PCP - General Family Medicine 09/30/18 08/31/24 Teresa Ch MD [address] [place] [address] PCP - General Family Medicine 09/01/24 12/03/24 Artie Flynn MD [address] [place] [address] PCP - General Internal Medicine 12/04/24 [place] [address] [place] [address] Consulting Physician Dermatology 12/04/24 Chichi Gomez RN [place] Nurse Tile Sorter 01/01/25 Krish Benavides MD [address] [place] [address] Consulting Physician Radiation Oncology 02/27/25 Augie Mantilla MD [address] [address] Consulting Physician Plastic Surgery 02/28/25 documented as of this encounter
--- OUTSIDE RECORDS SUMMARY | 2025-03-02 00:08 | XMS_ITS | Encounter Summary ---
Author Organization [facility] Address [address] [facility] [place] [address] Phone Care Team Providers Care Cigar Packer And Grader Name Role Phone Rob Mendoza MD Primary Care Provider [phone] Teresa Ch MD Primary Care Provider [phone] Jasmin Kyle MD Unavailable [phone] Artie Flynn MD Primary Care Provider [phone] Chichi Gomez RN Unavailable Unavailable Krish Benavides MD Unavailable Augie Mantilla MD Unavailable [phone] Encounter Details Date Type Department Care Team (Late st Contact Info) Description 08/17/2024 Nursing Facility [facility] [address] [place] [phone] Chris Chau, [address] [address] Social History Tobacco Use Types Packs/Day Years [...] How often do you attend hoahaoism or mormonism serv ices? Patient declined 06/30/2024 Do you [...] Total Score - Questions 1-9 0 12/17 [facility] of Occupat ional Health - Occupational [...] any time in the past 12 m [facility], were you homeless or [...] Chau, PAC - 08/17/2024 1:07 PM CDT [facility] PROGRESS NOTE Nichelle Hunt is a 84 y.o. female at [facility] Senior Living facility for rehabilitation. Subjective: Interval History: I am seeing patient today for a skilled encounter. She is sitting up comfortably in her chair. Says she is feeling â€œgoodâ€ . Denies any shortness of breath. She [...] Session: Patient declined Stress: Patient Declined (06/30/2024) [place] of Occupational Health - Occupational Stress Questionnaire Feeling of Stress : Patient declined Social Integration: Patient Declined (06/30/2024) Social Connection and Isolation Panel [NHANES] Frequency of Communication with Friends and Family: Patient declined Frequency of Social Gatherings with Friends and Family: Patient declined Attends Judaism Services: Patient declined Active Member of Clubs [...] significant stenosis. No flow seen in right ENTRY LEVEL ADMINISTRATIVE ASSISTANT, right SFA, right popliteal and both PAINTER HELPER SPRAY, possibility of their complete occlusion cannot be excluded. CT angiogram is advised for further evaluation. . Interpreting Radiology Company: [employer] (StudyApps) . Interpreting Doctor: Lita Ortiz MD . [...] 08/17/2024 stable Generalized weakness and deconditioning Receiving care home care and physical therapy rehabilitation Right lower [...] this patient. This note was dictated using [employer] fluency dictation system and there may be errors in ship cleaner. Despite proof reading the note, there may be mistakes and I apologize for those. By: Chris Chau PAC, 08/17/2024 1:08 PM CDT documented in this encounter Plan of Treatment Upcoming Encounters Date Type Department Care Team (Late st Contact Info) Description 03/20/2025 1:00 PM CDT [facility] [address] [place] [address] Krish Benavides MD [address] [place] [address] Discharge Disposition: Discharged to home or Selfcare 06/07/2025 11:00 AM CDT Office Visit [facility] Medical [facility] - Primary Care - Veena [address] [place] [address] Artie Flynn MD [address] [place] [address] documented as of this encounter Visit Diagnoses Not on filedocumented in this encounter Additional Health Concerns Assessment Noted Time PHQ-9 Depression Total Score: 0 01/11/20 24 9:52 AM CDT documented as of this encounter Care Teams Cigar Packer And Grader Relationship Specialty Start Date End Date Rob Mendoza MD #[address] [address] PCP - General Family Medicine 09/30/18 08/31/24 Teresa Ch MD [address] [place] [address] PCP - General Family Medicine 09/01/24 12/03/24 Artie Flynn MD [address] [place] [address] PCP - General Internal Medicine 12/04/24 [place] [address] [place] [address] Consulting Physician Dermatology 12/04/24 Chichi Gomez RN [place] Nurse Database Design Analyst 01/01/25 Krish Benavides MD [address] [place] [address] Consulting Physician Radiation Oncology 02/27/25 Augie Mantilla MD [address] [address] Consulting Physician Plastic Surgery 02/28/25 documented as of this encounter
--- OUTSIDE RECORDS SUMMARY | 2025-03-02 00:08 | XMS_ITS | Continuity of Care Document ---
Author Organization [facility] Address [address] [place] [address] [place] [address] Phone Care Team Providers Care Master Control Operator Name Role Phone Emmy Oliva MD Unavailable Unavailable Advance Directives Directive Yes / No Effective Date File Name No Information Encounters Encounter Description Practice Location Reason(s) For Visit Diagnoses Date Provider Providers Copied on Encounter [facility], [address] [place] [address] [address], [place], [place], [id number], [place] tel:[phone] [facility] Professional No Information Sep-2 0-200 [address]. [address] [place], [address], [place]. tel:[phone] Referring Provider: Maria Dolores Rivas, [address] [place] [address], [address]. tel:[phone] Family History Family Member Type Diagnosis Age At Onset No Information Payers Payer name Insurance type Covered constitution party ID Authoriza tion(s) Medicare [facility] [id number] [facility] CI [id number] Social History Type Description Quantity Date Captured [...]
--- OUTSIDE RECORDS SUMMARY | 2025-03-02 00:08 | XMS_ITS | Encounter Summary ---
Author Organization [facility] Address [address] [facility] [place] [address] Phone Care Team Providers Care Compression Molding Machine Operator Name Role Phone Rob Mendoza MD Primary Care Provider Teresa Ch MD Primary Care Provider [phone] Jasmin Kyle MD Unavailable [phone] Artie Flynn MD Primary Care Provider [phone] Chichi Gomez RN Unavailable Unavailable Krish Benavides MD Unavailable [phone] Augie Mantilla MD Unavailable Encounter Details Date Type Department Care Team (Late st Contact Info) Description 08/07/2024 Nursing Facility [facility] [address] [place] [address] Chris Chau, [address] [id number] Social History Tobacco Use Types Packs/Day Years Used Date Smoking Tobacco: Former Cigarettes Q uit: 02/28/2014 Smokeless Tobacco: Never Alcohol Use Standard Drinks/Week Comments No 0 (1 standard drink = 0.6 oz pur e alcohol) [facility] Utilities Answer Date Recorded In the [...] declined 06/30/2024 How often do you attend catholic or catholic serv ices? Patient declined 06/30/2024 Do you belong to any clubs o r organizations such as catholic groups, unions, fraternal or athletic groups, or [...] Total Score - Questions 1-9 0 12/17 [facility] of Occupat ional Health - Occupational [...] Chau, PAC - 08/07/2024 11:37 AM CDT [facility] PROGRESS NOTE Nichelle Hunt is a 84 y.o. female at [facility] Nursing [facility]. Subjective: Interval History: I am seeing patient today for a skilled encounter. She is sitting comfortably in her chair. Reports that last night she was having shortness of breath and feeling overheated. Oxygen saturation was apparently as low as 78% according to the patient. She was placed on supplemental oxygen. Currently she says she is feeling â€œbetterâ€ . No fevers. No chest pain or [...] Session: Patient declined Stress: Patient Declined (06/30/2024) Citizen Of [place] of Occupational Health - Occupational Stress Questionnaire Feeling of Stress : Patient declined Social Integration: Patient Declined (06/30/2024) Social Connection and Isolation Panel [NHANES] Frequency of Communication with Friends and Family: Patient declined Frequency of Social Gatherings with Friends and Family: Patient declined Attends Yarsani Services: Patient declined Active Member of Clubs [...] significant stenosis. No flow seen in right COLOR COATER, right SFA, right popliteal and both CRYSTAL REPORT DEVELOPER, possibility of their complete occlusion cannot be excluded. CT angiogram is advised for further evaluation. . Interpreting Radiology Company: [employer] (Sky[employer]) . Interpreting Doctor: Lita Ortiz MD . [...] as tolerated Generalized weakness and deconditioning Receiving [facility]pc care and physical therapy rehabilitation Right lower [...] system and there may be errors in smoke chaser. Despite proof reading the note, there may be mistakes and I apologize for those. By: BURT Styles, 08/07/2024 11:40 AM CDT documented in this encounter Plan of Treatment Upcoming Encounters Date Type Department Care Team (Late st Contact Info) Description 03/20/2025 1:00 PM CDT [facility] [address] [place] [address] Krish Benavides MD [address] [place] [address] Discharge Disposition: Discharged to home or Selfcare 06/07/2025 11:00 AM CDT Office Visit [facility] - Primary Care - Curiel [address] [place] [address] Artie Flynn MD [address] [place] [address] documented as of this encounter Visit Diagnoses Not on filedocumented in this encounter Additional Health Concerns Assessment Noted Time PHQ-9 Depression Total Score: 0 01/11/20 24 9:52 AM CDT documented as of this encounter Care Teams Compression Molding Machine Operator Relationship Specialty Start Date End Date Rob Mendoza MD #[address] [address] PCP - General Family Medicine 09/30/18 08/31/24 Teresa Ch MD [address] [place] [address] PCP - General Family Medicine 09/01/24 12/03/24 Artie Flynn MD [address] [place] [address] PCP - General Internal Medicine 12/04/24 [place] [address] [place] [address] Consulting Physician Dermatology 12/04/24 Chichi Gomez RN [place] Nurse Information Systems Technician 01/01/25 Krish Benavides MD [address] [place] [address] Consulting Physician Radiation Oncology 02/27/25 Augie Mantilla MD [address] [address] Consulting Physician Plastic Surgery 02/28/25 documented as of this encounter
--- OUTSIDE RECORDS SUMMARY | 2025-03-02 00:08 | XMS_ITS | Encounter Summary ---
Author Organization [facility] Address [address] [facility] [place] [address] Phone Care Team Providers Care Carrier Operator Name Role Phone Rob Mendoza MD Primary Care Provider Chichi Gomez RN Unavailable Unavailable Phan Gómez MD Unavailable Teresa Ch MD Primary Care Provider [phone] Jasmin Kyle MD Unavailable Artie Flynn MD Primary Care Provider Chichi Gomez RN Unavailable Unavailable Krish Benavides MD Unavailable Augie Mantilla MD Unavailable [phone] Encounter Details Date Type Department Care Team (Late st Contact Info) Description 09/02/2023 Telephone [facility] [address] [place] [address] Rob Mendoza MD #[address] [address] Social History Tobacco Use Types Packs/Day Years [...] Description 03/20/2025 1:00 PM CDT Office Visit [facility] Center Oncology Services [address] [place] [address] Krish Benavides MD [address] [place] [address] Discharge Disposition: Discharged to home or Selfcare 06/07/2025 11:00 AM CDT Office Visit [facility] Medical [facility] - Primary Care - [place] [address] [place] [address] Artie Flynn MD [address] [place] [address] documented as of this encounter Visit Diagnoses Not on filedocumented in this encounter Additional Health Concerns Assessment Noted Time PHQ-9 Depression Total Score: 0 07/22/20 20 8:40 AM CDT documented as of this encounter Care Teams Carrier Operator Relationship Specialty Start Date End Date Rob Mendoza MD #[address] [address] PCP - General Family Medicine 09/30/18 08/31/24 Phan Gómez MD [address] [place] [address] PCP - Hospice Attending Provider 06/30/24 07/03/24 Teresa Ch MD [address] [place] [address] PCP - General Family Medicine 09/01/24 12/03/24 Artie Flynn MD [address] [place] [address] PCP - General Internal Medicine 12/04/24 Chichi Gomez, RN [place] Nurse Assistant Track And Field Coach 01/05/24 07/03/24 [place] [address] [place] [address] Consulting Physician Dermatology 12/04/24 Chichi Gomez, RN [place] Nurse Assistant Track And Field Coach 01/01/25 Krish Benavides MD [address] [place] [address] Consulting Physician Radiation Oncology 02/27/25 Augie Mantilla MD [address] [address] Consulting Physician Plastic Surgery 02/28/25 documented as of this encounter
--- OUTSIDE RECORDS SUMMARY | 2025-03-02 00:08 | XMS_ITS | Encounter Summary ---
Author Organization [facility] Address [address] [facility] [place] [address] Phone Care Team Providers Care Civil Celebrant Name Role Phone Rob Mendoza MD Primary Care Provider [phone] Teresa Ch MD Primary Care Provider + [phone] Jasmin Kyle MD Unavailable [phone] Artie Flynn MD Primary Care Provider [phone] Chichi Gomez RN Unavailable Unavailable Krish Benavides MD Unavailable [phone] Augie Mantilla MD Unavailable [phone] Encounter Details Date Type Department Care Team (Late st Contact Info) Description 08/21/2024 Nursing Facility [facility] [place] [address] La Castillo, JOCKEY AGENT, DIRECTOR OF CARDIOLOGY SERVICE LINE [address] [place] [address] Social History Tobacco Use Types Packs/Day Years Used Date Smoking Tobacco: Former Cigarettes Q uit: 02/28/2014 Smokeless Tobacco: Never Alcohol Use Standard Drinks/Week Comments No 0 (1 standard drink = 0.6 oz pur e alcohol) [facility] Utilities Answer Date Recorded In the [...] declined 06/30/2024 How often do you attend confucianist or denominational serv ices? Patient declined 06/30/2024 Do you belong to any clubs o r organizations such as confucianist groups, unions, fraternal or athletic groups, or [...] No 01/11/2024 Housing Stability Vital Sign Answer Csome e Recorded In the last 12 months, was t here a time when you were not able to pay the mortgage or rent on time? Patient declined 06/30/20 24 In the past 12 months, how m any times have you moved where you were living? 1 06/30/2024 At any time in the past [address] [facility], were you homeless or living in a [...] Description 03/20/2025 1:00 PM CDT Office Visit [facility] - Cancer Center Oncology Services [address] [place] [address] Krish Benavides MD [address] [place] [address] Discharge Disposition: Discharged to home or Selfcare 06/07/2025 11:00 AM CDT Office Visit [facility] Medical [facility] - Primary Care - [place] [address] [place] [address] Artie Flynn MD [address] [place] [address] documented as of this encounter Visit Diagnoses Not on filedocumented in this encounter Additional Health Concerns Assessment Noted Time PHQ-9 Depression Total Score: 0 01/11/20 9:52 AM CDT documented as of this encounter Care Teams Civil Celebrant Relationship Specialty Start Date End Date Rob Mendoza MD #[address] [address] PCP - General Family Medicine 09/30/18 08/31/24 Teresa Ch MD [address] [place] [address] PCP - General Family Medicine 09/01/24 12/03/24 Artie Flynn MD [address] [place] [address] PCP - General Internal Medicine 12/04/24 [place] [address] [place] [address] Consulting Physician Dermatology 12/04/24 Chichi Gomez, WALTER [place] Nurse Client Administrator 01/01/25 Krish Benavides MD [address] [place] [address] Consulting Physician Radiation Oncology 02/27/25 Augie Mantilla MD [address] [place] [address] Consulting Physician Plastic Surgery 02/28/25 documented as of this encounter
--- OUTSIDE RECORDS SUMMARY | 2025-03-02 00:08 | XMS_ITS | Encounter Summary ---
Author Organization [facility] Address [address] [facility] [place] [address] Phone Care Team Providers Care Prototype Sewer Name Role Phone Rob Mendoza MD Primary Care Provider Chichi Gomez RN Unavailable Unavailable Phan Gómez MD Unavailable Teresa Ch MD Primary Care Provider [phone] Jasmin Kyle MD Unavailable [phone] Artie Flynn MD Primary Care Provider Chichi Gomez RN Unavailable Unavailable Krish Benavides MD Unavailable Augie Mantilla MD Unavailable [phone] Reason for Visit * Reason Comments Medication Refill Encounter Details Date Type Department Care Team (Late st Contact Info) Description 07/02/2020 [facility] [address] [place] [address] Rob Mendoza MD #[address] [address] Medication Refill Social History Tobacco Use Types [...] in * Telephone Encounter - [place] Anca - 07/03/2020 12:02 PM CDT Medication failed [...] S/P percutaneous coronary angioplasty [facility] Rob Mendoza MD 11 months ago CAD S/P percutaneous coronary angioplasty [facility] Rob Mendoza MD 1 year ago Essential hypertension [facility] Rob Mendoza MD 1 year ago Essential hypertension [facility] Criss Galdamez PAC 2 years ago Essential hypertension [facility] Cee Contreras MD Upcoming Appointments Future Appointments In 1 week Lab, Sap[facility], [facility] In 2 weeks Rob Mendoza MD [facility], [facility] FACILITIES FLIGHT CHECK PILOT - Recent and Past Visits Recent Visits [...] [place] - 07/03/2020 12:02 PM CDT Â BUN 31 (H) 01/09/2020 Â CALCIUM 9.6 01/09/2020 Â CREATININE 1.23 (H) 01/09/2020 documented in this encounter Plan of Treatment Upcoming Encounters Date Type Department Care Team (Late st Contact Info) Description 03/20/2025 1:00 PM CDT [facility] [address] [place] [address] Krish Benavides MD [address] [place] [address] Discharge Disposition: Discharged to home or Selfcare 06/07/2025 11:00 AM CDT Office Visit [facility] - Primary Care - [place] [address] [place] [address] Artie Flynn MD [address] [place] [address] documented as of this encounter Visit Diagnoses Not on filedocumented in this encounter Additional Health Concerns Assessment Noted Time PHQ-9 Depression Total Score: 0 01/24/20 19 10:00 AM CDT documented as of this encounter Care Teams Prototype Sewer Relationship Specialty Start Date End Date Rob Mendoza MD #[address] [address] PCP - General Family Medicine 09/30/18 08/31/24 Phan Gómez MD [address] [place] [address] PCP - Hospice Attending Provider 06/30/24 07/03/24 Teresa Ch MD [address] [place] [address] PCP - General Family Medicine 09/01/24 12/03/24 Artie Flynn MD [address] [place] [address] PCP - General Internal Medicine 12/04/24 Chichi Gomez RN [place] Nurse Applications Consultant 01/05/24 07/03/24 Jasmin Kyle MD [address] [place] [address] Consulting Physician Dermatology 12/04/24 Chichi Gomez, RN [place] Nurse Applications Consultant 01/01/25 Krish Benavides MD 0 [place] [address] Consulting Physician Radiation Oncology 02/27/25 Augie Mantilla MD [address] [place] [address] Consulting Physician Plastic Surgery 02/28/25 documented as of this encounter
--- OUTSIDE RECORDS SUMMARY | 2025-03-02 00:08 | XMS_ITS | Encounter Summary ---
Author Organization [facility] Address [address] [facility] [place] [address] Phone Care Team Providers Care Application Dba Name Role Phone Rob Mendoza MD Primary Care Provider [phone] Chichi Gomez RN Unavailable Unavailable Phan Gómez MD Unavailable Teresa Ch MD Primary Care Provider [phone] Jasmin Kyle MD Unavailable [phone] Artie Flynn MD Primary Care Provider [phone] Chichi Gomez RN Unavailable Unavailable Krish Benavides MD Unavailable [phone] Augie Mantilla MD Unavailable [phone] Reason for Visit * Reason Comments Medication Refill Encounter Details Date Type Department Care Team (Late st Contact Info) Description 01/15/2024 Refill [facility] - Family Medicine [facility] [address] [place] [address] Rob Mendoza MD #[address] [address] Medication Refill Social History Tobacco Use Types Packs/Day Years Used Date Smoking Tobacco: Former Cigarettes Q uit: 02/28/2014 Smokeless Tobacco: Never Alcohol Use Standard Drinks/Week Comments No 0 (1 standard drink = 0.6 oz pur e alcohol) [facility] Utilities Answer Date Recorded In the past 12 months has th e [employer], gas, oil, or water [employer] threatened to shut off services in your home? No 01/11/2024 Social Connection and Isolation Panel [NHANES] A nswer Date Recorded In a typical week, how many times do you talk on the phone with family, friends, or neighbors? Once a week 01/11/20 How often do you get togethe r with friends or relatives? Never 01/11/2024 How often do you attend chur ch or sikhism services? 1 to 4 times per year 01/11/2024 Do you belong to any clubs o r organizations such as anabaptist groups, unions, fraternal or athletic groups, or [...] Score - Questions 1-9 0 12/17 [facility] of Occupat ional Health - [...] place to sleep or slept in a prison (including now)? No 01/11/2024 Sexually Active Control [...] Description 03/20/2025 1:00 PM CDT Office Visit [facility] - Cancer Center Oncology Services [address] [place] [address] Krish Benavides MD [address] [place] [address] Discharge Disposition: Discharged to home or Selfcare 06/07/2025 11:00 AM CDT Office Visit [facility] - Primary Care [facility] [address] [place] [address] Artie Flynn MD [address] [place] [address] documented as of this encounter Visit Diagnoses Not on filedocumented in this encounter Additional Health Concerns Assessment Noted Time PHQ-9 Depression Total Score: 0 01/11/20 9:52 AM CDT documented as of this encounter Care Teams Application Dba Relationship Specialty Start Date End Date Rob Mendoza MD #[address] [address] PCP - General Family Medicine 09/30/18 08/31/24 Phan Gómez MD [address] [place] [address] PCP - Hospice Attending Provider 06/30/24 07/03/24 Teresa Ch MD [address] [place] [address] PCP - General Family Medicine 09/01/24 12/03/24 Artie Flynn MD [address] [place] [address] PCP - General Internal Medicine 12/04/24 Chichi Gomez, WALTER [place] Nurse Kick Plate Installer 01/05/24 07/03/24 [place] [address] [place] [address] Consulting Physician Dermatology 12/04/24 Chichi Gomez, RN [place] Nurse Kick Plate Installer 01/01/25 Krish Benavides MD [address] [place] [address] Consulting Physician Radiation Oncology 02/27/25 Augie Mantilla MD [address] [address] Consulting Physician Plastic Surgery 02/28/25 documented as of this encounter
--- OUTSIDE RECORDS SUMMARY | 2025-03-02 00:09 | XMS_ITS | Encounter Summary ---
Author Organization [facility] Address [address] [facility] [place] [address] Phone Care Team Providers Care Hereditary Cancer Program Coordinator Name Role Phone Rob Mendoza MD Primary Care Provider [phone] Teresa Ch MD Primary Care Provider [phone] Jasmin Kyle MD Unavailable [phone] Artei Flynn MD Primary Care Provider [phone] Chichi Gomez RN Unavailable Unavailable Krish Benavides MD Unavailable [phone] Augie Mantilla MD Unavailable [phone] Reason for Referral * Radiology Services (Less Than 3 Days) - Closed Specialty Diagnoses / Procedures Referred By Contac t Referred To Contact Radiology Diagnoses Peripheral arterial disease (HCC) Procedures CT ANGIO BILAT ABD AORTA ILIOFEMORAL W/WO Chris Chau PAC Phone: tel: fax: Referral ID Status Reason Start Date Expiration Date Visits Re quested Visits Authorized [id number] Closed 07/17/2024 1 1 Encounter Details Date Type Department Care Team (Late st Contact Info) Description 07/17/2024 Nursing Facility [facility] [address] [place] [address] Chris Chau PAC [address] [place] [address] Peripheral arterial disease (HCC) (Primary Dx) Social History Tobacco Use Types Packs/Day Years Used Date Smoking Tobacco: Former Cigarettes Q uit: 02/28/2014 Smokeless Tobacco: Never Alcohol Use Standard Drinks/Week Comments No 0 (1 standard drink = 0.6 oz pur e alcohol) [facility] Utilities Answer Date Recorded In the past 12 months has e [employer], gas, oil, or water [employer] threatened to shut off services in your home? Patient declined 06/30/2024 Social Connection and Isolation Panel [NHANES] A nswer Date Recorded In a typical week, how many times do you talk on the phone with family, friends, or neighbors? Patient declined 06/30/2024 How often do you get togethe r with friends or relatives? Patient declined 06/30/2024 How often do you attend mosque or hindu serv ices? Patient declined 06/30/2024 Do you belong to any clubs o r organizations such as mosque groups, unions, fraternal or athletic groups, or [...] Score - Questions 1-9 0 12/17 [facility] - Occupational Stress Questionnaire Answer [...] any time in the past 12 m [facility], were you homeless or living in [...] Chau, PAC - 07/17/2024 1:33 PM CDT [facility] NURSING PROGRESS NOTE Nichelle Hunt is a 84 y.o. female at [facility] for rehabilitation. Subjective: Interval History: I am seeing patient today for a skilled encounter. She is lying comfortably in bed. This came back from therapy. Says she is feeling â€œbetterâ€ . Lower extremity pain is improving and [...] Session: Patient declined Stress: Patient Declined (06/30/2024) [place] [facility] of Occupational Health - Occupational Stress Questionnaire Feeling of Stress : Patient declined Social Integration: Patient Declined (06/30/2024) Social Connection and Isolation Panel [NHANES] Frequency of Communication with Friends and Family: Patient declined Frequency of Social Gatherings with Friends and Family: Patient declined Attends Restorationism Services: Patient declined Active Member of Clubs [...] significant stenosis. No flow seen in right PAPER COLORER, right SFA, right popliteal and both TRUCK DRIVER SALESPERSON, possibility of their complete occlusion cannot be excluded. CT angiogram is advised for further evaluation. . Interpreting Radiology Company: [employer] ([employer]) . Interpreting Doctor: Lita Ortiz MD . Electronically Signed By: Lita Ortiz MD . Signed Date: Physician electronically signed on - 07/14/2024 09:22:35 PM Assessment/Plan: Generalized weakness and deconditioning Receiving correction care and physical therapy rehabilitation Right lower [...] this patient. This note was dictated using M*[employer]ban[employer] fluency dictation system and there may be errors in bridge maintenance worker. Despite proof reading the note, there may be mistakes and I apologize for those. By: BURT Styles, 07/17/2024 1:33 PM CDT documented in this encounter Plan of Treatment Upcoming Encounters Date Type Department Care Team (Late st Contact Info) Description 03/20/2025 1:00 PM CDT Office Visit [facility] Center Oncology Services [address] [place] [address] Krish Benavides MD [address] [place] [address] Discharge Disposition: Discharged to home or Selfcare 06/07/2025 11:00 AM CDT Office Visit [facility] Primary Care - [place] [address] [place] [address] Artie Flynn MD [address] [place] [address] documented as of this encounter Procedures Procedure [...] PM - Electronically signed by Jean Claude Wang.D. NS: NS Report ID: [id number] Reading Location: [id number] Procedure Note Jean Claude Segovia MD - [...] Claude Segovia M.D. NS: NS Report ID: [id number] Reading Location: [id number] IMPRESSION: 1. Bilateral continuous three-vessel runoff to [...] incidental and chronic findings as above. Chris Claros Kandi PAC IMG CT ORDERABLES F inal Result documented in this encounter Visit Diagnoses Diagnosis Peripheral arterial disease (HCC)- Primary Unspecified disorders of arteries and arterioles documented in this encounter Additional Health Concerns Assessment Noted Time PHQ-9 Depression Total Score: 0 01/11/20 24 9:52 AM CDT documented as of this encounter Care Teams Hereditary Cancer Program Coordinator Relationship Specialty Start Date End Date Rob Mendoza MD #[address] [address] PCP - General Family Medicine 09/30/18 08/31/24 Teresa Ch MD [address] [place] [address] PCP - General Family Medicine 09/01/24 12/03/24 Artie Flynn MD [address] [place] [address] PCP - General Internal Medicine 12/04/24 [place] [address] [place] [address] Consulting Physician Dermatology 12/04/24 Chichi Gomez RN [place] Nurse Semiconductors Wafer Breaker 01/01/25 Krish Benavides MD [address] [place] [address] Consulting Physician Radiation Oncology 02/27/25 Augie Mantilla MD [address] [address] Consulting Physician Plastic Surgery 02/28/25 documented as of this encounter
--- OUTSIDE RECORDS SUMMARY | 2025-03-02 00:09 | XMS_ITS | Encounter Summary ---
Author Organization [facility] Address [address] [facility] [place] [address] Phone Care Team Providers Care Protection Mgr Name Role Phone Rob Mendoza MD Primary Care Provider [phone] Teresa Ch MD Primary Care Provider [phone] Jasmin Kyle MD Unavailable [phone] Artie Flynn MD Primary Care Provider [phone] Chichi Gomez RN Unavailable Unavailable Krish Benavides MD Unavailable [phone] Augie Mantilla MD Unavailable [phone] Encounter Details Date Type Department Care Team (Late st Contact Info) Description 08/02/2024 Nursing Facility [facility] [address] [place] [address] Chris Chau, [address] [id number] Social History Tobacco Use Types Packs/Day Years Used Date Smoking Tobacco: Former Cigarettes Q uit: 02/28/2014 Smokeless Tobacco: Never Alcohol Use Standard Drinks/Week Comments No 0 (1 standard drink = 0.6 oz pur e alcohol) [facility] Utilities Answer Date Recorded In the past [...] How often do you attend confucianist or roman catholic serv ices? Patient declined 06/30/2024 Do [...] Total Score - Questions 1-9 0 12/17 [facility] of Occupat ional Health - [...] or living in a fpc (including now)? Patient declined 06/30/2024 Sexually Active Control Partners Comments Not Currently Comments No Sex and Gender Information Value Date Recorded Sex Assigned at Not on file Legal Sex Female 7:34 PM CDT Gender Identity Not on file Sexual Orientation Not on file documented as of this encounter Progress Notes * Chris Chau, PAC - 08/02/2024 3:00 PM CDT [facility] LONG TERM PROGRESS NOTE Nichelle Hunt is a 84 y.o. female at [facility] Intermediate facility for rehabilitation. Subjective: Interval History: I [...] Session: Patient declined Stress: Patient Declined (06/30/2024) [place] of Occupational Health - Occupational Stress Questionnaire [...] significant stenosis. No flow seen in right HIGH SCALER, right SFA, right popliteal and both CO DIRECTOR, possibility of their complete occlusion cannot be excluded. CT angiogram is advised for further evaluation. . Interpreting Radiology Company: [employer]) . Interpreting Doctor: Lita Ortiz MD . [...] are improving. Generalized weakness and deconditioning Receiving half-way care and physical therapy rehabilitation Right lower [...] system and there may be errors in vice president consulting services. Despite proof reading the note, there may be mistakes and I apologize for those. By: BURT Styles, 08/02/2024 3:00 PM CDT documented in this encounter Plan of Treatment Upcoming Encounters Date Type Department Care Team (Late st Contact Info) Description 03/20/2025 1:00 PM CDT Office Visit [facility] - Cancer Center Oncology Services [address] [place] [address] Krish Benavides MD [address] [place] [address] Discharge Disposition: Discharged to home or Selfcare 06/07/2025 11:00 AM CDT Office Visit [facility] - Primary Care - [place] [address] [place] [address] Artie Flynn MD [address] [place] [address] documented as of this encounter Visit Diagnoses Not on filedocumented in this encounter Additional Health Concerns Assessment Noted Time PHQ-9 Depression Total Score: 0 01/11/20 9:52 AM CDT documented as of this encounter Care Teams Protection Mgr Relationship Specialty Start Date End Date Rob Mendoza MD #[address] [address] PCP - General Family Medicine 09/30/18 08/31/24 Teresa Ch MD [address] [place] [address] PCP - General Family Medicine 09/01/24 12/03/24 Artie Flynn MD [address] [place] [address] PCP - General Internal Medicine 12/04/24 Jasmin Kyle MD [address] [place] [address] Consulting Physician Dermatology 12/04/24 Gomez, Chichi M, RN [place] Nurse Coin Dealer 01/01/25 Krish Benavides MD [address] [place] [address] Consulting Physician Radiation Oncology 02/27/25 Augie Mantilla MD [address] [address] Consulting Physician Plastic Surgery 02/28/25 documented as of this encounter
--- OUTSIDE RECORDS SUMMARY | 2025-03-02 00:09 | XMS_ITS ---
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 Author Careful Skin Care Patient Goals On track( 9:56 AM CDT) Yes Chichi Gomez, RN Note: Follow Up Date 02/2025 - clean and dry skin well - [...] unbroken. Notes: Follow Treatment Plan Patient Goals On track( 025 9:56 AM CDT) Yes Chichi Gomez, RN Note: Follow Up Date 02/2025 - ask for help if I cannot [...] Increased Care Plan Activity and Exercise (Wellness) On track( 025 9:40 AM CDT) Chichi Kasper RN Note: Evidence-based guidance: Review current exercise [...] promoted - support and encouragement provided Notes: 01/17/2025 Surgery went well. No issues with SOB. Daughter states she is active and exercising. 01/23/2025 She states she is feeling great. No signs of infection. She has follow up appointment scheduled. 02/01/2025 She is using her foot peddler and doing chair exercises. She has been active with appointments and cooking. Related Goals and Interventions Goal Associated Intervent ions Activity and Exercise Increased Alleviat e Barriers to Increasing Activity Level
--- OUTSIDE RECORDS SUMMARY | 2025-03-02 00:09 | XMS_ITS | Encounter Summary ---
Author Organization [facility] Address [address] [facility] [address] Phone Care Team Providers Care Clip On Sunglasses Inspector Name Role Phone Rob Mendoza MD Primary Care Provider [phone] Teresa Ch MD Primary Care Provider [phone] Jasmin Kyle MD Unavailable [phone] Artie Flynn MD Primary Care Provider [phone] Chichi Gomez RN Unavailable Unavailable Krish Benavides MD Unavailable [phone] Augie Mantilla MD Unavailable [phone] Encounter Details Date Type Department Care Team (Late st Contact Info) Description 07/24/2024 Nursing Facility [facility] [address] [place] [address] Chris Chau, [address] [address] Social History Tobacco Use Types Packs/Day Years Used Date Smoking Tobacco: Former Cigarettes Q uit: 02/28/2014 Smokeless Tobacco: Never Alcohol Use Standard Drinks/Week Comments No 0 (1 standard drink = 0.6 oz pur e alcohol) [facility] Utilities Answer Date Recorded In [...] declined 06/30/2024 How often do you attend jewish or jewish serv ices? Patient declined 06/30/2024 Do you belong to any clubs o r organizations such as jewish groups, unions, fraternal or athletic groups, or [...] any time in the past 12 m [facility], were you homeless or living in [...] Chau, PAC - 07/24/2024 6:06 PM CDT [facility] RESIDENTIAL PROGRESS NOTE Nichelle Hunt is a 84 y.o. female at [facility]. Subjective: Interval History: I [...] Session: Patient declined Stress: Patient Declined (06/30/2024) [place] [facility] Occupational Health - Occupational Stress Questionnaire [...] significant stenosis. No flow seen in right APPRAISER PERSONAL PROPERTY, right SFA, right popliteal and both CONTRACTS ADMINISTRATOR, possibility of their complete occlusion cannot be excluded. CT angiogram is advised for further evaluation. . Interpreting Radiology Company: [employer] . Interpreting Doctor: Lita Ortiz MD [...] very closely. Generalized weakness and deconditioning Receiving care home [...] system and there may be errors in lavender farm worker. Despite proof reading the note, there may be mistakes and I apologize for those. By: BURT Styles, 07/24/2024 6:06 PM CDT documented in this encounter Plan of Treatment Upcoming Encounters Date Type Department Care Team (Late st Contact Info) Description 03/20/2025 1:00 PM CDT Office Visit [facility] On[facility] Services [address] [place] [id number] Krish Benavides MD [address] [place] [address] Discharge Disposition: Discharged to home or Selfcare 06/07/2025 11:00 AM CDT [facility] [place] [address] [place] [id number] Artie Flynn MD [address] [place] [address] documented as of this encounter Visit Diagnoses Not on filedocumented in this encounter Additional Health Concerns Assessment Noted Time PHQ-9 Depression Total Score: 0 01/11/20 9:52 AM CDT documented as of this encounter Care Teams Clip On Sunglasses Inspector Relationship Specialty Start Date End Date Rob Mendoza MD [address] [address] PCP - General Family Medicine 09/30/18 08/31/24 Teresa Ch MD [address] [place] [address] PCP - General Family Medicine 09/01/24 12/03/24 Artie Flynn MD [address] [place] [address] PCP - General Internal Medicine 12/04/24 Jasmin Kyle MD [address] [place] [address] Consulting Physician Dermatology 12/04/24 Chichi Gomez, RN [place] Nurse Band Tacker 01/01/25 Krish Benavides MD [address] [place] [address] Consulting Physician Radiation Oncology 02/27/25 Augie Mantilla MD [address] [address] Consulting Physician Plastic Surgery 02/28/25 documented as of this encounter
--- OUTSIDE RECORDS SUMMARY | 2025-03-02 00:09 | XMS_ITS | Encounter Summary ---
Author Organization [facility] Address [address] [facility] [place] [address] Phone Care Team Providers Care Healthcare Economics Manager Name Role Phone Rob Mendoza MD Primary Care Provider Chichi Gomez RN Unavailable Unavailable Phan Gómez MD Unavailable Teresa Ch MD Primary Care Provider [phone] Jasmin Kyle MD Unavailable [phone] Artie Flynn MD Primary Care Provider [phone] Chichi Gomez RN Unavailable Unavailable Krish Benavides MD Unavailable [phone] Augie Mantilla MD Unavailable [phone] Reason for Visit * Reason Comments Medication Refill Encounter Details Date Type Department Care Team (Late st Contact Info) Description 03/16/2024 Refill [facility] - Family Medicine [facility] [address] [place] [address] Rob Mendoza MD [address] [address] Medication Refill Social History Tobacco Use Types Packs/Day Years Used Date Smoking Tobacco: Former Cigarettes Q uit: 02/28/2014 Smokeless Tobacco: Never Alcohol Use Standard Drinks/Week Comments No 0 (1 standard drink = 0.6 oz pur e alcohol) [facility] Utilities Answer Date Recorded In the past 12 months has th e [employer]ian [employer], gas, oil, or water [employer] threatened to shut off services in your home? No 01/11/2024 Social Connection and Isolation Panel [NHANES] A nswer Date Recorded In a typical week, how many times do you talk on the phone with family, friends, or neighbors? Once a week 01/11/20 How often do you get togethe r with friends or relatives? Never 01/11/2024 How often do you attend chur ch or caodaism services? 1 to 4 times per year 01/11/2024 Do you belong to any clubs o r organizations such as adventism groups, unions, fraternal or athletic groups, or [...] Total Score - Questions 1-9 0 12/17 [facility] of Occupat ional Health - Occupational Stress [...] money to buy more. Never true 01/11/20 Within the past 12 months, t he [...] place to sleep or slept in a alf (including now)? No 01/11/2024 Sexually Active Control [...] AM CDT Medication(s) refilled and signed per [facility] Chronic Medication Refill Standing Order for Pediatricand Adult Patients. Requested Prescriptions Pending Prescriptions Disp Refills potassium chloride SA (KLORCON M) 20 MEQ Tablet Controlled Release [Pharmacy Med Name: POTASSIUM [id number] ER TABLETS] 360 Tablet 0 Sig: Take [...] Dept 03/01/24 Office Visit [facility] 11/11/23 Office Visit Rob Mendoza MD [facility] 09/01/23 Office Visit Rob Mendoza MD [facility] Showing recent visits within past 365 days [...] [facility] [address] [place] [phone] Krish Benavides MD [address] [place] [address] Discharge Disposition: Discharged to home or Selfcare 06/07/2025 11:00 AM CDT Office [facility] - Primary Care - [place] [address] [place] [address] Artie Flynn MD [address] [place] [address] documented as of this encounter Visit Diagnoses Not on filedocumented in this encounter Additional Health Concerns Assessment Noted Time PHQ-9 Depression Total Score: 0 01/11/20 9:52 AM CDT documented as of this encounter Care Teams Healthcare Economics Manager Relationship Specialty Start Date End Date Rob Mendoza MD [address] [address] PCP - General Family Medicine 09/30/18 08/31/24 Phan Gómez MD [address] [place] [address] PCP - Hospice Attending Provider 06/30/24 07/03/24 Teresa Ch MD [address] [place] [address] PCP - General Family Medicine 09/01/24 12/03/24 Artie Flynn MD [address] [place] [address] PCP - General Internal Medicine 12/04/24 Chichi Gomez, RN [place] Nurse Rolls Mill Operator 01/05/24 07/03/24 [place] [address] [place] [address] Consulting Physician Dermatology 12/04/24 Chichi Gomez, RN [place] Nurse Rolls Mill Operator 01/01/25 Krish Benavides MD [address] [place] [address] Consulting Physician Radiation Oncology 02/27/25 Augie Mantilla MD [address] [address] Consulting Physician Plastic Surgery 02/28/25 documented as of this encounter
--- OUTSIDE RECORDS SUMMARY | 2025-03-02 00:09 | XMS_ITS | Encounter Summary ---
Author Organization [facility] Address [address] [facility] [place] [address] Phone Care Team Providers Care Juice Weigher Name Role Phone Rob Mendoza MD Primary Care Provider [phone] Chichi Gomez RN Unavailable Unavailable Phan Gómez MD Unavailable [phone] Teresa Ch MD Primary Care Provider [phone] Jasmin Kyle MD Unavailable [phone] Artie Flynn MD Primary Care Provider Chichi Gomez RN Unavailable Unavailable Krish Benavides MD Unavailable [phone] Augie Mantilla MD Unavailable [phone] Reason for Visit * Reason Comments Medication Refill Encounter Details Date Type Department Care Team (Late st Contact Info) Description 08/12/2020 [facility]ill [facility] [address] [place] [address] Rob Mendoza MD [address] [address] Medication Refill Social History Tobacco Use Types [...] weeks ago CAD S/P percutaneous coronary angioplasty [facility] Rob Hernandez MD 6 months ago CAD S/P percutaneous coronary angioplasty [facility] Rob Hernandez MD 1 year ago CAD S/P percutaneous coronary angioplasty [facility] Rob Hernandez MD 1 year ago Essential hypertension [facility] Rob Hernandez MD 1 year ago [facility] Upcoming Appointments Future Appointments In 5 months Lab, [facility], [facility] In 5 months Rob Mendoza MD [facility] JULIANO Chapa GENERAL SURGEON - Recent and Past Visits Recent Visits Date Type Provider Dept 07/22/20 Office Visit Rob Mendoza MD [facility] 01/18/20 Telemedicine Rob Mendoza MD [facility] 07/19/19 Office Visit Rob Mendoza MD [facility] Showing recent visits within past 460 days with a meds authorizing provider and meeting all other requirements Future Appointments No visits were found meeting these conditions. Showing future appointments within next 90 days with a meds authorizing provider and meeting all other requirements 5 months ago (02/15/2020) clopidogrel (PLAVIX) 75 MG Tablet TAKE 1 TABLET DAILY Dispense: 90 TabÂ Â Â Â Refills: 1Â Â Â Â Start: 02/15/2020Â Â Â Â Routing to provider for review and approval. documented in this encounter Plan of Treatment Upcoming Encounters Date Type Department Care Team (Late st Contact Info) Description 03/20/2025 1:00 PM CDT Office Visit [facility] On[facility] Services [address] [place] [phone] [place] [address] [place] [address] Discharge Disposition: Discharged to home or Selfcare 06/07/2025 11:00 AM CDT Office Visit [facility] - Primary Care - [place] [address] [place] [address] Artie Flynn MD [address] [place] [address] documented as of this encounter Visit Diagnoses Not on filedocumented in this encounter Additional Health Concerns Assessment Noted Time PHQ-9 Depression Total Score: 0 07/22/20 20 8:40 AM CDT documented as of this encounter Care Teams Juice Weigher Relationship Specialty Start Date End Date Rob Mendoza MD [address] [address] PCP - General Family Medicine 09/30/18 08/31/24 Phan Gómez MD [address] [place] [address] PCP - Hospice Attending Provider 06/30/24 07/03/24 Teresa Ch MD [address] [place] [address] PCP - General Family Medicine 09/01/24 12/03/24 Artie Flynn MD [address] [place] [address] PCP - General Internal Medicine 12/04/24 Chichi Gomez, RN [place] Nurse Forensic Examiner 01/05/24 07/03/24 Jasmin Kyle MD [address] [place] [address] Consulting Physician Dermatology 12/04/24 Chichi Gomez, RN [place] Nurse Forensic Examiner 01/01/25 Krish Benavides MD [address] [place] [address] Consulting Physician Radiation Oncology 02/27/25 Augie Mantilla MD [address] [address] Consulting Physician Plastic Surgery 02/28/25 documented as of this encounter
--- OUTSIDE RECORDS SUMMARY | 2025-03-02 00:09 | XMS_ITS | Encounter Summary ---
Author Organization [facility] Address [address] [facility] [place] [address] Phone Care Team Providers Care Bailer Tenders Supervisor Name Role Phone Jasmin Kyle MD Unavailable [phone] Artie Flynn MD Primary Care Provider [phone] Chichi Gomez RN Unavailable Unavailable Krish Benavides MD Unavailable [phone] Augie Mantilla MD Unavailable [phone] Reason for Visit * Reason Onset Date Comments Advice Only 12/20/2024 Encounter Details Date Type Department Care Team (Late st Contact Info) Description 12/20/2024 Telephone [facility] [address] [place] [address] Artie Flynn MD [address] [place] [address] Advice Only Social History Tobacco Use Types Packs/Day Years Used Date Smoking Tobacco: Former Cigarettes Q uit: 02/28/2014 Smokeless Tobacco: Never Alcohol Use Standard Drinks/Week Comments No 0 (1 standard drink = 0.6 oz pur e alcohol) [facility] Utilities Answer Date Recorded In the [...] often do you attend chur ch or episcopalian services? More than 4 times per year 12/04/2024 Do you belong to any clubs o r organizations such as roman catholic groups, unions, fraternal or athletic groups, [...] Total Score - Questions 1-9 0 11/18 [facility] of Occupat ional Health - Occupational [...] medical appointments or from getting medications? No 11/18 In the past 12 months, has l [...] place to sleep or slept in a fci (including now)? No 01/11/2024 Housing Stability Vital Sign Answer Cosme e Recorded In the last 12 months, was t here a time when you were not able to pay the mortgage or rent on time? No 12/04/2024 In the past 12 months, how m any times have you moved where you were living? 1 12/04/2024 At any time in the past 12 m [facility], were you homeless or living in a fci (including now)? No 12/04/2024 Sexually Active Control Partners Comments Not Currently Comments No Sex and Gender Information Value Date Recorded Sex Assigned at Not on file Legal Sex Female 7:34 PM CDT Gender Identity Not on file Sexual Orientation Not on file documented as of this encounter Miscellaneous Notes * Telephone Encounter - Kimmy Ruiz RN - 12/20/2024 12:13 PM SOUND ENGINEER AUDIO CONTROL Routing to Tori Pickard, consumer loan specialist. D ENGINEER AUDIO CONTROL * Telephone Encounter - Bernie Hidalgo - 12/20/2024 12:02 PM CST call came in from [facility] for Nichelle Hunt a referral to a fruit preserver and it was sent to a plastic surgeon they just wanted to get the referral to the right office. Please check on it and get it to the right place Patient's PCP is Artie Flynn MD. Thank you. D ENGINEER AUDIO CONTROL documented in this encounter Plan of Treatment Upcoming Encounters Date Type Department Care Team (Late st Contact Info) Description 03/20/2025 1:00 PM CDT Office Visit [facility] Oncology Services [address] [place] [address] Krish Benavides MD [address] [place] [address] Discharge Disposition: Discharged to home or Selfcare 06/07/2025 11:00 AM CDT Office Visit [facility] - Primary Care - [place] [address] [place] [address] Artie Flynn MD [address] [place] [address] documented as of this encounter Visit Diagnoses Not on filedocumented in this encounter Additional Health Concerns Assessment Noted Time PHQ-9 Depression Total Score: 0 12/04/19 1:05 PM SOUND ENGINEER AUDIO CONTROL documented as of this encounter Care Teams Bailer Tenders Supervisor Relationship Specialty Start Date End Date Artie Flynn MD [address] [place] [address] PCP - General Internal Medicine 12/04/24 Jasmin Kyle MD [address] [place] [address] Consulting Physician Dermatology 12/04/24 Chichi Gomez, RN [place] Nurse Credit Support Counselor 01/01/25 Krish Benavides MD [address] [place] [address] Consulting Physician Radiation Oncology 02/27/25 Augie Mantilla MD [address] [address] Consulting Physician Plastic Surgery 02/28/25 documented as of this encounter
--- OUTSIDE RECORDS SUMMARY | 2025-03-02 00:09 | XMS_ITS | Encounter Summary ---
Author Organization [facility] Address [address] [facility] [place] [address] Phone Care Team Providers Care Lens Block Gauger Name Role Phone Rob Mendoza MD Primary Care Provider Chichi Gomez RN Unavailable Unavailable Phan Gómez MD Unavailable Teresa Ch MD Primary Care Provider [phone] Jasmin Kyle MD Unavailable [phone] Artie Flynn MD Primary Care Provider Chichi Gomez RN Unavailable Unavailable Krish Benavides MD Unavailable Augie Mantilla MD Unavailable [phone] Reason for Visit * Reason Comments Medication Refill Encounter Details Date Type Department Care Team (Late st Contact Info) Description 08/05/2020 Refill [facility] [address] [place] [address] Rob Mendoza MD [address] [address] Medication Refill Social History Tobacco Use Types Packs/Day Years Used Date Smoking Tobacco: Former Cigarettes Q uit: 02/28/2014 Smokeless Tobacco: Never Alcohol Use Standard Drinks/Week Comments No 0 (1 standard drink = 0.6 oz pur e alcohol) PHQ-2 Answer Date Recorded Total Score - Questions 1-9 0 1002/2020 Comments No Sex and Gender Information Value [...] Description 03/20/2025 1:00 PM CDT [facility] [address] [place] [phone] Krish Benavides MD [address] [place] [address] Discharge Disposition: Discharged to home or Selfcare 06/07/2025 11:00 AM CDT Office Visit [facility] - Primary Care - [place] [address] [place] [address] Artie Flynn MD [address] [place] [address] documented as of this encounter Visit Diagnoses Not on filedocumented in this encounter Additional Health Concerns Assessment Noted Time PHQ-9 Depression Total Score: 0 07/22/20 8:40 AM CDT documented as of this encounter Care Teams Lens Block Gauger Relationship Specialty Start Date End Date Rob Mendoza MD #[address] [address] PCP - General Family Medicine 09/30/18 08/31/24 Phan Gómez MD [address] [place] [address] PCP - Hospice Attending Provider 06/30/24 07/03/24 Teresa Ch MD [address] [place] [address] PCP - General Family Medicine 09/01/24 12/03/24 Artie Flynn MD [address] [place] [address] PCP - General Internal Medicine 12/04/24 Chichi Gomez, WALTER [place] Nurse Knitter Wire Mesh 01/05/24 07/03/24 [place] [address] [place] [address] Consulting Physician Dermatology 12/04/24 Chichi Gomez, RN [place] Nurse Knitter Wire Mesh 01/01/25 Krish Benavides MD [address] [place] [address] Consulting Physician Radiation Oncology 02/27/25 Augie Mantilla MD [address] [address] Consulting Physician Plastic Surgery 02/28/25 documented as of this encounter
--- OUTSIDE RECORDS SUMMARY | 2025-03-02 00:09 | XMS_ITS | Encounter Summary ---
Author Organization [facility] Address [address] [place] [address] Phone Care Team Providers Care Quilting Supervisor Name Role Phone Rob Mendoza MD Primary Care Provider [phone] Teresa Ch MD Primary Care Provider [phone] Jasmin Kyle MD Unavailable [phone] Artie Flynn MD Primary Care Provider [phone] Chichi Gomez RN Unavailable Unavailable Krish Benavides MD Unavailable [phone] Augie Mantilla MD Unavailable [phone] Encounter Details Date Type Department Care Team (Late st Contact Info) Description 07/10/2024 Nursing Facility [facility] [address] [place] [phone] Chris Chau, [address] [id number] Social History Tobacco Use Types Packs/Day Years Used Date Smoking Tobacco: Former Cigarettes Q uit: 02/28/2014 Smokeless Tobacco: Never Alcohol Use Standard Drinks/Week Comments No 0 (1 standard drink = 0.6 oz pur e alcohol) [facility] Utilities Answer Date Recorded In the past [...] How often do you attend latter-day or faith serv ices? Patient declined 06/30/2024 [...] any time in the past 12 m [facility], were you homeless or living in [...] Chau, PAC - 07/10/2024 12:09 PM CDT [facility] ASSIST[facility] PROGRESS NOTE Nichelle Hunt is a 84 y.o. female [facility]mediate facility for rehabilitation. Subjective: [...] Session: Patient declined Stress: Patient Declined (06/30/2024) [employer] - Occupational Stress Questionnaire Feeling of Stress : Patient declined Social Integration: Patient Declined (06/30/2024) Social Connection and Isolation Panel [NHANES] Frequency of Communication with Friends and Family: Patient declined Frequency of Social Gatherings with Friends and Family: Patient declined Attends Jehovah'S Witness Services: Patient declined Active Member of Clubs [...] None Assessment/Plan: Generalized weakness and deconditioning Receiving half-way care [...] system and there may be errors in graduate research assistant. Despite proof reading the note, there may be mistakes and I apologize for those. By: Chrsi Chau, PAC, 07/10/2024 12:09 PM CDT documented in this encounter Plan of Treatment Upcoming Encounters Date Type Department Care Team (Late st Contact Info) Description 03/20/2025 1:00 PM CDT Office Visit [facility] On[facility] Services [address] [place] [phone] Krish Benavides MD [address] [place] [address] Discharge Disposition: Discharged to home or Selfcare 06/07/2025 11:00 AM CDT Office Visit [facility] - Primary Care - [place] [address] [place] [phone] Artie Flynn MD [address] [place] [address] documented as of this encounter Visit Diagnoses Not on filedocumented in this encounter Additional Health Concerns Assessment Noted Time PHQ-9 Depression Total Score: 0 01/11/20 24 9:52 AM CDT documented as of this encounter Care Teams Quilting Supervisor Relationship Specialty Start Date End Date Rob Mendoza MD [address] [address] PCP - General Family Medicine 09/30/18 08/31/24 Teresa Ch MD [address] [place] [address] PCP - General Family Medicine 09/01/24 12/03/24 Artie Flynn MD [address] [place] [address] PCP - General Internal Medicine 12/04/24 [place] [address] [place] [address] Consulting Physician Dermatology 12/04/24 Chichi Gomez, W[place] Nurse Services Clerk 01/01/25 Krish Benavides MD [address] [place] [address] Consulting Physician Radiation Oncology 02/27/25 Augie Mantilla MD [address] [address] Consulting Physician Plastic Surgery 02/28/25 documented as of this encounter
--- OUTSIDE RECORDS SUMMARY | 2025-03-02 00:09 | XMS_ITS | Clinical Summary ---
Author Organization [facility] Address [address], [address] [address] Phone Care Team Providers Care Fire Pot Operator Name Role Phone Jasmin Kyle MD Unavailable [phone] Artie Flynn MD Primary Care Provider [phone] Chichi Gomez RN Unavailable Unavailable Krish Benavides MD Unavailable Augie Mantilla MD Unavailable [phone] Allergies Active Allergy Reactions Criticality Noted Date Comments Peanut (Diagnostic) Other (see Comments) 2017 Makes gout flare up Hydrocodone-Acetamin ophen Unknown Medications nitroGLYCERIN (NITROSTAT) 0.4 MG SL Tablet 1 Tablet by Sublingual route as needed for Chest pain. 30 Tablet 5 09/01/20 23 Active albuterol (Proventil HFA) 108 (90 Base) MCG/ACT Aerosol Solution take 2 Puffs by inhalation every 4 hours as needed for Cough or Wheezing. Active budesonide-form oterol fumarate (SYMBICORT) 160-4.5 MCG/ACT Aerosol take 1 Puff by inhalation 2 times daily. 06/30/20 24 Active bumetanide (BUMEX) 2 MG TabletIndicatio ns:Congestive heart failure, unspecified HF chronicity, unspecified heart failure type (HCC) Take 2 mg by mouth daily. Active potassium chloride (KLOR-CON) 20 MEQ PackIndications :Congestive heart failure, unspecified HF chronicity, unspecified heart failure type (HCC) Take 20 mEq by mouth 2 times daily. 2 tabs po BID Active silver sulfADIAZINE (SILVADENE) 1 % CreamIndication s:Skin lesion of face Apply 2 times daily. Active acetaminophen (TYLENOL) 500 MG TabletIndicatio ns:Skin lesion of face Take 2,000 mg by mouth every 4 hours as needed for Moderate or more severe pain. Pt takes two 500 mg tabs po AM and hs Active gabapentin (NEURONTIN) 300 MG CapsuleIndicati ons:Neuropathic Pain,Peripheral Neuropathy Take 1 Capsule by mouth 3 times daily for 360 days. Indications: Neuropathic Pain, Peripheral Nerve Disease 270 Capsule 3 09/01/20 24 025 Active levothyroxine (SYNTHROID) 50 MCG Tablet Take 1 Tablet by mouth daily for 360 days. 90 Tablet 3 09/11/20 24 025 Active metoprolol tartrate (LOPRESSOR) 50 MG Tablet Take 1 Tablet by mouth 2 times daily. 180 Tablet 1 09/11/20 24 Active clopidogrel (PLAVIX) 75 MG TabletIndicatio ns:Congestive heart failure, unspecified HF chronicity, unspecified heart failure type (HCC) TAKE 1 TABLET BY MOUTH DAILY. 90 Tablet 1 11/17/19 25 Active Cholecalciferol (Vitamin D3) 125 mcg Capsule Take 1 Capsule by mouth daily. Active miconazole 2 % PowderIndicatio ns:Tinea corporis Apply 1 Application 2 times daily. 85 g 12/04/19 25 Active allopurinol (ZYLOPRIM) 300 MG Tablet Take 1 Tablet by mouth daily. 90 Tablet 1 03/10/20 25 Active fenofibrate (LOFIBRA) 54 MG Tablet Take 1 Tablet by mouth daily. 90 Tablet 1 03/10/20 25 Active fenofibrate (LOFIBRA) 54 MG Tablet Take 1 Tablet by mouth daily. 90 Tablet 1 09/11/20 24 025 Discontinued allopurinol (ZYLOPRIM) 300 MG Tablet Take 1 Tablet by mouth daily. 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 Sinus pause 06/30/2024 Coronary artery disease with [...] CHF (congestive heart failure) 02/28/2025 Asthma 02/28/2025 Encounters Date Type Department Care Team Description 02/28/2025 1:30 PM CDT [facility] [address] [place] [address] Krish Benavides MD Squamous cell carcinoma of nasolabial fold (Primary Dx) Discharge Disposition: Discharged to home or Selfcare 02/28/2025 Travel 02/20/2025 Patient Outreach [facility] [address] [place] [address] Chichi Gomez, RN Care Management 02/15/2025 Refill [facility] Primary Care - [place] [address] [place] [address] Teresa Ch MD Medication Refill 02/08/2025 Patient Outreach [facility] [address] [place] [address] Akosua Hood Care Management (Weekly monitoring call-(Week 4)) 02/01/2025 Patient Outreach [facility] [address] [place] [address] Chichi Gomez, RN Care Management (Weekly Monitoring Call ) 01/23/2025 Patient Outreach [facility] [address] [place] [address] Chichi Gomez, RN Care Management (Weekly Monitoring Call ) 01/17/2025 Patient Outreach [facility] [address] [place] [address] Chichi Gomez, RN Care Management (Weekly Monitoring Call ) 01/09/2025 10:00 AM CDT Patient Outreach [facility] [address] [place] [address] Chichi Gomez, RN Care Management (CM RN Enrollment) 01/09/2025 Plan of Care Documentation [facility] [address] [place] [address] 01/05/2025 Patient Outreach [facility] [address] [place] [address] Chichi Gomez, RN Care Management 01/01/2025 Patient Outreach [facility] [address] [place] [address] Chichi Gomez, RN Patient Outreach (High Risk MSSP) 12/20/2024 Telephone [facility] [address] [place] [address] Artie Flynn MD Advice Only 12/04/2024 1:00 PM INSURANCE UNDERWRITER SALES Office Visit [facility] Primary [facility] [place] [address] [place] [address] Artie Flynn MD Hypertension, essential (Primary Dx); Mixed hyperlipidemia; Hypothyroidism due to acquired atrophy of thyroid; Arthritis; Stage 3b chronic kidney disease (HCC); Tinea corporis; Squamous cell carcinoma, face; Encounter for vaccination Discharge Disposition: Discharged to home or Selfcare 12/04/2024 Travel from Last 3 Months Immunizations Immunization Administration [...] Valent 9 Pneumococcal conjugate PCV20 , polysaccharide [id number] conjugate, adjuvant, PF 09/01/2024 TD VACCINE 12/16/2008 [...] drink = 0.6 oz pur e alcohol) [facility] Utilities Answer Date Recorded In [...] often do you attend chur ch or restoration services? 1 to 4 times per year 01/09/2025 Do you belong to any clubs o r organizations such as moravian groups, unions, fraternal or athletic groups, or [...] Total Score - Questions 1-9 0 12/17 [facility] of Occupat ional Health - Occupational Stress [...] money to buy more. Never true 01/10/20 Within the past 12 months, t he [...] in the past 12 m [facility], were you homeless or living in a half-way (including now)? No 01/09/2025 Sexually Active Control Partners Comments Not Currently Comments No Sex and Gender Information Value Date Recorded Sex Assigned at Not on file Legal Sex Female 7:34 PM CDT Gender Identity Not on file Sexual Orientation Not on file Last Filed Vital Signs Vital Sign Reading Time Taken Comments Blood Pressure 134/62 02/28/2025 1:12 PM CDT Pulse 58 02/28/2025 1:12 PM CDT Temperature 36.6 C (97.9 F) 02/28/2025 1:12 PM CDT Respiratory Rate 18 02/28/2025 1:12 PM CDT Oxygen Saturation 96% 02/28/2025 1:12 PM CDT Inhaled Oxygen Concentration - - Weight 90.2 kg (198 lb 14.4 oz) 02/28/2025 1:12 PM CDT Height 162.6 cm (5' 4 ) 02/28/2025 1:12 PM CDT Body Mass Index 34.14 02/28/2025 1:12 PM CDT Plan of Treatment Upcoming Encounters Date Type Department Care Team (Late st Contact Info) Description 03/20/2025 1:00 PM CDT [facility] [address] [place] [phone] Krish Benavides MD [address] [place] [address] Discharge Disposition: Discharged to home or Selfcare 06/07/2025 11:00 AM CDT Office Visit [facility] - Primary Care - [place] [address] [place] [address] Artie Flynn MD [address] [place], [place] [id number] Health Maintenance Due Date Last Done Comments DEXA Bone Density 1940 Hepatitis C Virus (HCV) Screening 1940 TdaP Immunization 1940 Zoster Immunization (1 of 2) 03/13/2009 01/16/2009 Respiratory Syncytial Virus (RSV) Immunization (Adult) (1 - 1-dose 75+ series) 2015 SARS-COV-2 Immunization (8 - Moderna risk season) 2025 12/04/2024, 07/16/2023, 07/23/2022, Additional history exists Influenza Immunization Completed , 06/03/2023, 06/17/2022, Additional history exists Pneumococcal Immunization (50+ years) Completed 09/01/2024, 07/26/2015, 07/18/2009 Pneumococcal Immunization Combined Discontinued 09/01/2024, 07/26/2015, 07/18/2009 Hepatitis B Immunization Aged Out No longer eligible based on patient's age to complete this topic Human Papillomavirus (HPV) Immunization Aged Out No longer eligible based [...] On track( 9:56 AM CDT) Yes Chichi Gomez RN Note: Follow Up Date 02/2025 - [...] Follow Treatment Plan Patient Goals On track( 9:56 AM CDT) Yes Chichi Gomez RN Note: Follow Up Date 02/2025 - [...] Plan Activity and Exercise (Wellness) On track( 9:40 AM CDT) No Chichi Gomez RN Note: Evidence-based guidance: Review current exercise [...] therapist for assessment and exercise/activity plan. Notes: Procedures Procedure Name Priority Date/Time Associated Diagnosis Comments ONCOLOGY CONSULT 02/08/2025 12:0 0 AM CDT PATHOLOGY SURGICAL 01/16/2025 12 :00 AM CDT PATHOLOGY SURGICAL 01/16/2025 12 :00 AM CDT PLASTIC SURGERY PROCEDURE 01/16/2025 12:00 AM CDT PROTIME (PT) (PROTHROMBIN TIME) 01/12/2025 12:00 AM CDT APTT (PTT) 01/12/2025 12:00 AM CDT BASIC METABOLIC PANEL W/ CALCIUM TOTAL 01/12/2025 12:00 AM CDT EXTERNAL PLASTIC SURGERY REFERRAL Routine 01/04/2025 12:00 AM CDT Squamous cell carcinoma, face from Last 3 Months Results * ONCOLOGY CONSULT (02/08/2025 12:00 AM CDT) 02/08/2025 us Provider Scan GENERIC SCAN ORDERS CONSULT Evelyn l Result Performing Organization Address City/[facility]/ZIP Co de Phone Number SCAN * PLASTIC SURGERY PROCEDURE (01/16/2025 12:00 AM CDT) 01/16/2025 us Provider Scan GEN ORDERS Final Result SCAN * PATHOLOGY SURGICAL (01/16/2025 12:00 AM CDT) Only the most recent of2 resultswithin the time period is included. 01/16/2025 us Artie Flynn MD PATHOLOGY/CYTOLOGY ORDERA BLES Final Result Performing Organization Address City/[facility]/ZIP Co de Phone Number SCAN * APTT (PTT) (01/12/2025 12:00 AM CDT) 01/12/2025 us Provider Scan HEMATOLOGY ORDERABLES Final Resu lt Performing Organization Address [facility] [[email or web address]] de Phone Number SCAN * PROTIME (PT) (PROTHROMBIN TIME) (01/12/2025 12:00 AM CDT) INR 1.1 SCAN 01/12/2025 us Provider Scan HEMATOLOGY ORDERABLES Final Resu lt Performing Organization Address [facility] [[email or web address]] de Phone Number SCAN * BASIC METABOLIC PANEL W/ CALCIUM TOTAL (01/12/2025 12:00 AM CDT) 01/12/2025 us Provider Scan CHEMISTRY ORDERABLES Final Resul t Performing Organization Address [facility] [[email or web address]] de Phone Number SCAN * EXTERNAL PLASTIC SURGERY REFERRAL (01/04/2025 12:00 AM CDT) 01/04/2025 Artie Flynn MD OUTPT REFERRALS EXT/INT F inal Result Performing Organization Address [facility] [[email or web address]] de Phone Number SCAN from Last 3 Months Additional Health Concerns Active Problems Noted Date Diagnosed Date Activity and Exercise (Wellness) 01/09/2025 [facility] * Guarantor: [facility] Account Type Relation to Patient Date of Phone Billing Address Institutional Other [address] [place] [id number] Advance Directives Documents on File Type Date Recorded Patient Media Account Executive Expl anation POLST/POST/PR DNR 06/30/2024 10:37 AM POLS T, 06/30/2024 Power of Airplane Captain for Health Care 01/11/2024 12:13 PM POWER OF [employer] Living Will 01/11/2024 [...] Agents on File Name Relationship Healthcare Agent [facility] Communication [facility] POA Care Teams Fire Pot Operator Relationship Specialty Start Date End Date Artie Flynn MD [address] [place] [address] PCP - General Internal Medicine 12/04/24 Jasmin Kyle MD [address] [place] [address] Consulting Physician Dermatology 12/04/24 Chichi Gomez RN [place] Nurse Drug Safety Assistant 01/01/25 Krish Benavides MD [address] [place] [address] Consulting Physician Radiation Oncology 02/27/25 Augie Mantilla MD [address] [address] Consulting Physician Plastic Surgery 02/28/25
--- OUTSIDE RECORDS SUMMARY | 2025-03-02 00:09 | XMS_ITS | Encounter Summary ---
Author Organization [facility] Address [address] [facility] [place] [address] Phone Care Team Providers Care Router Setter Name Role Phone Rob Mendoza MD Primary Care Provider Chichi Gomez RN Unavailable Unavailable Phan Gómez MD Unavailable [phone] Teresa Ch MD Primary Care Provider [phone] Jasmin Kyle MD Unavailable Artie Flynn MD Primary Care Provider [phone] Chichi Gomez RN Unavailable Unavailable Krish Benavides MD Unavailable Augie Mantilla MD Unavailable [phone] Reason for Visit * Reason Comments Medication Refill Encounter Details Date Type Department Care Team (Late st Contact Info) Description 07/16/2020 Refill [facility] - Family Medicine [facility] [address] [place] [address] Rob Mendoza MD [address] [address] Medication Refill Social History Tobacco Use Types [...] Description 03/20/2025 1:00 PM CDT [facility] [address] [place] [phone] Krish Benavides MD [address] [place] [address] Discharge Disposition: Discharged to home or Selfcare 06/07/2025 11:00 AM CDT Office Visit [facility] - Primary Care - [place] [address] [place] [address] Artie Flynn MD [address] [place] [address] documented as of this encounter Visit Diagnoses Not on filedocumented in this encounter Additional Health Concerns Assessment Noted Time PHQ-9 Depression Total Score: 0 01/24/20 19 10:00 AM CDT documented as of this encounter Care Teams Router Setter Relationship Specialty Start Date End Date Rob Mendoza MD #[address] [address] PCP - General Family Medicine 09/30/18 08/31/24 Phan Gómez MD [address] [place] [address] PCP - Hospice Attending Provider 06/30/24 07/03/24 Teresa Ch MD [address] [place] [address] PCP - General Family Medicine 09/01/24 12/03/24 Artie Flynn MD [address] [place] [address] PCP - General Internal Medicine 12/04/24 Chichi Gomez, WALTER [place] Nurse Asl Interpreter 01/05/24 07/03/24 [place] [address] [place] [address] Consulting Physician Dermatology 12/04/24 Chichi Gomez, RN [place] Nurse Asl Interpreter 01/01/25 Krish Benavides MD [address] [place] [address] Consulting Physician Radiation Oncology 02/27/25 Augie Mantilla MD [address] [address] Consulting Physician Plastic Surgery 02/28/25 documented as of this encounter
--- OUTSIDE RECORDS SUMMARY | 2025-03-02 00:09 | XMS_ITS | Encounter Summary ---
Author Organization [facility] Address [address] [facility] [place] [address] Phone Care Team Providers Care Butting Saw Operator Name Role Phone Rob Mendoza MD Primary Care Provider [phone] Teresa Ch MD Primary Care Provider [phone] Jasmin Kyle MD Unavailable [phone] Artie Flynn MD Primary Care Provider [phone] Chichi Gomez RN Unavailable Unavailable Krish Benavides MD Unavailable [phone] Augie Mantilla MD Unavailable [phone] Encounter Details Date Type Department Care Team (Late st Contact Info) Description 07/07/2024 Nursing Facility [facility] [place] [phone] Elvia Banks MD [address] [place] [address] Social History Tobacco Use Types Packs/Day Years Used Date Smoking Tobacco: Former Cigarettes Q uit: 02/28/2014 Smokeless Tobacco: Never Alcohol Use Standard Drinks/Week Comments No 0 (1 standard drink = 0.6 oz pur e alcohol) [facility] Utilities Answer Date Recorded In the [...] declined 06/30/2024 How often do you attend confucianism or restorationism serv ices? Patient declined 06/30/2024 Do you belong to any clubs o r organizations such as confucianism groups, unions, fraternal or athletic groups, or [...] 12/17 [facility] of Occupat ional Health - Occupational [...] in the past 12 m [facility], were you homeless or living [...] Description 03/20/2025 1:00 PM CDT Office Visit [facility] - Cancer Center Oncology Services [address] [place] [address] Krish Benavides MD [address] [place] [address] Discharge Disposition: Discharged to home or Selfcare 06/07/2025 11:00 AM CDT Office Visit [facility] - Primary Care - [place] [address] [place] [address] Artie Flynn MD [address] [place] [address] documented as of this encounter Visit Diagnoses Not on filedocumented in this encounter Additional Health Concerns Assessment Noted Time PHQ-9 Depression Total Score: 0 01/11/20 9:52 AM CDT documented as of this encounter Care Teams Butting Saw Operator Relationship Specialty Start Date End Date Rob Mendoza MD #2 [facility] [address] [place] [address] PCP - General Family Medicine 09/30/18 08/31/24 Teresa Ch MD [address] [place] [address] PCP - General Family Medicine 09/01/24 12/03/24 Artie Flynn MD [address] [place] [address] PCP - General Internal Medicine 12/04/24 [place] [address] [place] [address] Consulting Physician Dermatology 12/04/24 Chichi Gomez, W[place] Nurse Switch Tender 01/01/25 Krish Benavides MD [address] [place] [address] Consulting Physician Radiation Oncology 02/27/25 Augie Mantilla MD [address] [place] [address] Consulting Physician Plastic Surgery 02/28/25 documented as of this encounter
--- NOTE | 2025-03-02 06:51 | WPDHPUPDATE1 ---
History and Physical Update Update Date/Time: 03/02/25 06:51 Patient seen and examined in pre-operative holding area. No interval change in medical history or symptoms. Patient recalls previous discussion of benefits and alternatives to procedure. Continues to desire to proceed with left nasal wound full thickness skin graft from upper arm. Reviewed procedure, post-op expectations and risks including but not limited to bleeding, infection, partial/total graft loss, donor site complications, undesireable cosmetic appearance, no change or worsening of symptoms. I discussed the possible use of assistants and their participation in the case. Patient stated understanding and signed the consent form wishing to proceed.
--- NOTE | 2025-03-02 06:51 | W.PM.PROC2 ---
Procedure Note - Detailed Date of Procedure 03/02/25 Pre-op Diagnosis open wound left nose and cheek - previous history squamous cell excision Post-op Diagnosis Same Procedure Performed full thickness skin graft left nose and cheek. Surgeon Augie Mantilla MD Supervisor Sterile Processing rohan lima pa-c Anesthesia General Description of Procedure Patient was seen in the preop holding area where the donor side and nose were marked and consent form was signed by patient is power commercial attorney. Patient was taken back to the operating on a stretcher in the supine position. Time-out was performed with Anesthesia, surgeon, and staff a Gram patient's name, site, and surgery to be performed. SCDs were placed on the lower extremities and inflated. Antibiotics were given IV. After general anesthesia was administered the donor site and nose were prepped and draped in the usual sterile fashion. I injected 10 cc of 1% lidocaine with epinephrine and 0.5% Marcaine plain around the donor site and the graft site. I proceeded 1st with preparation of the recipient site by using a 15 blade scalpel to circumferentially excise the nonviable eschar and thinned tissue that remained at her previous squamous cell excision site. This was excised down to subcutaneous tissue with healthy bleeding tissue. No clear residual squamous cell like tissue was observed. There was healthy bleeding coming from this granulation tissue. I irrigated with normal saline. This wound measured 2 x 2 cm. This marking was transposed to the left medial arm. I proceeded with making an elliptical incision around this left arm marking through skin and dermis with a 15 blade scalpel and proceeded with harvesting the full-thickness skin graft. Irrigated with normal saline and hemostasis with Bovie cautery. This donor site was closed with 3-0 Vicryl for dermis and 4-0 Monocryl for subcuticular closure. The full-thickness skin graft was defatted down to dermis with iris scissors. Next I proceeded with suturing the graft onto the recipient bed with 3-0 nylon tacking sutures. The graft was trimmed to fit appropriately with reasonable stretch. 4-0 chromic was used to secure the remainder of the graft in running fashion. A Xeroform and cotton ball bolster was then created and secured with the previously placed 3-0 nylon sutures. There was good compression of the graft. 4 x 4 and pressure dressing was applied to the nose after irrigating the eye with BSS. Dermabond, 4 x 4, ABD and Dwayne wrap was applied to the left arm. The patient was awakened from anesthesia and transferred to the recovery room in stable condition. Complications: None Estimated blood loss: 5 cc Disposition: Patient tolerated the procedure well and will go home later today. Rohan Lima PA-C was essential for positioing, retraction, closure and dressing placment [facility] [place] Surgery - Charge Forward: Surgery Billing ([id number] same for rohan adding modifier )
[2025-03-02] MEDS: LACTATED RINGERS 1,000 ML 30 ML IV CONT (10:30)
--- NOTE | 2025-03-02 11:51 | WPDANESEPPF ---
Anes - Initial Pre Proc Eval Procedure: Operation Date: 03/02/25 12:00 Proposed Procedures p Full Thickness Skin Graft Left Cheek and Left Nasal Sidewall - Augie Mantilla MD Date/Time: 03/02/25 11:51 Surgeon: Augie Mantilla MD Pre Op Diagnosis: sq cell CA left cheek and nasal sidewall Patient Data Age: 84 Gender: F Height: 1.6 m Weight: 90.3 kg Last Vital Signs Temp 36.6 C 03/02/25 10:00 Pulse 69 03/02/25 10:00 Resp 16 03/02/25 10:00 BP 155/64 H 03/02/25 10:00 Pulse Ox 95 03/02/25 10:00 Allergies Allergy/AdvReac Type Severity Reaction Status Date / Time hydrocodone (From Vicodin) AdvReac Intermediate Nausea and Verified 03/02/25 11:27 Vomiting Opioids - Morphine Analogues AdvReac Unknown Verified 03/02/25 11:27 oxycodone AdvReac constipatio Verified 03/02/25 11:27 h peanut AdvReac Other Verified 03/02/25 11:27 Home Medications Medication Instructions Recorded Confirmed Type acetaminophen 500 mg capsule 1,000 mg PO BID PRN pain 01/10/25 02/20/25 History albuterol sulfate 90 mcg/actuation 2 inh inhalation Q8H PRN shortness 01/10/25 02/20/25 History aerosol inhaler of breath or wheezing allopurinol 300 mg tablet 300 mg PO DAILY 01/10/25 02/20/25 History budesonide-formoterol HFA 160 2 inh inhalation Q12H 01/10/25 02/20/25 History mcg-4.5 mcg/actuation aerosol inhaler (Symbicort) bumetanide 2 mg tablet 2 mg PO DAILY 01/10/25 02/20/25 History clopidogrel 75 mg tablet 75 mg PO DAILY 01/10/25 02/20/25 History fenofibrate 54 mg tablet 54 mg PO DAILY 01/10/25 02/20/25 History fenofibrate 54 mg tablet 54 mg PO DAILY 01/10/25 02/20/25 History gabapentin 100 mg capsule 300 mg PO TID 01/10/25 02/20/25 History levothyroxine 50 mcg tablet 50 mcg PO DAILY 01/10/25 02/20/25 History nitroglycerin 0.4 mg sublingual 0.4 mg sublingual Q5M PRN chest 01/10/25 02/20/25 History tablet pain potassium chloride 20 mEq 40 meq PO BID 01/10/25 02/20/25 History tablet,extended release(part/cryst) metoprolol tartrate 50 mg tablet 50 mg PO BID 01/16/25 02/20/25 History cholecalciferol (vitamin D3) 125 5,000 unit PO DAILY 02/08/25 02/20/25 History mcg (5,000 unit) tablet peg [id number] 1 1 drp EACH EYE BID 02/08/25 02/20/25 History %-0.2 %-0.2 % eye drops (Dry Eye Relief) cephalexin 500 mg capsule 500 mg PO Q12H #14 caps 03/02/25 Rx Patient hx anesthesia problems: none Family hx anesthesia problems: none Results Review: All pre-operative results and documents have been reviewed as part of the pre-operative evaluation. [facility] Past Medical History Medical History Basal cell carcinoma of right earlobe Surgical History Surgical History Status post surgical removal of malignant neoplasm of skin Social History Social History Social History: former smoker Smoking packs per day: 0.5 Smoking cigarettes per day: 10.0 Years smoked: 40 Smoking pack-years: 20.00 Smoking status: Former smoker Tobacco type: cigarettes Smoking end date: 10/18/13 Alcohol intake: never Substance use: never Substance use type: does not use Living arrangements: alone Spiritual care concerns: No (Mandaeism) Anes - Eval Final PreProcedure Day of Procedure 03/02/25 11:51 Patient weight: obese Heart: regular rate and rhythm Lungs: decreased breath sounds Airway: Mallampati scale class II Neurological: alert and oriented Last oral intake: >/= 8 hours ASA classification: IV Emergent: no Anesthetic plan: proceed Anesthesia type and monitoring: general LMA and standard monitoring Results Review: All pre-operative results and documents have been reviewed as part of the pre-operative evaluation. Informed Consent: The patient's anesthetic plan and its attendant risks and benefits were discussed with the patient/family/POA. Questions were solicited and answers provided to the satisfaction of the patient/family/POA.
[2025-03-02] MEDS: ceFAZolin 2 GM/D5W 50 ML 2 GM/50 ML BAG IVPB (11:55)
[2025-03-02] MEDS: LIDO 1%/EPINEPHRINE 1:100,000 50 ML VIAL 10 ML INFILTRATE (12:00)
[2025-03-02] MEDS: BUPivacaine HCL 0.5% 10 ML AMP INFILTRATE (12:00)
--- NOTE | 2025-03-02 14:22 | SUR.PHASEII ---
ASSISTED WITH DRESSING PATIENT.
== END 2025-03-02 14:22 | disposition home or self-care (01) ==
PROVIDERS: PCP Internal Medicine; Visit Provider Plastic Surgery
PROC: (CPT 15260; principal; 2025-03-02 12:00)
DX: Z48.1 Encounter for planned postprocedural wound closure (principal); Z85.828 Personal history of other malignant neoplasm of skin
CPT/HCPCS: 15260; 15004; 88304; J0690; J1100; J2003; J2004; J2405; J2704; J3010; J7120